=== PATIENT | male | born 1975 | race African-American/Black ===

== ENCOUNTER 2020-03-05 23:56 | Inpatient (IN) | payer BC, OTHER ==
[2020-03-06] MEDS ORDERED: Acetaminophen 325 MG TAB PO PRN (01:56)
[2020-03-06] MEDS ORDERED: Aspirin Chewable 81 MG TAB PO SCH (02:00)
[2020-03-06] MEDS ORDERED: Dextrose 5% in Water 1,000 ML IV PRN (02:05)
[2020-03-06] MEDS ORDERED: Dextrose 50% Abboject 50 ML SYRINGE SLOW IVP PRN (02:05)
[2020-03-06] MEDS ORDERED: Insulin Regular 300 UNITS/3 ML VIAL SC PRN (02:05)
--- NOTE | 2020-03-06 02:15 | PDOC.EVN ---
Event Note - Event Note Event Note: [id number] HP dictated
[2020-03-06] MEDS: cefTRIAXone\\ROCEPHIN 1 GM in Sodium Chloride 0.9% 100 ML IVPB SCH (02:25)
[2020-03-06] MEDS: Diltiazem 125 MG in Sodium Chloride 0.9% 100 ML IVPB SCH ×2 (02:36→17:33)
[2020-03-06] MEDS: Azithromycin 500 MG in Sodium Chloride 0.9% 250 ML 250 ML IVPB SCH (02:37)
--- NOTE | 2020-03-06 03:05 | HP ---
CHIEF COMPLAINT: Shortness of breath. HISTORY OF PRESENT ILLNESS: Mr. Ramirez is a 44-year-old male with past medical history of hypertension, diabetes mellitus, sleep apnea, morbid obesity, among others, presents to [facility] Emergency Room with shortness of breath, fatigue, and weakness. Workup in the emergency room, the patient was found to be in atrial fibrillation with rapid ventricular response. The patient was having low oxygen saturation, placed on nasal cannula, saturation 94% on 3 L/minute nasal cannula. The patient denies fevers or chills. Chest x-ray showed right-sided infiltrate/pneumonia. Rapid COVID-19 test positive. In the emergency room, the patient was given Cardizem, followed by metoprolol. Heart rate remained in the 120s. The patient is on IV diltiazem drip. Current heart rate is in the 90s. Remains in atrial fibrillation. Lab work, also the patient was found to have a creatinine of 1.7. D-dimer was elevated. Requested to transfer the patient to our medical facility for further management. PAST MEDICAL HISTORY: 1. Diabetes mellitus, type 2. 2. Hypertension. PAST SURGICAL HISTORY: Reviewed and not pertinent. FAMILY HISTORY: Reviewed and not pertinent. SOCIAL HISTORY: Denies smoking. Drinks alcohol socially. ALLERGIES: NO KNOWN ALLERGIES. HOME MEDICATIONS: Please see home medication reconciliation form for updated medications. REVIEW OF SYSTEMS: Review of 14 systems negative except what is mentioned in history of present illness. PHYSICAL EXAMINATION: GENERAL: The patient is awake, alert, in moderate distress. VITAL SIGNS: Temperature is 98.1, pulse is 97, respiratory rate is 22, blood pressure is 127/91, oxygen saturation is 94% on 4 L/minute nasal cannula. HEAD AND NECK: Normocephalic and atraumatic. NECK: Supple. CHEST: Few bibasilar crackles. HEART: Irregularly irregular. Tachycardic. ABDOMEN: Obese, soft. Bowel sounds present. NEUROLOGIC: Awake, alert, oriented x3. No focal deficits. PSYCH: Unable to assess. EXTREMITIES: No clubbing or cyanosis. GENITOURINARY: No suprapubic tenderness. No flank tenderness. LABORATORY DATA: Chest x-ray showed right-sided infiltrate/pneumonia. Sodium is 142, potassium 3.2, BUN 23, creatinine 1.7, glucose 132. D-dimer is elevated at 609. TSH is normal. EKG showed atrial fibrillation with rapid ventricular response. ASSESSMENT: 1. Acute hypoxic respiratory failure. 2. Pneumonia, viral, COVID-19 infection. 3. Atrial fibrillation with rapid ventricular response. 4. Morbid obesity. 5. Hypertension. 6. Diabetes mellitus, type 2. 7. Sleep apnea. PLAN: 1. Admit to IMCU. 2. Oxygen to keep saturation more than 92%. 3. We will start the patient on IV antibiotics, cannot rule out superimposed bacterial infection. 4. We will continue the IV diltiazem drip. 5. Anticoagulation. The patient was given Lovenox in the emergency room. We will continue, reassess in a.m. 6. Consult Cardiology in a.m. for evaluation and further recommendations. 7. Consult Pulmonary in a.m. for evaluation and further recommendations. 8. Reconcile medications. 9. DVT prophylaxis. The patient is on anticoagulation. 10. GI prophylaxis. Case was discussed with patient and RN. 11. Expected length of stay, 2 midnights or more. Job ID: [id number]
[2020-03-06 03:45] LABS: #Monocytes 0.4 thou/uL (0.11-0.59); #Neutrophils 4.9 thou/uL (1.40-6.50); %Basophils 0.1 % (0.0-1.0); %Eosinophils 0.4 % (0.0-10.0); %Lymphocytes 16.3 % (21.0-51.0); %Monocytes 6.2 % (0.0-10.0); Hemoglobin 17.4 g/dL (14.0-18.0); Mean Corpuscular Hemoglobin 28.1 pg (27.0-31.0); Mean Corpuscular Volume 90.7 fL (78.0-98.0); Mean Platelet Volume 10.3 fL (7.4-10.4); Platelet Count 136 thou/uL (130-400); RBC Distribution Width 15.6 % (11.5-14.5); Red Blood Cell (RBC) Count 6.19 mill/uL (4.70-6.10); White Blood Cell (WBC) Count 6.4 thou/uL (4.8-10.8)
[2020-03-06 04:11] LABS: ALT (SGPT) 21 U/L (8-55); AST (SGOT) 47 U/L (5-34); Alkaline Phosphatase 62 U/L (40-110); Anion Gap 15 mmol/L (10-20); BUN (Urea Nitrogen) 28 mg/dL (8.9-20.6); Bilirubin, Total 0.9 mg/dL (0.2-1.2); Calc. Creatinine Clearance 97 mL/min (70-130); Calcium 7.7 mg/dL (7.8-10.44); Carbon Dioxide 32 mmol/L (22-29); Chloride 96 mmol/L (98-107); Estimated GFR-MDRD 53; Globulin 3.4 g/dL (2.4-3.5); Glucose 132 mg/dL (70-105); Potassium 3.2 mmol/L (3.5-5.1); Protein, Total 6.4 g/dL (6.0-8.3); Sodium 140 mmol/L (136-145)
[2020-03-06 04:15] LABS: Troponin I 0.026 ng/mL (< 0.028)
[2020-03-06] MEDS: Famotidine/PF 20 mg/2ml Vial SLOW IVP SCH ×2 (08:52→20:50)
[2020-03-06] MEDS: Enoxaparin Sodium 100 MG/ML SYRINGE SC SCH ×2 (08:53→20:50)
[2020-03-06 10:41] LABS: Troponin I 0.018 ng/mL (< 0.028)
[2020-03-06] MEDS ORDERED: Potassium Chloride 20 MEQ TAB PO SCH (12:00)
--- NOTE | 2020-03-06 13:21 | CON ---
DATE OF CONSULTATION: REASON FOR CONSULTATION: Atrial fibrillation. PRIMARY MORTGAGE LOAN ORIGINATOR: None. HISTORY OF PRESENT ILLNESS: Mr. Ramirez is a very pleasant 44-year-old gentleman, who recently tested positive for COVID. He recently also presented with weakness, fatigue, no fever. He was found to be in atrial fibrillation with RVR. He was started on IV Cardizem. No previous history of atrial fibrillation. No chest pain, pressure, or other associated symptoms. PAST MEDICAL HISTORY: Diabetes mellitus, hypertension, obesity. SOCIAL HISTORY: No current tobacco use. Occasional alcohol use. ALLERGIES: NONE. HOME MEDICATIONS: Include; 1. Metformin. 2. Losartan/hydrochlorothiazide. 3. Carvedilol. 4. Atorvastatin. 5. Amlodipine. REVIEW OF SYSTEMS: A 10-point review of systems is reviewed and as above, otherwise negative. PHYSICAL EXAMINATION: VITAL SIGNS: Blood pressure 139/97, pulse 88, temperature 99.3. Due to COVID crisis, physical exam not performed. PERTINENT LABORATORY DATA: Hemoglobin 17.4, hematocrit 56.2. Creatinine 1.7 with a GFR of 53. IMPRESSION: 1. New onset atrial fibrillation. 2. COVID positive. 3. Obesity. 4. Obstructive sleep apnea. 5. Hypertension. RECOMMENDATIONS: 1. We will supplement with p.o. Cardizem in hopes of titrating down IV Cardizem. 2. Add anticoagulation therapy. 3. Continue supportive care for COVID. Job ID: [id number]
[2020-03-06] MEDS: Carvedilol 25 MG TAB PO SCH (17:35)
[2020-03-06] MEDS ORDERED: Albuterol Sulfate 1.25 MG/3 ML NEB NEB PRN (21:06)
[2020-03-06] MEDS: Albuterol 200 PUFF (6.7GM INHALER) INH PRN (21:25)
[2020-03-07] MEDS: cefTRIAXone\\ROCEPHIN 1 GM in Sodium Chloride 0.9% 100 ML IVPB SCH (01:30)
[2020-03-07] MEDS: Azithromycin 500 MG in Sodium Chloride 0.9% 250 ML 250 ML IVPB SCH (02:56)
[2020-03-07] MEDS: Diltiazem 125 MG in Sodium Chloride 0.9% 100 ML IVPB SCH (02:56)
[2020-03-07 03:50] LABS: Cardiac Risk 4.5 (Less than 4.5)
--- NOTE | 2020-03-07 08:43 | PDOC.HOSPP ---
- Subjective Encounter Date: 03/07/20 Subjective: The patient has no new complaints today. He expressed frustration about being in the hospital. - Objective Vital Signs & Weight: Vital Signs (12 hours) Temp Pulse Ox 03/07/20 08:00 93 L 03/07/20 03:42 98.1 F Weight Weight 274 lb Most Recent Monitor Data Heart Rate from ECG 92 NIBP 113/97 NIBP BP-Mean 102 Respiration from ECG 24 SpO2 95 I&O: 03/06/20 03/07/20 03/08/20 06:59 06:59 06:59 Intake Total 830 1780 Output Total 500 950 Balance 330 830 Result Diagrams: 03/06/20 03:22 03/06/20 03:22 Additional Labs: Accuchecks 03/07/20 03/06/20 03/06/20 05:16 20:57 17:48 POC Glucose 99 233 H 137 H 03/06/20 12:11 POC Glucose 141 H Hospitalist ROS - Medication Medications: Active Medications Generic Name Dose Route Start Last Admin Trade Name Freq PRN Reason Stop Dose Admin Acetaminophen 650 mg 03/06/20 01:56 03/06/20 11:59 Tylenol PO 650 mg Q4H PRN Administration Headache/Fever/Mild Pain (1-3) Albuterol Sulfate 1 puff 03/06/20 21:09 03/06/20 21:25 Proventil Hfa INH 1 puff Q8H PRN Administration Wheezing Carvedilol 25 mg 03/06/20 17:00 03/06/20 17:35 Coreg PO 25 mg BID-WM SHANIKA Administration Enoxaparin Sodium 100 mg 03/06/20 09:00 03/06/20 20:50 Lovenox SC 100 mg 0900,2100 SHANIKA Administration Famotidine 20 mg 03/06/20 09:00 03/06/20 20:50 Pepcid SLOW IVP 20 mg Q12HR SHANIKA Administration Azithromycin 500 mg/ Sodium 250 mls @ 250 mls/hr 03/06/20 03:00 03/07/20 02: 56 Chloride IVPB 250 mls Q24HR SHANIKA Administration Ceftriaxone Sodium 1 gm/ 100 mls @ 200 mls/hr 03/06/20 02:00 03/07/20 01:30 Sodium Chloride IVPB 100 mls Q24HR SHANIKA Administration Diltiazem HCl 125 mg/ Sodium 125 mls @ 5 mls/hr 03/06/20 02:15 03/07/20 02:56 Chloride IVPB 125 mls INF SHANIKA Administration Protocol 5 MG/HR Sodium Chloride 10 ml 03/06/20 09:00 03/06/20 20:50 Flush - Normal Saline IVF 10 ml Q12HR SHANIKA Administration - Exam General Appearance: awake alert ENT: normocephalic atraumatic Neck: supple Heart - other findings: Irregularly irregular rhythm with controlled rate. Gastrointestinal: soft, non-tender, non-distended, normal bowel sounds Neurological: cranial nerve grossly intact, no focal deficits Hosp A/P (1) Pneumonia due to COVID-19 virus Code(s): U07.1 - COVID-19; J12.89 - OTHER VIRAL PNEUMONIA Status: Acute (2) Atrial fibrillation with rapid ventricular response Code(s): I48.91 - UNSPECIFIED ATRIAL FIBRILLATION Status: Acute (3) HTN (hypertension) Code(s): I10 - ESSENTIAL (PRIMARY) HYPERTENSION Status: Acute (4) Acute respiratory failure with hypoxia Code(s): J96.01 - ACUTE RESPIRATORY FAILURE WITH HYPOXIA Status: Acute (5) DM2 (diabetes mellitus, type 2) Status: Acute - Plan The patient is still requiring oxygen. Discussed with pulmonology yesterday. The patient would not be a candidate for Rimdazivir at this time because the medication is being reserved for sicker patients due to nationwide shortage. His atrial fibrillation is controlled on diltiazem drip and oral carvedilol. Cardiology planning to switch his diltiazem to oral form today. The patient is on Lovenox for embolic CVA prophylaxis due to elevated chads vasc score. Continue metformin and insulin sliding scale for diabetes.
[2020-03-07] MEDS: Mometasone 200 MCG/Formoterol 5 MCG 120 PUFF INHALER INH SCH ×2 (09:04→21:04)
[2020-03-07 09:06] LABS: Hemoglobin 16.6 g/dL (14.0-18.0); Mean Corpuscular HGB CONC 30.1 g/dL (32.0-36.0); Mean Corpuscular Hemoglobin 28.2 pg (27.0-31.0); Mean Corpuscular Volume 93.5 fL (78.0-98.0); Platelet Count 133 thou/uL (130-400); RBC Distribution Width 15.8 % (11.5-14.5)
[2020-03-07] MEDS: metFORMIN 500 MG TAB PO SCH ×2 (09:08→16:25)
[2020-03-07] MEDS: Amlodipine 10 MG TAB PO SCH (09:08)
[2020-03-07] MEDS: Famotidine/PF 20 mg/2ml Vial SLOW IVP SCH ×2 (09:08→21:04)
[2020-03-07] MEDS: Atorvastatin Calcium 40 MG TAB PO SCH (09:08)
[2020-03-07] MEDS: Enoxaparin Sodium 100 MG/ML SYRINGE SC SCH ×2 (09:08→21:04)
[2020-03-07 09:13] LABS: Anion Gap 13 mmol/L (10-20); BUN (Urea Nitrogen) 27 mg/dL (8.9-20.6); Calc. Creatinine Clearance 144 mL/min (70-130); Calcium 7.9 mg/dL (7.8-10.44); Carbon Dioxide 32 mmol/L (22-29); Chloride 95 mmol/L (98-107); Estimated GFR-MDRD 85; Glucose 101 mg/dL (70-105); Potassium 3.3 mmol/L (3.5-5.1); Sodium 137 mmol/L (136-145)
[2020-03-07 09:43] LABS: Lymphocytes 9 % (21-51); MDiff Complete? YES; Monocytes 6 % (0-10); Neutrophil 82 % (42-75); Nucleated RBC 2 % (0); Platelet Morphology Comment Appears Adequate; Reactive Lymphocytes 2 % (0-10); White Blood Cell (WBC) Count 5.4 thou/uL (4.8-10.8)
[2020-03-07] MEDS: Carvedilol 25 MG TAB PO SCH ×2 (11:15→16:25)
[2020-03-08] MEDS: cefTRIAXone\\ROCEPHIN 1 GM in Sodium Chloride 0.9% 100 ML IVPB SCH (02:03)
[2020-03-08] MEDS: Azithromycin 500 MG in Sodium Chloride 0.9% 250 ML 250 ML IVPB SCH (03:30)
[2020-03-08 04:28] LABS: Band 28 % (5-11); Hemoglobin 15.7 g/dL (14.0-18.0); Lymphocytes 11 % (21-51); MDiff Complete? YES; Mean Corpuscular HGB CONC 31.3 g/dL (32.0-36.0); Mean Corpuscular Hemoglobin 28.7 pg (27.0-31.0); Mean Corpuscular Volume 91.7 fL (78.0-98.0); Mean Platelet Volume 11.8 fL (7.4-10.4); Monocytes 3 % (0-10); Neutrophil 58 % (42-75); Platelet Count 141 thou/uL (130-400); Platelet Morphology Comment Appears Adequate; RBC Distribution Width 15.8 % (11.5-14.5); Red Blood Cell (RBC) Count 5.49 mill/uL (4.70-6.10); White Blood Cell (WBC) Count 6.6 thou/uL (4.8-10.8)
[2020-03-08 04:34] LABS: Anion Gap 15 mmol/L (10-20); BUN (Urea Nitrogen) 26 mg/dL (8.9-20.6); Calc. Creatinine Clearance 140 mL/min (70-130); Calcium 7.8 mg/dL (7.8-10.44); Carbon Dioxide 31 mmol/L (22-29); Chloride 97 mmol/L (98-107); Estimated GFR-MDRD 82; Glucose 100 mg/dL (70-105); Potassium 3.5 mmol/L (3.5-5.1); Sodium 139 mmol/L (136-145)
[2020-03-08] MEDS: Diltiazem 125 MG in Sodium Chloride 0.9% 100 ML IVPB SCH (06:33)
[2020-03-08] MEDS: Mometasone 200 MCG/Formoterol 5 MCG 120 PUFF INHALER INH SCH ×2 (06:48→22:42)
[2020-03-08] MEDS: Famotidine/PF 20 mg/2ml Vial SLOW IVP SCH ×2 (09:07→22:19)
[2020-03-08] MEDS: Atorvastatin Calcium 40 MG TAB PO SCH (09:07)
[2020-03-08] MEDS: Amlodipine 10 MG TAB PO SCH (09:07)
[2020-03-08] MEDS: metFORMIN 500 MG TAB PO SCH ×2 (09:07→17:07)
[2020-03-08] MEDS: Carvedilol 25 MG TAB PO SCH ×2 (09:07→17:07)
[2020-03-08] MEDS: Enoxaparin Sodium 100 MG/ML SYRINGE SC SCH (09:09)
--- NOTE | 2020-03-08 20:13 | PDOC.HOSPP ---
- Subjective Encounter Date: 03/08/20 Subjective: The patient is feeling better and denies any new complaints. - Objective Vital Signs & Weight: Vital Signs (12 hours) Pulse 03/08/20 09:07 107 H Weight Weight 274 lb Most Recent Monitor Data Heart Rate from ECG 90 NIBP 107/74 NIBP BP-Mean 85 Respiration from ECG 30 SpO2 93 I&O: 03/07/20 03/08/20 03/09/20 06:59 06:59 06:59 Intake Total 1780 240 Output Total 950 400 Balance 830 -160 Result Diagrams: 03/08/20 03:22 03/08/20 03:22 Additional Labs: Accuchecks 03/08/20 03/08/20 03/07/20 12:13 06:45 22:22 POC Glucose 109 110 98 Hospitalist ROS - Medication Medications: Active Medications Generic Name Dose Route Start Last Admin Trade Name Freq PRN Reason Stop Dose Admin Acetaminophen 650 mg 03/06/20 01:56 03/06/20 11:59 Tylenol PO 650 mg Q4H PRN Administration Headache/Fever/Mild Pain (1-3) Albuterol Sulfate 1 puff 03/06/20 21:09 03/06/20 21:25 Proventil Hfa INH 1 puff Q8H PRN Administration Wheezing Amlodipine Besylate 10 mg 03/07/20 09:00 03/08/20 09:07 Norvasc PO 10 mg DAILY SHANIKA Administration Atorvastatin Calcium 40 mg 03/07/20 09:00 03/08/20 09:07 Lipitor PO 40 mg DAILY SHANIKA Administration Carvedilol 25 mg 03/06/20 17:00 03/08/20 17:07 Coreg PO 25 mg BID-WM SHANIKA Administration Diltiazem HCl 60 mg 03/08/20 09:00 03/08/20 17:08 Cardizem PO 60 mg 0100,0900,1700 SHANIKA Administration Famotidine 20 mg 03/06/20 09:00 03/08/20 09:07 Pepcid SLOW IVP 20 mg Q12HR SHANIKA Administration Azithromycin 500 mg/ Sodium 250 mls @ 250 mls/hr 03/06/20 03:00 03/08/20 03: 30 Chloride IVPB 250 mls Q24HR SHANIKA Administration Ceftriaxone Sodium 1 gm/ 100 mls @ 200 mls/hr 03/06/20 02:00 03/08/20 02:03 Sodium Chloride IVPB 100 mls Q24HR SHANIKA Administration Diltiazem HCl 125 mg/ Sodium 125 mls @ 5 mls/hr 03/06/20 02:15 03/08/20 06:33 Chloride IVPB 125 mls INF SHANIKA Administration Protocol 5 MG/HR Metformin HCl 1,000 mg 03/07/20 08:00 03/08/20 17:07 Glucophage PO 1,000 mg BID-WM SHANIKA Administration Mometasone Furoate/Formoterol Fumar 2 puff 03/07/20 06:30 03/08/20 06:48 Dulera 200 Mcg/5 Mcg Inhaler INH Not Given BID-RT SHANKIA Sodium Chloride 10 ml 03/06/20 09:00 03/08/20 09:09 Flush - Normal Saline IVF 10 ml Q12HR SHANIKA Administration - Exam General Appearance: awake alert ENT: normocephalic atraumatic Neck: supple Heart: no murmur, no gallops, no rubs, normal peripheral pulses Heart - other findings: Irregularly irregular rhythm Respiratory: CTAB, no wheezes, no rales, no ronchi, normal chest expansion Hosp A/P (1) Pneumonia due to COVID-19 virus Code(s): U07.1 - COVID-19; J12.89 - OTHER VIRAL PNEUMONIA Status: Acute (2) Atrial fibrillation with rapid ventricular response Code(s): I48.91 - UNSPECIFIED ATRIAL FIBRILLATION Status: Acute (3) HTN (hypertension) Code(s): I10 - ESSENTIAL (PRIMARY) HYPERTENSION Status: Acute (4) Acute respiratory failure with hypoxia Code(s): J96.01 - ACUTE RESPIRATORY FAILURE WITH HYPOXIA Status: Acute (5) DM2 (diabetes mellitus, type 2) Status: Acute - Plan 03/07: The patient is still requiring oxygen. Discussed with pulmonology yesterday. The patient would not be a candidate for Rimdazivir at this time because the medication is being reserved for sicker patients due to nationwide shortage. His atrial fibrillation is controlled on diltiazem drip and oral carvedilol. Cardiology planning to switch his diltiazem to oral form today. The patient is on Lovenox for embolic CVA prophylaxis due to elevated chads vasc score. Continue metformin and insulin sliding scale for diabetes. 03/08: The patient is saturating well on room air. Atrial fibrillation is now controlled on oral carvedilol and diltiazem. Diltiazem drip will be weaned off today. We can likely discharge patient tomorrow. Eliquis has been initiated for anticoagulation.
[2020-03-08] MEDS ORDERED: Apixaban 5 MG TAB PO SCH (21:00)
[2020-03-09] MEDS: cefTRIAXone\\ROCEPHIN 1 GM in Sodium Chloride 0.9% 100 ML IVPB SCH (02:48)
[2020-03-09] MEDS: Azithromycin 500 MG in Sodium Chloride 0.9% 250 ML 250 ML IVPB SCH (02:48)
[2020-03-09 04:13] LABS: Anion Gap 14 mmol/L (10-20); BUN (Urea Nitrogen) 39 mg/dL (8.9-20.6); Calc. Creatinine Clearance 61 mL/min (70-130); Carbon Dioxide 32 mmol/L (22-29); Chloride 96 mmol/L (98-107); Estimated GFR-MDRD 31; Glucose 99 mg/dL (70-105); Potassium 3.6 mmol/L (3.5-5.1); Sodium 138 mmol/L (136-145)
[2020-03-09 04:13] LABS: Band 8 % (5-11); Hemoglobin 16.7 g/dL (14.0-18.0); Lymphocytes 1 % (21-51); MDiff Complete? YES; Mean Corpuscular HGB CONC 29.8 g/dL (32.0-36.0); Mean Corpuscular Hemoglobin 27.1 pg (27.0-31.0); Mean Corpuscular Volume 91.1 fL (78.0-98.0); Mean Platelet Volume 11.1 fL (7.4-10.4); Monocytes 4 % (0-10); Neutrophil 87 % (42-75); Platelet Count 151 thou/uL (130-400); Platelet Morphology Comment Appears Adequate; RBC Morphology Normal; Red Blood Cell (RBC) Count 6.17 mill/uL (4.70-6.10); White Blood Cell (WBC) Count 8.9 thou/uL (4.8-10.8)
[2020-03-09] MEDS ORDERED: Sodium Chloride 0.9% 500 ML IV SCH (09:00)
[2020-03-09] MEDS ORDERED: Sodium Chloride 0.9% 1,000 ML IV SCH (09:00)
[2020-03-09] MEDS: Apixaban 5 MG TAB PO SCH ×2 (09:23→20:47)
[2020-03-09] MEDS: Famotidine/PF 20 mg/2ml Vial SLOW IVP SCH (09:24)
[2020-03-09] MEDS: Atorvastatin Calcium 40 MG TAB PO SCH (09:24)
[2020-03-09] MEDS: Carvedilol 25 MG TAB PO SCH ×2 (09:24→17:20)
[2020-03-09] MEDS: Amlodipine 10 MG TAB PO SCH (09:24)
[2020-03-09] MEDS: Sodium Chloride 0.9% 1,000 ML IV SCH ×3 (09:27→22:14)
[2020-03-09 09:29] LABS: Hemoglobin 17.2 g/dL (14.0-18.0); Platelet Count 154 thou/uL (130-400)
[2020-03-09] MEDS: metFORMIN 500 MG TAB PO SCH (09:45)
[2020-03-09 11:27] LABS: Base Excess (BEa) 4.4 mEq/L (-2.0 to +3.0); CO2 Tension 47.6 mmHg (35.0-45.0); Calcium, Ionized (arterial) 1.08 mmol/L (1.12-1.30); Carboxyhemoglobin (COHb) 1.7 gm% (0.0-3.0); Hemoglobin (Hb) 17.5 g/dL (14.0-18.0); O2 Tension (PaO2), arterial 51.1 mmHg (80.0-100.0); Potassium - ABG Lab 3.52 mmol/L (3.70-5.30); Puncture Site RRA; pH, Arterial 7.42 (7.35-7.45)
--- NOTE | 2020-03-09 11:36 | PDOC.HOSPP ---
- Subjective Encounter Date: 03/09/20 Subjective: The patient has been having poor oral intake per nursing staff. - Objective Vital Signs & Weight: Vital Signs (12 hours) Temp Pulse Pulse Ox 03/09/20 09:24 107 H 03/09/20 08:00 93 L 03/09/20 05:21 98.7 F Weight Weight 280 lb 14.4 oz Most Recent Monitor Data Heart Rate from ECG 96 NIBP 113/87 NIBP BP-Mean 95 Respiration from ECG 20 SpO2 91 I&O: 03/08/20 03/09/20 03/10/20 06:59 06:59 06:59 Intake Total 240 240 Output Total 400 300 Balance -160 -60 Result Diagrams: 03/09/20 09:09 03/09/20 03:10 Additional Labs: Accuchecks 03/09/20 03/08/20 03/08/20 05:21 22:34 12:13 POC Glucose 114 H 90 109 Hospitalist ROS - Medication Medications: Active Medications Generic Name Dose Route Start Last Admin Trade Name Freq PRN Reason Stop Dose Admin Acetaminophen 650 mg 03/06/20 01:56 03/06/20 11:59 Tylenol PO 650 mg Q4H PRN Administration Headache/Fever/Mild Pain (1-3) Albuterol Sulfate 1 puff 03/06/20 21:09 03/06/20 21:25 Proventil Hfa INH 1 puff Q8H PRN Administration Wheezing Amlodipine Besylate 10 mg 03/07/20 09:00 03/09/20 09:24 Norvasc PO 10 mg DAILY SHANIKA Administration Apixaban 2.5 mg 03/09/20 09:00 03/09/20 09:23 Eliquis PO 2.5 mg BID SHANIKA Administration Atorvastatin Calcium 40 mg 03/07/20 09:00 03/09/20 09:24 Lipitor PO 40 mg DAILY SHANIKA Administration Carvedilol 25 mg 03/06/20 17:00 03/09/20 09:24 Coreg PO 25 mg BID-WM SHANIKA Administration Diltiazem HCl 60 mg 03/08/20 09:00 03/09/20 09:24 Cardizem PO 60 mg 0100,0900,1700 SHANIKA Administration Famotidine 20 mg 03/06/20 09:00 03/09/20 09:24 Pepcid SLOW IVP 20 mg Q12HR SHANIKA Administration Sodium Chloride 1,000 mls @ 150 mls/hr 03/09/20 09:08 03/09/20 09:27 Normal Saline 0.9% IV 1,000 mls .Q6H40M SHANIKA Administration Mometasone Furoate/Formoterol Fumar 2 puff 03/07/20 06:30 03/08/20 22:42 Dulera 200 Mcg/5 Mcg Inhaler INH Not Given BID-RT SHANIKA Sodium Chloride 10 ml 03/06/20 09:00 03/09/20 09:25 Flush - Normal Saline IVF 10 ml Q12HR SHANIKA Administration - Exam General Appearance: awake alert ENT: normocephalic atraumatic Neck: supple Heart: RRR Respiratory: normal chest expansion, no tachypnea Gastrointestinal: soft, non-tender Neurological: cranial nerve grossly intact, no new deficit Hosp A/P (1) Pneumonia due to COVID-19 virus Code(s): U07.1 - COVID-19; J12.89 - OTHER VIRAL PNEUMONIA Status: Acute (2) Atrial fibrillation with rapid ventricular response Code(s): I48.91 - UNSPECIFIED ATRIAL FIBRILLATION Status: Acute (3) HTN (hypertension) Code(s): I10 - ESSENTIAL (PRIMARY) HYPERTENSION Status: Acute (4) Acute respiratory failure with hypoxia Code(s): J96.01 - ACUTE RESPIRATORY FAILURE WITH HYPOXIA Status: Acute (5) DM2 (diabetes mellitus, type 2) Status: Acute - Plan 03/07: The patient is still requiring oxygen. Discussed with pulmonology yesterday. The patient would not be a candidate for Rimdazivir at this time because the medication is being reserved for sicker patients due to nationwide shortage. His atrial fibrillation is controlled on diltiazem drip and oral carvedilol. Cardiology planning to switch his diltiazem to oral form today. The patient is on Lovenox for embolic CVA prophylaxis due to elevated chads vasc score. Continue metformin and insulin sliding scale for diabetes. 03/08: The patient is saturating well on room air. Atrial fibrillation is now controlled on oral carvedilol and diltiazem. Diltiazem drip will be weaned off today. We can likely discharge patient tomorrow. Eliquis has been initiated for anticoagulation. 03/09: Acute kidney injury noted today. BUN over creatinine ratio suggesting prerenal etiology. Start IV fluids. Encourage p.o. intake. Decrease Eliquis dose to 2.5 mg until creatinine level improves. Recheck BMP.
[2020-03-09] MEDS: Mometasone 200 MCG/Formoterol 5 MCG 120 PUFF INHALER INH SCH (13:15)
[2020-03-09 15:01] LABS: Bacteria/HPF None Seen HPF (None Seen); Potassium, Urine 70.1 mmol/L; RBC/HPF 0-3 HPF (0-3); WBC/HPF 0-3 HPF (0-3)
[2020-03-09 15:50] LABS: Anion Gap 14 mmol/L (10-20); BUN (Urea Nitrogen) 47 mg/dL (8.9-20.6); Calc. Creatinine Clearance 44 mL/min (70-130); Calcium 7.7 mg/dL (7.8-10.44); Carbon Dioxide 30 mmol/L (22-29); Chloride 97 mmol/L (98-107); Estimated GFR-MDRD 21; Glucose 133 mg/dL (70-105); Potassium 3.7 mmol/L (3.5-5.1); Sodium 137 mmol/L (136-145)
--- NOTE | 2020-03-09 18:00 | PRG ---
DATE OF SERVICE: SUBJECTIVE: Mr. Ramirez is doing much better. He is off IV Cardizem. He is only on p.o. Cardizem. Eliquis was also started today. OBJECTIVE: VITAL SIGNS: Blood pressure 104/52, pulse 84, respirations 20. Due to patient being COVID positive, physical exam was deferred. IMPRESSION: 1. Atrial fibrillation. 2. COVID positive. 3. Likely sleep apnea. RECOMMENDATIONS: 1. Continue to rate control with p.o. Cardizem. 2. Agree with adding Eliquis. 3. Further recommendations on COVID per primary team. Job ID: [id number]
[2020-03-09] MEDS: Famotidine 20 MG TAB PO SCH (20:47)
[2020-03-10 03:59] LABS: Anion Gap 16 mmol/L (10-20); BUN (Urea Nitrogen) 56 mg/dL (8.9-20.6); Calc. Creatinine Clearance 35 mL/min (70-130); Calcium 7.6 mg/dL (7.8-10.44); Carbon Dioxide 27 mmol/L (22-29); Chloride 99 mmol/L (98-107); Estimated GFR-MDRD 16; Glucose 96 mg/dL (70-105); Potassium 3.5 mmol/L (3.5-5.1); Sodium 138 mmol/L (136-145)
[2020-03-10 04:04] LABS: Band 25 % (5-11); Hemoglobin 16.2 g/dL (14.0-18.0); Lymphocytes 4 % (21-51); MDiff Complete? YES; Mean Corpuscular HGB CONC 30.9 g/dL (32.0-36.0); Mean Corpuscular Volume 90.7 fL (78.0-98.0); Mean Platelet Volume 11.9 fL (7.4-10.4); Monocytes 4 % (0-10); Neutrophil 67 % (42-75); Platelet Count 177 thou/uL (130-400); Platelet Morphology Comment Appears Adequate; RBC Distribution Width 16.1 % (11.5-14.5); Red Blood Cell (RBC) Count 5.78 mill/uL (4.70-6.10); White Blood Cell (WBC) Count 8.5 thou/uL (4.8-10.8)
[2020-03-10] MEDS: Mometasone 200 MCG/Formoterol 5 MCG 120 PUFF INHALER INH SCH ×3 (05:24→20:31)
[2020-03-10] MEDS: Sodium Chloride 0.9% 1,000 ML IV SCH ×4 (05:24→23:18)
[2020-03-10] MEDS ORDERED: Dexamethasone 4 MG TAB PO SCH ×2 (09:10→09:30)
[2020-03-10] MEDS: Amlodipine 10 MG TAB PO SCH (10:18)
[2020-03-10] MEDS: Carvedilol 25 MG TAB PO SCH ×2 (10:18→17:30)
[2020-03-10] MEDS: Atorvastatin Calcium 40 MG TAB PO SCH (10:18)
[2020-03-10] MEDS: Apixaban 5 MG TAB PO SCH ×2 (10:18→20:29)
[2020-03-10] MEDS: Famotidine 20 MG TAB PO SCH (10:19)
[2020-03-10] MEDS: Dexamethasone 4 MG TAB PO SCH (10:27)
--- NOTE | 2020-03-10 12:16 | ULT ---
ULTRASOUND RETROPERITONEUM COMPLETE: (RENAL) DATE: 03/10/2020 HISTORY: Acute kidney injury in 44-year-old male FINDINGS: The bilateral kidneys are very difficult to visualize because of abnormally diffusely increased echog enicity such that the renal parenchyma appears almost identical to that of background retroperitoneal fat on ultrasound. Right kidney is measured as approximately 11.5 x 8.5 x 7.5 cm. Left kidney is measured as approximately 13 x 6.5 x 6.5 cm. No hydronephrosis. Minimal, tiny amount of questionable fluid adjacent to the right renal mid-lower pole. Round, approximately 3 x 2.5 cm hypoechoic structure with irregular margins at deep, posterior/mid po le of left kidney is incompletely evaluated. Uncertain whether solid or cystic mass. Urinary bladder is elongated in the craniocaudal dimension, with 55 mL volume. IMPRESSION: 1) evidence for acute medical renal disease, acute kidney injury: Abnormally echogenic, enlarged bila teral kidneys. 2) no hydronephrosis 3) incompletely evaluated 3 cm lesion in left kidney.
--- NOTE | 2020-03-10 21:44 | PDOC.HOSPP ---
- Subjective Encounter Date: 03/10/20 - Objective Vital Signs & Weight: Vital Signs (12 hours) Temp Pulse 03/10/20 20:35 98.1 F 03/10/20 10:18 107 H Weight Weight 280 lb 14.4 oz Most Recent Monitor Data Heart Rate from ECG 84 NIBP 110/61 NIBP BP-Mean 77 Respiration from ECG 23 SpO2 100 I&O: 03/09/20 03/10/20 03/11/20 06:59 06:59 06:59 Intake Total 240 4150 2300 Output Total 300 550 450 Balance -60 3600 1850 Result Diagrams: 03/10/20 03:02 03/10/20 03:02 Additional Labs: Accuchecks 03/10/20 20:42 POC Glucose 160 H Hospitalist ROS - Medication Medications: Active Medications Generic Name Dose Route Start Last Admin Trade Name Freq PRN Reason Stop Dose Admin Acetaminophen 650 mg 03/06/20 01:56 03/06/20 11:59 Tylenol PO 650 mg Q4H PRN Administration Headache/Fever/Mild Pain (1-3) Albuterol Sulfate 1 puff 03/06/20 21:09 03/06/20 21:25 Proventil Hfa INH 1 puff Q8H PRN Administration Wheezing Amlodipine Besylate 10 mg 03/07/20 09:00 03/10/20 10:18 Norvasc PO 10 mg DAILY SHANIKA Administration Apixaban 2.5 mg 03/09/20 09:00 03/10/20 20:29 Eliquis PO 2.5 mg BID SHANIKA Administration Atorvastatin Calcium 40 mg 03/07/20 09:00 03/10/20 10:18 Lipitor PO 40 mg DAILY SHANIKA Administration Carvedilol 25 mg 03/06/20 17:00 03/10/20 17:30 Coreg PO 25 mg BID-WM SHANIKA Administration Diltiazem HCl 60 mg 03/08/20 09:00 03/10/20 17:29 Cardizem PO 60 mg 0100,0900,1700 SHANIKA Administration Mometasone Furoate/Formoterol Fumar 2 puff 03/07/20 06:30 03/10/20 20:31 Dulera 200 Mcg/5 Mcg Inhaler INH Not Given BID-RT SHANIKA Sodium Chloride 10 ml 03/06/20 09:00 03/10/20 20:30 Flush - Normal Saline IVF Not Given Q12HR SHANIKA - Exam General Appearance: awake alert ENT: normocephalic atraumatic Neck: supple Heart: irregular Respiratory: normal chest expansion, no tachypnea Gastrointestinal: soft, non-tender, non-distended, normal bowel sounds Hosp A/P (1) Pneumonia due to COVID-19 virus Code(s): U07.1 - COVID-19; J12.89 - OTHER VIRAL PNEUMONIA Status: Acute (2) Atrial fibrillation with rapid ventricular response Code(s): I48.91 - UNSPECIFIED ATRIAL FIBRILLATION Status: Acute (3) HTN (hypertension) Code(s): I10 - ESSENTIAL (PRIMARY) HYPERTENSION Status: Acute (4) Acute respiratory failure with hypoxia Code(s): J96.01 - ACUTE RESPIRATORY FAILURE WITH HYPOXIA Status: Acute (5) DM2 (diabetes mellitus, type 2) Status: Acute (6) MESFIN (acute kidney injury) Code(s): N17.9 - ACUTE KIDNEY FAILURE, UNSPECIFIED Status: Acute - Plan 03/07: The patient is still requiring oxygen. Discussed with pulmonology yesterday. The patient would not be a candidate for Rimdazivir at this time because the medication is being reserved for sicker patients due to nationwide shortage. His atrial fibrillation is controlled on diltiazem drip and oral carvedilol. Cardiology planning to switch his diltiazem to oral form today. The patient is on Lovenox for embolic CVA prophylaxis due to elevated chads vasc score. Continue metformin and insulin sliding scale for diabetes. 03/08: The patient is saturating well on room air. Atrial fibrillation is now controlled on oral carvedilol and diltiazem. Diltiazem drip will be weaned off today. We can likely discharge patient tomorrow. Eliquis has been initiated for anticoagulation. 03/09: Acute kidney injury noted today. BUN over creatinine ratio suggesting prerenal etiology. Start IV fluids. Encourage p.o. intake. Decrease Eliquis dose to 2.5 mg until creatinine level improves. Recheck BMP. 03/10: Atrial fibrillation is controlled. The patient's hypoxia is improving. Decadron has been initiated. Decrease IV fluids to 75 cc/h. Creatinine level is still worsening. This is likely due to acute tubular necrosis. Ultrasound of the kidneys showing acute medical disease. Avoid any current nephrotoxic medications. Nephrology consultation pending. Transfer to medical floor.
[2020-03-11 00:53] LABS: Creatinine, Urine 88.31 mg/dL (63-166)
--- NOTE | 2020-03-11 00:59 | CON ---
DATE OF CONSULTATION: REASON FOR CONSULTATION: Acute renal failure. HISTORY OF PRESENT ILLNESS: This is a very pleasant 44-year-old gentleman, who presented to the hospital four days ago for shortness of breath and was noted to be treated for COVID positive. His creatinine on admission was 1.7, improved to 1.1, but has risen to 4.7 today, has progressively risen. The patient did not receive any nephrotoxic medications and was not hypotensive. The patient denies any nausea, vomiting, or chest pain. PAST MEDICAL HISTORY: Diabetes mellitus and hypertension. SOCIAL HISTORY: No alcohol or drug use. FAMILY HISTORY: Negative for ESRD. ALLERGIES: REVIEWED. HOME MEDICATION LIST: Reviewed. HOSPITAL MEDICATION LIST: Reviewed. REVIEW OF SYSTEMS: A 15-point review of system was performed and negative except for positives noted above. HEENT: Eyes intact, no diplopia. Ears: No hearing loss or earache. Nose: No discharge or bleeding. Chest: No cough or phlegm. Abdomen: No nausea or vomiting. Genitourinary: No hematuria. No Albarran catheter. Musculoskeletal: No low back pain. No joint swelling or pain. Neurological: No syncope. No seizures. Skin: No complaints of rash or itching. Psychiatric: No depression. Constitutional: No weight loss or loss of appetite. PHYSICAL EXAMINATION: General: The patient is awake and alert. Vital Signs: Afebrile, pulse 95, breathing at 16, blood pressure 130/70. HEENT: Head normocephalic and atraumatic. Eyes intact, no ulcers. Nose intact, no ulcers. Ears intact, no ulcers. Neck: Supple. No JVD. Chest: Symmetrical and clear. Cardiovascular: Shows S1 and S2, no rub, no murmur. Gastrointestinal: Abdomen is soft, bowel sounds positive. Extremities: Show no edema or ulcers. Skin: Shows no rash or petechiae. Musculoskeletal: Shows no joint swelling or stiffness. Genitourinary: Shows no Albarran or CVA tenderness. Neurologic: Motor intact. Cranial nerves intact. LABORATORY DATA: Show creatinine 4.7. ASSESSMENT AND RECOMMENDATIONS: 1. Acute kidney injury with chronic kidney disease, stage 4, most likely due to acute tubular necrosis from infectious etiology. I will order renal imaging and look for the etiology of renal failure. 2. Hypertension, stable. 3. Medication based on GFR appropriate. No indication for dialysis at this time. Continue hydration. Job ID: [id number]
[2020-03-11 05:34] LABS: Band 2 % (5-11); Hemoglobin 16.5 g/dL (14.0-18.0); Lymphocytes 4 % (21-51); MDiff Complete? YES; Mean Corpuscular HGB CONC 32.2 g/dL (32.0-36.0); Mean Corpuscular Hemoglobin 29.5 pg (27.0-31.0); Mean Corpuscular Volume 91.5 fL (78.0-98.0); Mean Platelet Volume 10.8 fL (7.4-10.4); Monocytes 4 % (0-10); Neutrophil 90 % (42-75); Platelet Count 176 thou/uL (130-400); Platelet Morphology Comment Appears Adequate; RBC Distribution Width 16.1 % (11.5-14.5); RBC Morphology Normal; Red Blood Cell (RBC) Count 5.59 mill/uL (4.70-6.10); White Blood Cell (WBC) Count 6.3 thou/uL (4.8-10.8)
[2020-03-11 05:44] LABS: Anion Gap 15 mmol/L (10-20); BUN (Urea Nitrogen) 75 mg/dL (8.9-20.6); Calc. Creatinine Clearance 26 mL/min (70-130); Calcium 7.6 mg/dL (7.8-10.44); Carbon Dioxide 21 mmol/L (22-29); Chloride 102 mmol/L (98-107); Estimated GFR-MDRD 11; Glucose 169 mg/dL (70-105); Potassium 3.7 mmol/L (3.5-5.1); Sodium 134 mmol/L (136-145)
[2020-03-11] MEDS: Mometasone 200 MCG/Formoterol 5 MCG 120 PUFF INHALER INH SCH ×2 (06:06→16:31)
[2020-03-11] MEDS: Dexamethasone 4 MG TAB PO SCH (08:04)
[2020-03-11] MEDS: Apixaban 5 MG TAB PO SCH (08:04)
[2020-03-11] MEDS: Atorvastatin Calcium 40 MG TAB PO SCH (08:05)
[2020-03-11] MEDS: Amlodipine 10 MG TAB PO SCH ×2 (08:05→09:36)
[2020-03-11] MEDS: Carvedilol 25 MG TAB PO SCH ×2 (08:05→15:57)
--- NOTE | 2020-03-11 09:11 | PRG ---
DATE OF SERVICE: 03/11/2020 SUBJECTIVE: Mr. Ramirez recently transferred from immediate side to telemetry monitoring. Heart rate has been stable. OBJECTIVE: VITAL SIGNS: Blood pressure 121/79, pulse 74, temperature 98.1. Physical exam deferred due to being COVID positive. IMPRESSION: 1. Atrial fibrillation. 2. COVID positive. 3. Renal failure. RECOMMENDATIONS: 1. Continue Eliquis 2.5 mg one p.o. b.i.d. in addition to carvedilol 25 b.i.d. 2. Discontinue Cardizem; the patient is currently on amlodipine. 3. No further recommendations. We would consider stopping amlodipine and adding diltiazem in the future. Blood pressure management per Nephrology. Otherwise, we will sign off. Please re-consult if needed. Job ID: [id number]
[2020-03-11] MEDS: Sodium Chloride 0.9% 1,000 ML IV SCH ×2 (09:26→16:31)
--- NOTE | 2020-03-11 10:45 | PDOC.HOSPP ---
- Subjective Encounter Date: 03/11/20 Subjective: No new complaints. Patient is able to ambulate inside his room with no significant distress. Still requiring oxygen. Creatinine level has been trending up. - Objective Vital Signs & Weight: Vital Signs (12 hours) Temp Pulse Resp BP Pulse Ox 03/11/20 09:36 74 03/11/20 08:05 74 03/11/20 03:20 98.1 F 74 24 H 121/79 93 L 03/10/20 23:16 98.1 F 78 24 H 119/60 93 L Weight Weight 288 lb 9.6 oz Most Recent Monitor Data Heart Rate from ECG 80 NIBP 110/61 NIBP BP-Mean 77 Respiration from ECG 24 SpO2 97 I&O: 03/10/20 03/11/20 03/12/20 06:59 06:59 06:59 Intake Total 4150 3360 Output Total 550 650 Balance 3600 2710 Result Diagrams: 03/11/20 05:10 03/11/20 05:10 Additional Labs: Accuchecks 03/11/20 03/10/20 03:16 20:42 POC Glucose 130 H 160 H Hospitalist ROS - Medication Medications: Active Medications Generic Name Dose Route Start Last Admin Trade Name Freq PRN Reason Stop Dose Admin Acetaminophen 650 mg 03/06/20 01:56 03/06/20 11:59 Tylenol PO 650 mg Q4H PRN Administration Headache/Fever/Mild Pain (1-3) Albuterol Sulfate 1 puff 03/06/20 21:09 03/06/20 21:25 Proventil Hfa INH 1 puff Q8H PRN Administration Wheezing Amlodipine Besylate 5 mg 03/11/20 09:00 03/11/20 09:36 Norvasc PO Not Given DAILY SHANIKA Apixaban 2.5 mg 03/09/20 09:00 03/11/20 08:04 Eliquis PO 2.5 mg BID SHANIKA Administration Atorvastatin Calcium 40 mg 03/07/20 09:00 03/11/20 08:05 Lipitor PO 40 mg DAILY SHANIKA Administration Carvedilol 25 mg 03/06/20 17:00 03/11/20 08:05 Coreg PO 25 mg BID-WM SHANIKA Administration Dexamethasone 6 mg 03/11/20 08:00 03/11/20 08:04 Decadron PO 6 mg QAM-WM SHANIKA Administration Sodium Chloride 1,000 mls @ 75 mls/hr 03/10/20 21:42 03/11/20 09:26 Normal Saline 0.9% IV Not Given .[id number] SHANIKA Mometasone Furoate/Formoterol Fumar 2 puff 03/07/20 06:30 03/11/20 06:06 Dulera 200 Mcg/5 Mcg Inhaler INH 2 puff BID-RT SHANIKA Administration Pantoprazole Sodium 40 mg 03/11/20 09:00 03/11/20 08:04 Protonix PO 40 mg DAILY SHANIKA Administration Sodium Chloride 10 ml 03/06/20 09:00 03/11/20 08:05 Flush - Normal Saline IVF 10 ml Q12HR SHANIKA Administration - Exam General Appearance: awake alert ENT: normocephalic atraumatic Neck: supple Heart - other findings: Irregular, rate controlled. Respiratory: normal chest expansion, no tachypnea Neurological: cranial nerve grossly intact, no focal deficits Hosp A/P (1) Pneumonia due to COVID-19 virus Code(s): U07.1 - COVID-19; J12.89 - OTHER VIRAL PNEUMONIA Status: Acute (2) Atrial fibrillation with rapid ventricular response Code(s): I48.91 - UNSPECIFIED ATRIAL FIBRILLATION Status: Acute (3) HTN (hypertension) Code(s): I10 - ESSENTIAL (PRIMARY) HYPERTENSION Status: Acute (4) Acute respiratory failure with hypoxia Code(s): J96.01 - ACUTE RESPIRATORY FAILURE WITH HYPOXIA Status: Acute (5) DM2 (diabetes mellitus, type 2) Status: Acute (6) MESFIN (acute kidney injury) Code(s): N17.9 - ACUTE KIDNEY FAILURE, UNSPECIFIED Status: Acute - Plan 03/07: The patient is still requiring oxygen. Discussed with pulmonology yesterday. The patient would not be a candidate for Rimdazivir at this time because the medication is being reserved for sicker patients due to nationwide shortage. His atrial fibrillation is controlled on diltiazem drip and oral carvedilol. Cardiology planning to switch his diltiazem to oral form today. The patient is on Lovenox for embolic CVA prophylaxis due to elevated chads vasc score. Continue metformin and insulin sliding scale for diabetes. 03/08: The patient is saturating well on room air. Atrial fibrillation is now controlled on oral carvedilol and diltiazem. Diltiazem drip will be weaned off today. We can likely discharge patient tomorrow. Eliquis has been initiated for anticoagulation. 03/09: Acute kidney injury noted today. BUN over creatinine ratio suggesting prerenal etiology. Start IV fluids. Encourage p.o. intake. Decrease Eliquis dose to 2.5 mg until creatinine level improves. Recheck BMP. 03/10: Atrial fibrillation is controlled. The patient's hypoxia is improving. Decadron has been initiated. Decrease IV fluids to 75 cc/h. Creatinine level is still worsening. This is likely due to acute tubular necrosis. Ultrasound of the kidneys showing acute medical disease. Avoid any current nephrotoxic medications. Nephrology consultation pending. Transfer to medical floor. 03/11: The patient's creatinine level has been worsening. Acute renal failure likely due to ATN related to coronavirus. Continue gentle hydration and continue to monitor his creatinine level until it plateaus. The lesion has been noted in his left kidney that is measuring 3 cm. Further evaluation of this will be done once his condition is stable. He will require outpatient follow-up with urology. Continue Decadron.
--- NOTE | 2020-03-11 12:51 | PRG ---
DATE OF SERVICE: 03/11/2020 SUBJECTIVE: This is a 44-year-old gentleman being seen for acute kidney injury with progressive rise in creatinine. The patient denies any nausea, vomiting, or chest pain. OBJECTIVE: GENERAL: On exam, the patient is awake and alert. VITAL SIGNS: Afebrile, pulse 79, breathing 16, and blood pressure 118/71. HEENT: Head normocephalic and atraumatic. Eyes intact, no ulcers. Nose intact, no ulcers. Ears intact, no ulcers. NECK: Supple. No JVD. CHEST: Symmetrical and clear. CARDIOVASCULAR: Shows S1 and S2, no rub, no murmur. GASTROINTESTINAL: Abdomen is soft, bowel sounds positive. EXTREMITIES: Show no edema or ulcers. SKIN: Shows no rash or petechiae. MUSCULOSKELETAL: Shows no joint swelling or stiffness. GENITOURINARY: Shows no Albarran or CVA tenderness. NEUROLOGIC: Motor intact. Cranial nerves intact. LABORATORY DATA: Labs show potassium 3.7, creatinine 6.6. ASSESSMENT AND PLAN: 1. Chronic kidney disease, stage 5 with acute kidney injury, most likely because of acute tubular necrosis. Continue hydration. 2. Hypertension, stable. 3. Anemia, stable. 4. Medications based on GFR are appropriate. We will follow the patient's renal function closely. Again, no indication for dialysis at this time. 5. Questionable renal mass. We would recommend outpatient urology consultation as well as repeat CT scan without contrast Sunday. Job ID: [id number]
[2020-03-11] MEDS: Apixaban 2.5 MG TAB PO SCH (20:06)
[2020-03-12] MEDS: Sodium Chloride 0.9% 1,000 ML IV SCH ×2 (05:08→16:22)
[2020-03-12] MEDS: Mometasone 200 MCG/Formoterol 5 MCG 120 PUFF INHALER INH SCH ×2 (05:10→21:53)
[2020-03-12 05:30] LABS: Hemoglobin 17.5 g/dL (14.0-18.0); Mean Corpuscular HGB CONC 31.7 g/dL (32.0-36.0); Mean Corpuscular Hemoglobin 28.9 pg (27.0-31.0); Mean Corpuscular Volume 91.1 fL (78.0-98.0); Platelet Count 291 thou/uL (130-400); RBC Distribution Width 20.9 % (11.5-14.5); Red Blood Cell (RBC) Count 6.07 mill/uL (4.70-6.10); White Blood Cell (WBC) Count 8.5 thou/uL (4.8-10.8)
[2020-03-12 05:31] LABS: Band 1 % (5-11); Lymphocytes 8 % (21-51); MDiff Complete? YES; Monocytes 1 % (0-10); Neutrophil 90 % (42-75); Platelet Morphology Comment Appears Adequate
[2020-03-12] MEDS: Dexamethasone 4 MG TAB PO SCH (08:03)
[2020-03-12] MEDS: Carvedilol 25 MG TAB PO SCH ×2 (08:03→16:22)
[2020-03-12] MEDS: Amlodipine 10 MG TAB PO SCH (08:04)
[2020-03-12] MEDS: Apixaban 2.5 MG TAB PO SCH ×2 (08:04→20:56)
[2020-03-12] MEDS: Atorvastatin Calcium 40 MG TAB PO SCH (08:04)
[2020-03-12 09:41] LABS: Hemoglobin 16.6 g/dL (14.0-18.0); Platelet Count 204 thou/uL (130-400)
--- NOTE | 2020-03-12 09:43 | PRG ---
DATE OF SERVICE: 03/12/2020 SUBJECTIVE: This is a 44-year-old gentleman being seen for acute kidney injury. The patient denies any nausea, vomiting, or chest pain. The patient has decreasing urine output. OBJECTIVE: GENERAL: On examination, the patient is awake and alert. VITAL SIGNS: Afebrile, pulse 86, breathing 16, and blood pressure 138/75. HEENT: Head normocephalic and atraumatic. Eyes intact, no ulcers. Nose intact, no ulcers. Ears intact, no ulcers. NECK: Supple. No JVD. CHEST: Symmetrical and clear. CARDIOVASCULAR: Shows S1 and S2, no rub, no murmur. GASTROINTESTINAL: Abdomen is soft, bowel sounds positive. EXTREMITIES: Show no edema or ulcers. SKIN: Shows no rash or petechiae. MUSCULOSKELETAL: Shows no joint swelling or stiffness. GENITOURINARY: Shows no Albarran or CVA tenderness. NEUROLOGIC: Motor intact. Cranial nerves intact. LABORATORY DATA: Labs show hemoglobin 17.5. Creatinine is pending. ASSESSMENT AND PLAN: 1. Chronic kidney disease, stage 5 with acute kidney injury due to acute tubular necrosis, likely infectious etiology. Labs have not been done. I will reorder labs today. 2. Anemia, stable. 3. Medications based on GFR are appropriate. Continue hydration. We will evaluate the need for dialysis. Job ID: [id number]
[2020-03-12 10:01] LABS: Anion Gap 19 mmol/L (10-20); BUN (Urea Nitrogen) 98 mg/dL (8.9-20.6); Calc. Creatinine Clearance 20 mL/min (70-130); Calcium 7.9 mg/dL (7.8-10.44); Carbon Dioxide 20 mmol/L (22-29); Chloride 103 mmol/L (98-107); Estimated GFR-MDRD 8; Glucose 151 mg/dL (70-105); Potassium 3.9 mmol/L (3.5-5.1); Sodium 138 mmol/L (136-145)
--- NOTE | 2020-03-12 18:10 | PDOC.HOSPP ---
- Subjective Encounter Date: 03/12/20 Subjective: No new complaints - Objective Vital Signs & Weight: Vital Signs (12 hours) Temp Pulse Resp BP Pulse Ox 03/12/20 12:00 97.9 F 88 21 H 115/74 94 L 03/12/20 08:38 98.1 F 86 22 H 128/75 93 L 03/12/20 08:04 97 Weight Weight 290 lb Most Recent Monitor Data Heart Rate from ECG 80 NIBP 110/61 NIBP BP-Mean 77 Respiration from ECG 24 SpO2 97 I&O: 03/11/20 03/12/20 03/13/20 06:59 06:59 06:59 Intake Total 3360 2470 Output Total 650 500 Balance 2710 1970 Result Diagrams: 03/12/20 09:30 03/12/20 09:30 Additional Labs: Accuchecks 03/12/20 03/12/20 03/11/20 11:48 04:02 20:18 POC Glucose 142 H 134 H 138 H Hospitalist ROS - Medication Medications: Active Medications Generic Name Dose Route Start Last Admin Trade Name Freq PRN Reason Stop Dose Admin Acetaminophen 650 mg 03/06/20 01:56 03/06/20 11:59 Tylenol PO 650 mg Q4H PRN Administration Headache/Fever/Mild Pain (1-3) Albuterol Sulfate 1 puff 03/06/20 21:09 03/06/20 21:25 Proventil Hfa INH 1 puff Q8H PRN Administration Wheezing Amlodipine Besylate 5 mg 03/11/20 09:00 03/12/20 08:04 Norvasc PO 5 mg DAILY SHANIKA Administration Apixaban 2.5 mg 03/11/20 21:00 03/12/20 08:04 Eliquis PO 2.5 mg BID SHANIKA Administration Atorvastatin Calcium 40 mg 03/07/20 09:00 03/12/20 08:04 Lipitor PO 40 mg DAILY SHANIKA Administration Carvedilol 25 mg 03/06/20 17:00 03/12/20 16:22 Coreg PO 25 mg BID-WM SHANIKA Administration Dexamethasone 6 mg 03/11/20 08:00 03/12/20 08:03 Decadron PO 6 mg QAM-WM SHANIKA Administration Sodium Chloride 1,000 mls @ 75 mls/hr 03/10/20 21:42 03/12/20 16:22 Normal Saline 0.9% IV 1,000 mls .[id number] SHANIKA Administration Mometasone Furoate/Formoterol Fumar 2 puff 03/07/20 06:30 03/12/20 05:10 Dulera 200 Mcg/5 Mcg Inhaler INH 2 puff BID-RT SHANIKA Administration Pantoprazole Sodium 40 mg 03/11/20 09:00 03/12/20 08:04 Protonix PO 40 mg DAILY SHANIKA Administration Sodium Chloride 10 ml 03/06/20 09:00 03/12/20 08:03 Flush - Normal Saline IVF 10 ml Q12HR SHANIKA Administration - Exam General Appearance: awake alert ENT: normocephalic atraumatic Neck: supple Heart: RRR Respiratory: normal chest expansion, no tachypnea Hosp A/P (1) Pneumonia due to COVID-19 virus Code(s): U07.1 - COVID-19; J12.89 - OTHER VIRAL PNEUMONIA Status: Acute (2) Atrial fibrillation with rapid ventricular response Code(s): I48.91 - UNSPECIFIED ATRIAL FIBRILLATION Status: Acute (3) HTN (hypertension) Code(s): I10 - ESSENTIAL (PRIMARY) HYPERTENSION Status: Acute (4) Acute respiratory failure with hypoxia Code(s): J96.01 - ACUTE RESPIRATORY FAILURE WITH HYPOXIA Status: Acute (5) DM2 (diabetes mellitus, type 2) Status: Acute (6) MESFIN (acute kidney injury) Code(s): N17.9 - ACUTE KIDNEY FAILURE, UNSPECIFIED Status: Acute - Plan 03/07: The patient is still requiring oxygen. Discussed with pulmonology yesterday. The patient would not be a candidate for Rimdazivir at this time because the medication is being reserved for sicker patients due to nationwide shortage. His atrial fibrillation is controlled on diltiazem drip and oral carvedilol. Cardiology planning to switch his diltiazem to oral form today. The patient is on Lovenox for embolic CVA prophylaxis due to elevated chads vasc score. Continue metformin and insulin sliding scale for diabetes. 03/08: The patient is saturating well on room air. Atrial fibrillation is now controlled on oral carvedilol and diltiazem. Diltiazem drip will be weaned off today. We can likely discharge patient tomorrow. Eliquis has been initiated for anticoagulation. 03/09: Acute kidney injury noted today. BUN over creatinine ratio suggesting prerenal etiology. Start IV fluids. Encourage p.o. intake. Decrease Eliquis dose to 2.5 mg until creatinine level improves. Recheck BMP. 03/10: Atrial fibrillation is controlled. The patient's hypoxia is improving. Decadron has been initiated. Decrease IV fluids to 75 cc/h. Creatinine level is still worsening. This is likely due to acute tubular necrosis. Ultrasound of the kidneys showing acute medical disease. Avoid any current nephrotoxic medications. Nephrology consultation pending. Transfer to medical floor. 03/11: The patient's creatinine level has been worsening. Acute renal failure likely due to ATN related to coronavirus. Continue gentle hydration and continue to monitor his creatinine level until it plateaus. The lesion has been noted in his left kidney that is measuring 3 cm. Further evaluation of this will be done once his condition is stable. He will require outpatient follow-up with urology. Continue Decadron. 03/12: Acute kidney injury with rising creatinine level. Continue supportive measures of fluids and corticosteroids. Recheck creatinine level in the morning. Check urine analysis to assess his proteinurea
[2020-03-13] MEDS: Sodium Chloride 0.9% 1,000 ML IV SCH (08:05)
[2020-03-13] MEDS: Dexamethasone 4 MG TAB PO SCH (08:07)
[2020-03-13] MEDS: Amlodipine 10 MG TAB PO SCH (08:09)
[2020-03-13] MEDS: Atorvastatin Calcium 40 MG TAB PO SCH (08:09)
[2020-03-13] MEDS: Carvedilol 25 MG TAB PO SCH ×2 (08:09→17:28)
[2020-03-13] MEDS: Apixaban 2.5 MG TAB PO SCH ×2 (08:09→21:12)
[2020-03-13] MEDS: Mometasone 200 MCG/Formoterol 5 MCG 120 PUFF INHALER INH SCH ×2 (08:44→17:30)
[2020-03-13 11:03] LABS: Anion Gap 17 mmol/L (10-20); BUN (Urea Nitrogen) 116 mg/dL (8.9-20.6); Calc. Creatinine Clearance 18 mL/min (70-130); Calcium 7.8 mg/dL (7.8-10.44); Carbon Dioxide 18 mmol/L (22-29); Chloride 103 mmol/L (98-107); Estimated GFR-MDRD 7; Glucose 178 mg/dL (70-105); Potassium 4.3 mmol/L (3.5-5.1); Sodium 134 mmol/L (136-145)
[2020-03-13 13:20] LABS: Actual Bicarbonate (HCO3a) 20.7 mEq/L (22-28); Base Excess (BEa) -6.2 mEq/L (-2.0 to +3.0); CO2 Tension 45.6 mmHg (35.0-45.0); Calcium, Ionized (arterial) 1.17 mmol/L (1.12-1.30); Carboxyhemoglobin (COHb) 1.4 gm% (0.0-3.0); Hemoglobin (Hb) 17.5 g/dL (14.0-18.0); O2 Tension (PaO2), arterial 71.2 mmHg (80.0-100.0); Potassium - ABG Lab 4.07 mmol/L (3.70-5.30); pH, Arterial 7.28 (7.35-7.45)
[2020-03-13 13:23] LABS: Puncture Site RRA
[2020-03-13] MEDS: Lactated Ringer's 1,000 ML IV SCH (18:20)
--- NOTE | 2020-03-13 20:25 | PDOC.HOSPP ---
- Subjective Encounter Date: 03/13/20 - Objective Vital Signs & Weight: Vital Signs (12 hours) Temp Pulse Resp BP Pulse Ox 03/13/20 19:58 97.7 F 88 20 124/74 95 03/13/20 15:45 97.6 F 90 24 H 128/80 94 L 03/13/20 11:25 97.7 F 82 20 108/71 93 L 03/13/20 08:30 97.7 F 84 20 123/88 95 Weight Weight 290 lb Most Recent Monitor Data Heart Rate from ECG 80 NIBP 110/61 NIBP BP-Mean 77 Respiration from ECG 24 SpO2 97 I&O: 03/12/20 03/13/20 03/14/20 06:59 06:59 06:59 Intake Total 2470 2130 990 Output Total 500 550 150 Balance 1970 1580 840 Result Diagrams: 03/12/20 09:30 03/13/20 10:37 Additional Labs: Accuchecks 03/13/20 03/13/20 03/12/20 15:39 05:35 21:06 POC Glucose 164 H 128 H 142 H Hospitalist ROS - Medication Medications: Active Medications Generic Name Dose Route Start Last Admin Trade Name Freq PRN Reason Stop Dose Admin Acetaminophen 650 mg 03/06/20 01:56 03/06/20 11:59 Tylenol PO 650 mg Q4H PRN Administration Headache/Fever/Mild Pain (1-3) Albuterol Sulfate 1 puff 03/06/20 21:09 03/06/20 21:25 Proventil Hfa INH 1 puff Q8H PRN Administration Wheezing Amlodipine Besylate 5 mg 03/11/20 09:00 03/13/20 08:09 Norvasc PO 5 mg DAILY SHANIKA Administration Apixaban 2.5 mg 03/11/20 21:00 03/13/20 08:09 Eliquis PO 2.5 mg BID SHANIKA Administration Atorvastatin Calcium 40 mg 03/07/20 09:00 03/13/20 08:09 Lipitor PO 40 mg DAILY SHANIKA Administration Carvedilol 25 mg 03/06/20 17:00 03/13/20 17:28 Coreg PO 25 mg BID-WM SHANIKA Administration Dexamethasone 6 mg 03/11/20 08:00 03/13/20 08:07 Decadron PO 6 mg QAM-WM SHANIKA Administration Lactated Ringer's 1,000 mls @ 100 mls/hr 03/13/20 17:30 03/13/20 18:20 Lactated Ringer's IV 03/14/20 11:00 1,000 mls .Q10H SHANIKA Administration Mometasone Furoate/Formoterol Fumar 2 puff 03/07/20 06:30 03/13/20 17:30 Dulera 200 Mcg/5 Mcg Inhaler INH 2 puff BID-RT SHANIKA Administration Pantoprazole Sodium 40 mg 03/11/20 09:00 03/13/20 08:09 Protonix PO 40 mg DAILY SHANIKA Administration Sodium Chloride 10 ml 03/06/20 09:00 03/13/20 08:07 Flush - Normal Saline IVF 10 ml Q12HR SHANIKA Administration - Exam General Appearance: awake alert ENT: normocephalic atraumatic Neck: supple Respiratory: normal chest expansion, no tachypnea Gastrointestinal: soft, non-tender, non-distended, normal bowel sounds Neurological: cranial nerve grossly intact, no focal deficits Hosp A/P (1) Pneumonia due to COVID-19 virus Code(s): U07.1 - COVID-19; J12.89 - OTHER VIRAL PNEUMONIA Status: Acute (2) Atrial fibrillation with rapid ventricular response Code(s): I48.91 - UNSPECIFIED ATRIAL FIBRILLATION Status: Acute (3) HTN (hypertension) Code(s): I10 - ESSENTIAL (PRIMARY) HYPERTENSION Status: Acute (4) Acute respiratory failure with hypoxia Code(s): J96.01 - ACUTE RESPIRATORY FAILURE WITH HYPOXIA Status: Acute (5) DM2 (diabetes mellitus, type 2) Status: Acute (6) MESFIN (acute kidney injury) Code(s): N17.9 - ACUTE KIDNEY FAILURE, UNSPECIFIED Status: Acute - Plan 03/07: The patient is still requiring oxygen. Discussed with pulmonology yesterday. The patient would not be a candidate for Rimdazivir at this time because the medication is being reserved for sicker patients due to nationwide shortage. His atrial fibrillation is controlled on diltiazem drip and oral carvedilol. Cardiology planning to switch his diltiazem to oral form today. The patient is on Lovenox for embolic CVA prophylaxis due to elevated chads vasc score. Continue metformin and insulin sliding scale for diabetes. 03/08: The patient is saturating well on room air. Atrial fibrillation is now controlled on oral carvedilol and diltiazem. Diltiazem drip will be weaned off today. We can likely discharge patient tomorrow. Eliquis has been initiated for anticoagulation. 03/09: Acute kidney injury noted today. BUN over creatinine ratio suggesting prerenal etiology. Start IV fluids. Encourage p.o. intake. Decrease Eliquis dose to 2.5 mg until creatinine level improves. Recheck BMP. 03/10: Atrial fibrillation is controlled. The patient's hypoxia is improving. Decadron has been initiated. Decrease IV fluids to 75 cc/h. Creatinine level is still worsening. This is likely due to acute tubular necrosis. Ultrasound of the kidneys showing acute medical disease. Avoid any current nephrotoxic medications. Nephrology consultation pending. Transfer to medical floor. 03/11: The patient's creatinine level has been worsening. Acute renal failure likely due to ATN related to coronavirus. Continue gentle hydration and continue to monitor his creatinine level until it plateaus. The lesion has been noted in his left kidney that is measuring 3 cm. Further evaluation of this will be done once his condition is stable. He will require outpatient follow-up with urology. Continue Decadron. 03/12: Acute kidney injury with rising creatinine level. Continue supportive measures of fluids and corticosteroids. Recheck creatinine level in the morning. Check urine analysis to assess his proteinurea 03/13: Patient was seen and examined. He is becoming more lethargic. His blood gas showing mixed acidosis related to his acute kidney injury and obstructive sleep apnea. He continues to refuse CPAP. His uremia is also worsening which could be contributing to his altered mental status. Nephrology considering hemodialysis. Continue to monitor his volume status, acid-base balance, and electrolytes to monitor for indications for urgent dialysis.
[2020-03-13] MEDS: Sodium Bicarbonate Tab 325 MG TAB PO SCH (21:12)
[2020-03-14] MEDS: Lactated Ringer's 1,000 ML IV SCH (02:10)
[2020-03-14] MEDS: Mometasone 200 MCG/Formoterol 5 MCG 120 PUFF INHALER INH SCH ×2 (05:58→19:31)
[2020-03-14 06:25] LABS: Anion Gap 17 mmol/L (10-20); Calc. Creatinine Clearance 16 mL/min (70-130); Calcium 8.1 mg/dL (7.8-10.44); Carbon Dioxide 22 mmol/L (22-29); Chloride 102 mmol/L (98-107); Estimated GFR-MDRD 6; Glucose 158 mg/dL (70-105); Potassium 4.3 mmol/L (3.5-5.1); Sodium 137 mmol/L (136-145)
[2020-03-14 06:37] LABS: BUN (Urea Nitrogen) 117 mg/dL (8.9-20.6)
[2020-03-14 06:47] LABS: Actual Bicarbonate (HCO3a) 16.6 mEq/L (22-28); Calcium, Ionized (arterial) 1.18 mmol/L (1.12-1.30); Carboxyhemoglobin (COHb) 1.2 gm% (0.0-3.0); Hemoglobin (Hb) 17.1 g/dL (14.0-18.0); O2 Tension (PaO2), arterial 71.7 mmHg (80.0-100.0); Potassium - ABG Lab 4.24 mmol/L (3.70-5.30)
--- NOTE | 2020-03-14 06:48 | PRG ---
DATE OF SERVICE: 03/13/2020 SUBJECTIVE: Patient is seen in the room. He is on airborne isolation due to COVID-19. Patient does not have new complaints. Patient apparently is not using urinal all the time. OBJECTIVE: VITAL SIGNS: Blood pressure 108/80, pulse rate 90 per minute, respiratory rate 24 per minute, and patient is saturating 94% on 2 L. GENERAL: Obese male patient, not in pain or discomfort. HEENT: Mucous membranes are moist, no icterus. CVS: Rhythm regular, heart rate normal, no murmurs. LUNGS: Air entry equal bilaterally, no wheezing. ABDOMEN: Soft, bowel sounds present, no tenderness. EXTREMITIES: No edema, no ulcers. NEUROLOGIC: Patient is awake, following commands. PSYCHIATRIC: Not agitated. LABORATORY DATA: PH 7.28, PCO2 of 45.6, and pO2 of 71.2 on room air. Sodium 134, potassium 4.3, bicarb 18, BUN 116, and creatinine 9.60. Urine output 150 mL. ASSESSMENT AND PLAN: 1. Acute kidney injury on chronic kidney disease, stage 5. Patient is encouraged to use urinal for accurate measurement of urine output. He verbalized understanding. We will change IV fluids to Ringer's lactate. 2. Metabolic acidosis. We will avoid normal saline due to hyperchloremic acidosis. Patient was started on Ringer's lactate. 3.Will evaluate daily for renal replacement therapy Job ID: [id number] [facility]
[2020-03-14 06:49] LABS: Puncture Site RRA; pH, Arterial 7.25 (7.35-7.45)
[2020-03-14] MEDS: Carvedilol 25 MG TAB PO SCH ×2 (08:47→18:50)
[2020-03-14] MEDS: Apixaban 2.5 MG TAB PO SCH ×2 (08:47→22:50)
[2020-03-14] MEDS: Dexamethasone 4 MG TAB PO SCH (08:47)
[2020-03-14] MEDS: Sodium Bicarbonate Tab 325 MG TAB PO SCH (08:49)
[2020-03-14] MEDS: Amlodipine 10 MG TAB PO SCH (08:49)
[2020-03-14] MEDS: Atorvastatin Calcium 40 MG TAB PO SCH (08:49)
[2020-03-14] MEDS ORDERED: Heparin 10,000 UNITS/ 10 ML VIAL ONE (09:59)
[2020-03-14 10:20] LABS: Bilirubin Negative (Negative); Blood, Urine 2+ (Negative); Clarity Turbid (Clear); Glucose, Urine (Dipstick) 500 mg/dL (Negative); Ketone, Urine Negative (Negative); Leukocyte Negative Leu/uL (Negative); Nitrite Negative (Negative); Protein, Urine (Dipstick) Greater than 600 mg/dL (Neg-Trace); Squamous Epithelial 0-3 HPF (0-3); Transitional Epithelial 0-3 HPF (None Seen); Urobilinogen Normal mg/dL (Less than 2); pH, Urine 6.5 (5.0-9.0)
[2020-03-14 10:28] LABS: Bacteria/HPF 1+ HPF (None Seen)
--- NOTE | 2020-03-14 13:17 | PRG ---
DATE OF SERVICE: 03/14/2020 SUBJECTIVE: Patient is seen and examined in the room. Patient was moved to the [place]. There is concern that the patient is confused. This morning, the patient is verbalizing, but unable to recall month or year. Currently, Surgery Team is placing a dialysis catheter. OBJECTIVE: VITAL SIGNS: Blood pressure 101/65, FL 82 per minute, RR 23 per minute, oxygen saturation 95% on 2 L by nasal cannula. GENERAL:Obese male pt, currently not in pain or discomfort. HEENT: Mucous membranes are moist. No icterus. CVS: Rhythm regular, normal rate. No murmurs. LUNGS: Breath sounds are decreased at bases. No wheezing. ABDOMEN: Soft. No tenderness. Bowel sounds present. EXTREMITIES: Minimal pitting edema bilaterally. No ulcers. REINFORCED IRONWORKER: Patient is awake, verbalizing, following commands. Patient is not oriented in place and time. PSYCHIATRIC: Not agitated. LABORATORY DATA: Sodium 137, potassium 4.3, bicarb 22, BUN 117, creatinine 10.8. ASSESSMENT AND PLAN: 1. Acute kidney injury on chronic kidney disease, stage 5 - The patient has altered mental status with oliguria. We will initiate hemodialysis today. Femoral catheter is being placed. Discussed with dialysis nurse; target UF 1 lt as tolerated 2. Metabolic acidosis - resolving. 3. COVID-19 syndrome - Management as per Primary Team. Job ID: [id number] [facility]
[2020-03-14 17:57] LABS: HBSAB Concentration 2.31 mIU/mL; HBSAg Index 0.22 S/CO (0-0.99); Hep B Core Total Ab Non-Reactive (NonReactive); Hep B Core Total Index 0.07 S/CO (0-0.79); Hep B Surf AB Non-Reactive (NonReactive); Hep B Surf Ag Non-Reactive S/CO (NonReactive)
[2020-03-14 18:46] LABS: Hep C IgG Ab EQUIVOCAL (NonReactive); Hep C Index 0.89 S/CO (0-0.79)
[2020-03-14] MEDS: Albuterol 200 PUFF (6.7GM INHALER) INH PRN (18:54)
--- NOTE | 2020-03-14 20:13 | PDOC.HOSPP ---
- Subjective Encounter Date: 03/14/20 Subjective: The patient is confused today. His mental status has been declining over the past 2 days. - Objective Vital Signs & Weight: Vital Signs (12 hours) Pulse Pulse Ox 03/14/20 19:31 79 94 L 03/14/20 08:49 82 Weight Weight 290 lb Most Recent Monitor Data Heart Rate from ECG 80 NIBP 110/61 NIBP BP-Mean 77 Respiration from ECG 24 SpO2 97 I&O: 03/13/20 03/14/20 03/15/20 06:59 06:59 06:59 Intake Total 2130 2440 960 Output Total 550 150 200 Balance 1580 2290 760 Result Diagrams: 03/12/20 09:30 03/14/20 05:50 Additional Labs: Accuchecks 03/14/20 03/14/20 03/14/20 17:05 13:28 06:10 POC Glucose 132 H 149 H 145 H 03/13/20 03/13/20 22:17 21:20 POC Glucose 145 H 132 H Hospitalist ROS - Medication Medications: Active Medications Generic Name Dose Route Start Last Admin Trade Name Freq PRN Reason Stop Dose Admin Acetaminophen 650 mg 03/06/20 01:56 03/06/20 11:59 Tylenol PO 650 mg Q4H PRN Administration Headache/Fever/Mild Pain (1-3) Albuterol Sulfate 1 puff 03/06/20 21:09 03/14/20 18:54 Proventil Hfa INH 1 puff Q8H PRN Administration Wheezing Apixaban 2.5 mg 03/11/20 21:00 03/14/20 08:47 Eliquis PO 2.5 mg BID SHANIKA Administration Atorvastatin Calcium 40 mg 03/07/20 09:00 03/14/20 08:49 Lipitor PO 40 mg DAILY SHANIKA Administration Carvedilol 25 mg 03/06/20 17:00 03/14/20 18:50 Coreg PO 03/14/20 23:59 Not Given BID-WM SHANIKA Dexamethasone 6 mg 03/11/20 08:00 03/14/20 08:47 Decadron PO 6 mg QAM-WM SHANIKA Administration Mometasone Furoate/Formoterol Fumar 2 puff 03/07/20 06:30 03/14/20 19:31 Dulera 200 Mcg/5 Mcg Inhaler INH 2 puff BID-RT SHANIKA Administration Pantoprazole Sodium 40 mg 03/11/20 09:00 03/14/20 08:49 Protonix PO 40 mg DAILY SHANIKA Administration Sodium Chloride 10 ml 03/06/20 09:00 03/14/20 08:50 Flush - Normal Saline IVF 10 ml Q12HR SHANIKA Administration - Exam General Appearance: awake alert Neck: supple Heart: RRR Respiratory: normal chest expansion, no tachypnea Gastrointestinal: soft, non-tender, non-distended, normal bowel sounds Hosp A/P (1) MESFIN (acute kidney injury) Code(s): N17.9 - ACUTE KIDNEY FAILURE, UNSPECIFIED Status: Acute (2) Pneumonia due to COVID-19 virus Code(s): U07.1 - COVID-19; J12.89 - OTHER VIRAL PNEUMONIA Status: Acute (3) Atrial fibrillation with rapid ventricular response Code(s): I48.91 - UNSPECIFIED ATRIAL FIBRILLATION Status: Acute (4) HTN (hypertension) Code(s): I10 - ESSENTIAL (PRIMARY) HYPERTENSION Status: Acute (5) Acute respiratory failure with hypoxia Code(s): J96.01 - ACUTE RESPIRATORY FAILURE WITH HYPOXIA Status: Acute (6) DM2 (diabetes mellitus, type 2) Status: Acute - Plan 03/07: The patient is still requiring oxygen. Discussed with pulmonology yesterday. The patient would not be a candidate for Rimdazivir at this time because the medication is being reserved for sicker patients due to nationwide shortage. His atrial fibrillation is controlled on diltiazem drip and oral carvedilol. Cardiology planning to switch his diltiazem to oral form today. The patient is on Lovenox for embolic CVA prophylaxis due to elevated chads vasc score. Continue metformin and insulin sliding scale for diabetes. 03/08: The patient is saturating well on room air. Atrial fibrillation is now controlled on oral carvedilol and diltiazem. Diltiazem drip will be weaned off today. We can likely discharge patient tomorrow. Eliquis has been initiated for anticoagulation. 03/09: Acute kidney injury noted today. BUN over creatinine ratio suggesting prerenal etiology. Start IV fluids. Encourage p.o. intake. Decrease Eliquis dose to 2.5 mg until creatinine level improves. Recheck BMP. 03/10: Atrial fibrillation is controlled. The patient's hypoxia is improving. Decadron has been initiated. Decrease IV fluids to 75 cc/h. Creatinine level is still worsening. This is likely due to acute tubular necrosis. Ultrasound of the kidneys showing acute medical disease. Avoid any current nephrotoxic medications. Nephrology consultation pending. Transfer to medical floor. 03/11: The patient's creatinine level has been worsening. Acute renal failure likely due to ATN related to coronavirus. Continue gentle hydration and continue to monitor his creatinine level until it plateaus. The lesion has been noted in his left kidney that is measuring 3 cm. Further evaluation of this will be done once his condition is stable. He will require outpatient follow-up with urology. Continue Decadron. 03/12: Acute kidney injury with rising creatinine level. Continue supportive measures of fluids and corticosteroids. Recheck creatinine level in the morning. Check urine analysis to assess his proteinurea 03/13: Patient was seen and examined. He is becoming more lethargic. His blood gas showing mixed acidosis related to his acute kidney injury and obstructive sleep apnea. He continues to refuse CPAP. His uremia is also worsening which could be contributing to his altered mental status. Nephrology considering hemodialysis. Continue to monitor his volume status, acid-base balance, and electrolytes to monitor for indications for urgent dialysis. 03/14: The patient's renal failure is worsening. He is exhibiting signs of uremia and metabolic acidosis. Discussed with nephrology. Plan for emergent hemodialysis today. Continue nocturnal CPAP. Continue dexamethasone.
[2020-03-15 06:22] LABS: Anion Gap 20 mmol/L (10-20); BUN (Urea Nitrogen) 118 mg/dL (8.9-20.6); Calc. Creatinine Clearance 16 mL/min (70-130); Calcium 8.2 mg/dL (7.8-10.44); Carbon Dioxide 17 mmol/L (22-29); Chloride 103 mmol/L (98-107); Estimated GFR-MDRD 6; Glucose 141 mg/dL (70-105); Potassium 4.8 mmol/L (3.5-5.1); Sodium 135 mmol/L (136-145)
--- NOTE | 2020-03-15 08:41 | PDOC.HOSPP ---
- Subjective Encounter Date: 03/15/20 Encounter Time: 13:30 Subjective: Patient still confused. No complaints. - Objective Vital Signs & Weight: Vital Signs (12 hours) Temp Pulse Resp BP Pulse Ox 03/15/20 00:00 98.3 F 75 18 111/68 93 L Weight Weight 290 lb Most Recent Monitor Data Heart Rate from ECG 80 NIBP 110/61 NIBP BP-Mean 77 Respiration from ECG 24 SpO2 97 I&O: 03/14/20 03/15/20 03/16/20 06:59 06:59 06:59 Intake Total 2440 1160 Output Total 150 425 Balance 2290 735 Result Diagrams: 03/15/20 10:24 03/15/20 05:29 Additional Labs: Accuchecks 03/15/20 03/14/20 03/14/20 06:13 17:05 13:28 POC Glucose 134 H 132 H 149 H Hospitalist ROS - Review of Systems ROS unobtainable: due to mental status - Medication Medications: Active Medications Generic Name Dose Route Start Last Admin Trade Name Freq PRN Reason Stop Dose Admin Acetaminophen 650 mg 03/06/20 01:56 03/06/20 11:59 Tylenol PO 650 mg Q4H PRN Administration Headache/Fever/Mild Pain (1-3) Albuterol Sulfate 1 puff 03/06/20 21:09 03/14/20 18:54 Proventil Hfa INH 1 puff Q8H PRN Administration Wheezing Apixaban 2.5 mg 03/11/20 21:00 03/14/20 22:50 Eliquis PO 2.5 mg BID SHANIKA Administration Atorvastatin Calcium 40 mg 03/07/20 09:00 03/14/20 08:49 Lipitor PO 40 mg DAILY SHANIKA Administration Dexamethasone 6 mg 03/11/20 08:00 03/14/20 08:47 Decadron PO 6 mg QAM-WM SHANIKA Administration Mometasone Furoate/Formoterol Fumar 2 puff 03/07/20 06:30 03/14/20 19:31 Dulera 200 Mcg/5 Mcg Inhaler INH 2 puff BID-RT SHANIKA Administration Pantoprazole Sodium 40 mg 03/11/20 09:00 03/14/20 08:49 Protonix PO 40 mg DAILY SHANIKA Administration Sodium Chloride 10 ml 03/06/20 09:00 03/14/20 22:50 Flush - Normal Saline IVF 10 ml Q12HR SHANIKA Administration - Exam General Appearance: NAD, awake alert ENT: moist mucosa Heart: RRR, no murmur, no gallops, no rubs Respiratory: CTAB, no wheezes, no rales, no ronchi Gastrointestinal: soft, non-tender, non-distended, normal bowel sounds Psychiatric: normal affect, normal behavior, oriented to person. negative: oriented to place, oriented to time Hosp A/P (1) Pneumonia due to COVID-19 virus Code(s): U07.1 - COVID-19; J12.89 - OTHER VIRAL PNEUMONIA Status: Acute (2) MESFIN (acute kidney injury) Code(s): N17.9 - ACUTE KIDNEY FAILURE, UNSPECIFIED Status: Acute (3) Acute respiratory failure with hypoxia Code(s): J96.01 - ACUTE RESPIRATORY FAILURE WITH HYPOXIA Status: Acute (4) Atrial fibrillation with rapid ventricular response Code(s): I48.91 - UNSPECIFIED ATRIAL FIBRILLATION Status: Acute (5) DM2 (diabetes mellitus, type 2) Status: Acute (6) HTN (hypertension) Code(s): I10 - ESSENTIAL (PRIMARY) HYPERTENSION Status: Acute - Plan 03/07: The patient is still requiring oxygen. Discussed with pulmonology yesterday. The patient would not be a candidate for Rimdazivir at this time because the medication is being reserved for sicker patients due to nationwide shortage. His atrial fibrillation is controlled on diltiazem drip and oral carvedilol. Cardiology planning to switch his diltiazem to oral form today. The patient is on Lovenox for embolic CVA prophylaxis due to elevated chads vasc score. Continue metformin and insulin sliding scale for diabetes. 03/08: The patient is saturating well on room air. Atrial fibrillation is now controlled on oral carvedilol and diltiazem. Diltiazem drip will be weaned off today. We can likely discharge patient tomorrow. Eliquis has been initiated for anticoagulation. 03/09: Acute kidney injury noted today. BUN over creatinine ratio suggesting prerenal etiology. Start IV fluids. Encourage p.o. intake. Decrease Eliquis dose to 2.5 mg until creatinine level improves. Recheck BMP. 03/10: Atrial fibrillation is controlled. The patient's hypoxia is improving. Decadron has been initiated. Decrease IV fluids to 75 cc/h. Creatinine level is still worsening. This is likely due to acute tubular necrosis. Ultrasound of the kidneys showing acute medical disease. Avoid any current nephrotoxic medications. Nephrology consultation pending. Transfer to medical floor. 03/11: The patient's creatinine level has been worsening. Acute renal failure likely due to ATN related to coronavirus. Continue gentle hydration and continue to monitor his creatinine level until it plateaus. The lesion has been noted in his left kidney that is measuring 3 cm. Further evaluation of this will be done once his condition is stable. He will require outpatient follow-up with urology. Continue Decadron. 03/12: Acute kidney injury with rising creatinine level. Continue supportive measures of fluids and corticosteroids. Recheck creatinine level in the morning. Check urine analysis to assess his proteinurea 03/13: Patient was seen and examined. He is becoming more lethargic. His blood gas showing mixed acidosis related to his acute kidney injury and obstructive sleep apnea. He continues to refuse CPAP. His uremia is also worsening which could be contributing to his altered mental status. Nephrology considering hemodialysis. Continue to monitor his volume status, acid-base balance, and electrolytes to monitor for indications for urgent dialysis. 03/14: The patient's renal failure is worsening. He is exhibiting signs of uremia and metabolic acidosis. Discussed with nephrology. Plan for emergent hemodialysis today. Continue nocturnal CPAP. Continue dexamethasone. 03/15: Patient had trialysis catheter placed and hemodialysis initiated yesterday. Still very confused from uremia. Continue nocturnal CPAP, on 2L NC for oxygenation Continuing anticoagulation Continue dexamethasone day 01/31 Updated family with progress and plan
[2020-03-15] MEDS: Carvedilol 6.25 MG TAB PO SCH ×3 (09:19→17:47)
[2020-03-15] MEDS: Dexamethasone 4 MG TAB PO SCH (09:39)
[2020-03-15] MEDS: Mometasone 200 MCG/Formoterol 5 MCG 120 PUFF INHALER INH SCH ×2 (09:40→18:16)
[2020-03-15] MEDS: Atorvastatin Calcium 40 MG TAB PO SCH (09:40)
[2020-03-15] MEDS: Apixaban 2.5 MG TAB PO SCH ×2 (09:40→21:35)
--- NOTE | 2020-03-15 09:49 | CT ---
ABDOMEN CT WITHOUT CONTRAST PELVIC CT WITHOUT CONTRAST: HISTORY: Positive COVID. Possible renal mass. Acute kidney insufficiency. COMPARISON: None. CORRELATION: Renal ultrasound 03/10/2020. FINDINGS: Abdomen CT: Lung bases:Patchy interstitial and alveolar infiltrates, corresponding to patient's history of COVID. Small right-sided pleural effusion. Heart size: Normal caliber. Trace pericardial fluid. Aorta: Normal caliber. Solid organs: Limited evaluation by the lack of intravenous contrast administration. Grossly no solid organ abnormality. Lymph nodes: No gastrohepatic, retrocrural or periportal lymphadenopathy. Gallbladder: No CT evidence of cholelithiasis or cholecystitis. Mesentery: No mass, free air. There is a small amount of fluid in both paracolic gutters. Upper grey l right lower quadrant lymph nodes may represent focal mesenteric lymphadenitis. There are upper normal aortocaval and periaortic lymph nodes. Kidneys: Bilaterally, no hydronephrosis, nephrolithiasis or perinephric fat stranding. Bilateral uret ers have a normal caliber. No hydroureter, periureteral fat stranding or ureterolithiasis. Irregular echotexture foci in the left kidney is not appreciated on the current CT. There is mild lob ulation of the left renal cortex with isodense attenuation. Alimentary canal: Limited evaluation by the lack of oral contrast. No bowel obstruction. Normal calib er appendix. CT PELVIS: No mass, adenopathy, free air or free fluid. Right-sided femoral vein catheter terminates in the inferior vena cava. Urinary bladder: Unremarkable. Osseous structures: No lytic or blastic lesions. IMPRESSION: 1. No evidence of obstructive uropathy. 2. No CT evidence of a left renal mass. There is isodense lobulation of the midpole of the left kidne y. As a conservative measure, follow-up abdomen MRI can be performed nonemergently. 3. Small right-sided pleural effusion. 4. Lung parenchymal opacities compatible with patient's history of COVID. 5. Nonspecific fluid in the left and right paracolic gutter. Scattered retroperitoneal and mesenteric lymphadenopathy which may be reactive. Transcribed Date/Time: 03/15/2020 12:15 PM
[2020-03-15 11:19] LABS: Hemoglobin 17.1 g/dL (14.0-18.0); Platelet Count 281 thou/uL (130-400)
--- NOTE | 2020-03-15 14:36 | PRG ---
DATE OF SERVICE: 03/15/2020 SUBJECTIVE: The patient is seen and examined at bedside. He is very confused this morning, not able to have a good conversation. OBJECTIVE: GENERAL: This is a morbidly obese male, confused. VITAL SIGNS: Temperature 97.9. Heart Rate 87. Respiratory rate 20. Blood pressure 138/79. HEENT: Atraumatic, normocephalic. NECK: Supple. CVS: S1, S2 heard. Rate and rhythm regular. RESPIRATORY: Clear. GASTROINTESTINAL: Abdomen is soft. MUSCULOSKELETAL: 1+ edema. DERMATOLOGIC: No skin rash. NEUROLOGIC: Confused. LABORATORY DATA: Potassium is 4.8, BUN is 118, creatinine is 10.4. ASSESSMENT AND PLAN: 1. Acute kidney injury on chronic kidney disease stage 3 with altered mentation. Plan to have dialysis. Dialysis nurse notified of dialysis today for 3 hours. 2. Metabolic acidosis. 3. COVID-19 syndrome. 4. Hyponatremia. 5. Morbid obesity. 6. We will have dialysis as tolerated. Dialysis nurse notified. Job ID: [id number]
--- NOTE | 2020-03-16 08:14 | PDOC.HOSPP ---
- Subjective Encounter Date: 03/16/20 Encounter Time: 11:00 Subjective: Patient very sleepy today. Refused breakfast. Refusing to wear CPAP while sleeping. Had his dialysis very late yesterday, not sure if that kept him up and made sleepy this AM - Objective Vital Signs & Weight: Vital Signs (12 hours) Temp Pulse Resp BP Pulse Ox 03/16/20 00:00 98.0 F 81 18 121/80 95 Weight Weight 290 lb Most Recent Monitor Data Heart Rate from ECG 80 NIBP 110/61 NIBP BP-Mean 77 Respiration from ECG 24 SpO2 97 I&O: 03/15/20 03/16/20 03/17/20 06:59 06:59 06:59 Intake Total 1160 520 Output Total 1425 325 Balance -265 195 Result Diagrams: 03/15/20 10:24 03/16/20 09:25 Additional Labs: Accuchecks 03/16/20 03/15/20 03/15/20 06:21 20:00 17:57 POC Glucose 138 H 178 H 156 H 03/15/20 03/14/20 11:45 23:01 POC Glucose 157 H 130 H Hospitalist ROS - Review of Systems ROS unobtainable: due to mental status - Medication Medications: Active Medications Generic Name Dose Route Start Last Admin Trade Name Freq PRN Reason Stop Dose Admin Acetaminophen 650 mg 03/06/20 01:56 03/06/20 11:59 Tylenol PO 650 mg Q4H PRN Administration Headache/Fever/Mild Pain (1-3) Albuterol Sulfate 1 puff 03/06/20 21:09 03/14/20 18:54 Proventil Hfa INH 1 puff Q8H PRN Administration Wheezing Apixaban 2.5 mg 03/11/20 21:00 03/15/20 21:35 Eliquis PO 2.5 mg BID SHANIKA Administration Atorvastatin Calcium 40 mg 03/07/20 09:00 03/15/20 09:40 Lipitor PO 40 mg DAILY SHANIKA Administration Carvedilol 6.25 mg 03/15/20 08:00 03/15/20 17:47 Coreg PO 6.25 mg BID-WM SHANIKA Administration Dexamethasone 6 mg 03/11/20 08:00 03/15/20 09:39 Decadron PO 6 mg QAM-WM SHANIKA Administration Mometasone Furoate/Formoterol Fumar 2 puff 03/07/20 06:30 03/15/20 18:16 Dulera 200 Mcg/5 Mcg Inhaler INH 2 puff BID-RT SHANIKA Administration Pantoprazole Sodium 40 mg 03/11/20 09:00 03/15/20 09:40 Protonix PO 40 mg DAILY SHANIKA Administration Sodium Chloride 10 ml 03/06/20 09:00 03/15/20 21:35 Flush - Normal Saline IVF 10 ml Q12HR SHANIKA Administration - Exam General - other findings: somnolent, arousable and can give name ENT: moist mucosa Heart: RRR, no murmur, no gallops, no rubs Respiratory: CTAB, no wheezes, no rales, no ronchi Respiratory - other findings: snoring loudly while sleeping Gastrointestinal: soft, non-tender, non-distended, normal bowel sounds Gastrointestinal - other findings: obese Psychiatric: oriented to person, oriented to place, somnolent Psychiatric - other findings: remains very confused Hosp A/P (1) Pneumonia due to COVID-19 virus Code(s): U07.1 - COVID-19; J12.89 - OTHER VIRAL PNEUMONIA Status: Acute (2) MESFIN (acute kidney injury) Code(s): N17.9 - ACUTE KIDNEY FAILURE, UNSPECIFIED Status: Acute (3) Acute respiratory failure with hypoxia Code(s): J96.01 - ACUTE RESPIRATORY FAILURE WITH HYPOXIA Status: Acute (4) Atrial fibrillation with rapid ventricular response Code(s): I48.91 - UNSPECIFIED ATRIAL FIBRILLATION Status: Acute (5) DM2 (diabetes mellitus, type 2) Status: Acute (6) HTN (hypertension) Code(s): I10 - ESSENTIAL (PRIMARY) HYPERTENSION Status: Acute - Plan 03/07: The patient is still requiring oxygen. Discussed with pulmonology yesterday. The patient would not be a candidate for Rimdazivir at this time because the medication is being reserved for sicker patients due to nationwide shortage. His atrial fibrillation is controlled on diltiazem drip and oral carvedilol. Cardiology planning to switch his diltiazem to oral form today. The patient is on Lovenox for embolic CVA prophylaxis due to elevated chads vasc score. Continue metformin and insulin sliding scale for diabetes. 03/08: The patient is saturating well on room air. Atrial fibrillation is now controlled on oral carvedilol and diltiazem. Diltiazem drip will be weaned off today. We can likely discharge patient tomorrow. Eliquis has been initiated for anticoagulation. 03/09: Acute kidney injury noted today. BUN over creatinine ratio suggesting prerenal etiology. Start IV fluids. Encourage p.o. intake. Decrease Eliquis dose to 2.5 mg until creatinine level improves. Recheck BMP. 03/10: Atrial fibrillation is controlled. The patient's hypoxia is improving. Decadron has been initiated. Decrease IV fluids to 75 cc/h. Creatinine level is still worsening. This is likely due to acute tubular necrosis. Ultrasound of the kidneys showing acute medical disease. Avoid any current nephrotoxic medications. Nephrology consultation pending. Transfer to medical floor. 03/11: The patient's creatinine level has been worsening. Acute renal failure likely due to ATN related to coronavirus. Continue gentle hydration and continue to monitor his creatinine level until it plateaus. The lesion has been noted in his left kidney that is measuring 3 cm. Further evaluation of this will be done once his condition is stable. He will require outpatient follow-up with urology. Continue Decadron. 03/12: Acute kidney injury with rising creatinine level. Continue supportive measures of fluids and corticosteroids. Recheck creatinine level in the morning. Check urine analysis to assess his proteinurea 03/13: Patient was seen and examined. He is becoming more lethargic. His blood gas showing mixed acidosis related to his acute kidney injury and obstructive sleep apnea. He continues to refuse CPAP. His uremia is also worsening which could be contributing to his altered mental status. Nephrology considering hemodialysis. Continue to monitor his volume status, acid-base balance, and electrolytes to monitor for indications for urgent dialysis. 03/14: The patient's renal failure is worsening. He is exhibiting signs of uremia and metabolic acidosis. Discussed with nephrology. Plan for emergent hemodialysis today. Continue nocturnal CPAP. Continue dexamethasone. 03/15: Patient had trialysis catheter placed and hemodialysis initiated yesterday. Still very confused from uremia. Continue nocturnal CPAP, on 2L NC for oxygenation Continuing anticoagulation Continue dexamethasone day 01/31 Updated family with progress and plan 03/16: Continuing dialysis, O2 sats stable with nocturnal CPAP and 2L NC during the day Remains encephalopathic likely from uremia, will hopefully improve with continued dialysis Very somnolent today so will check an ABG and make sure not retaining too much CO2
[2020-03-16] MEDS: Carvedilol 6.25 MG TAB PO SCH ×2 (08:38→16:59)
[2020-03-16] MEDS: Apixaban 2.5 MG TAB PO SCH ×2 (08:39→21:17)
[2020-03-16] MEDS: Dexamethasone 4 MG TAB PO SCH (08:39)
[2020-03-16] MEDS: Atorvastatin Calcium 40 MG TAB PO SCH (08:39)
[2020-03-16] MEDS ORDERED: Heparin 10,000 UNITS/ 10 ML VIAL ONE ×2 (08:53→09:10)
[2020-03-16] MEDS: Mometasone 200 MCG/Formoterol 5 MCG 120 PUFF INHALER INH SCH (09:49)
[2020-03-16 09:55] LABS: Calcium 8.4 mg/dL (7.8-10.44); Chloride 103 mmol/L (98-107); Potassium 5.5 mmol/L (3.5-5.1); Sodium 136 mmol/L (136-145)
[2020-03-16 09:56] LABS: Glucose 142 mg/dL (70-105)
[2020-03-16 09:57] LABS: Anion Gap 21 mmol/L (10-20); Carbon Dioxide 18 mmol/L (22-29)
[2020-03-16 09:59] LABS: Calc. Creatinine Clearance 16 mL/min (70-130); Estimated GFR-MDRD 6
[2020-03-16 10:00] LABS: BUN (Urea Nitrogen) 115 mg/dL (8.9-20.6)
[2020-03-16 14:31] LABS: Actual Bicarbonate (HCO3a) 24.8 mEq/L (22-28); Base Excess (BEa) -4.3 mEq/L (-2.0 to +3.0); Carboxyhemoglobin (COHb) 1.1 gm% (0.0-3.0); Hemoglobin (Hb) 16.9 g/dL (14.0-18.0); O2 Tension (PaO2), arterial 87.7 mmHg (80.0-100.0)
[2020-03-16 14:38] LABS: CO2 Tension 61.6 mmHg (35.0-45.0); pH, Arterial 7.22 (7.35-7.45)
[2020-03-16 14:40] LABS: Puncture Site RR
--- NOTE | 2020-03-16 16:45 | CON ---
DATE OF CONSULTATION: CONSULTING PHYSICIAN: Francisco Joy MD REASON FOR CONSULTATION: Elevated pCO2. HISTORY OF PRESENT ILLNESS: This patient is a 44-year-old morbidly obese male, who was admitted originally on 03/06/2020, with severe shortness of breath. He was found to have COVID-19 infection. Over the course of the hospitalization, he has developed acute renal failure and now has a creatinine of 10. I am told he has been doing dialysis for the last 2 or 3 days. Today, he was found to be more lethargic. They checked a CO2 level and it was 61. It should also be noted that he has a serum bicarbonate of 18, indicating he has both respiratory and metabolic acidosis. PAST MEDICAL HISTORY: 1. Diabetes mellitus. 2. Hypertension. 3. Obesity. PAST SURGICAL HISTORY: Unremarkable. FAMILY MEDICAL HISTORY: Unremarkable. SOCIAL HISTORY: Nonsmoker. Very occasionally drinks alcohol. ALLERGIES: NONE. MEDICATIONS: These were reviewed in the chart include; 1. Lipitor. 2. Eliquis. 3. Coreg. 4. Decadron. 5. Glucagon. 6. Protonix. 7. Humulin insulin. 8. Dulera. I do not see any narcotics. PHYSICAL EXAMINATION: VITAL SIGNS: Temperature 97.7, pulse 80, respirations 20, O2 saturation 92% on 2.5 L, and blood pressure 130/88. This patient is 5 feet and 5 inches, weight is 290 pounds, and BMI is 48.3. HEENT: Remarkable for class IV Mallampati airway. NECK: No adenopathy or JVD. LUNGS: Clear, but distant. CARDIAC: S1 and S2. Regular without audible murmur. ABDOMEN: Obese, soft, nontender, and nondistended. EXTREMITIES: No clubbing, cyanosis, or edema. LABORATORY DATA: Sodium 156, potassium 5.5, chloride 103, CO2 of 18, BUN 115, creatinine 10.6, and glucose 142. White blood cell count 8.5, hematocrit 53.8, and platelet count 281. IMAGING DATA: Chest x-ray is pending. ASSESSMENT: This patient is presenting with acute hypercapnic respiratory failure. This does not appear to be narcotic induced nor does it appear to be secondary to COVID-19 pneumonia. I would favor this being more due to fluid overload state and some component of sleep apnea/obesity hypoventilation syndrome. RECOMMENDATIONS: 1. He is being transferred to the ICU so that he will wear the BiPAP that he is supposed to. 2. Check chest x-ray. 3. We will follow with you. Job ID: [id number]
--- NOTE | 2020-03-16 17:02 | RAD ---
EXAM: CHEST ONE VIEW: 03/16/20 HISTORY: Elevated CO2. COMPARISON: 04/26/18. FINDINGS: Poor inspiratory effort. Patchy alveolar and ground glass opacity changes are noted bilaterally which certainly could be consistent with atypical pneumonia including COVID 19. Cardiomegaly. Somewhat les s than optimal inspiration. IMPRESSION: Less than optimal inspiratory effort with minimal cardiomegaly and some increased markings bilaterall y, evidence for the possibility of atypical pneumonia including COVID-19. Continued short term follow -up. POS: RRE
--- NOTE | 2020-03-16 18:13 | PRG ---
DATE OF SERVICE: 03/16/2020 SUBJECTIVE: The patient is somnolent. OBJECTIVE: GENERAL: This is an obese male, who is somnolent. VITAL SIGNS: Temperature 97.7. Heart rate 84. Respiratory rate 15. Blood pressure 145/107. HEENT: Atraumatic, normocephalic. Oral mucosa is moist. NECK: Supple. CARDIOVASCULAR: S1, S2 heard. Rate and rhythm regular. RESPIRATORY: Clear to auscultation. GASTROINTESTINAL: Abdomen is soft. MUSCULOSKELETAL: No tenderness. No edema. DERMATOLOGIC: No skin rash. NEUROLOGIC: Somnolent. PSYCHIATRIC: Mood and affect normal. LABORATORY DATA: Potassium is 5.5, BUN is 115, creatinine is 10.6. ASSESSMENT AND PLAN: 1. Acute kidney injury on chronic kidney disease, stage 3 with worsening labs. 2. Hyperkalemia. 3. Acidosis. 4. Morbid obesity. 5. COVID-19 syndrome. 6. Prognosis is guarded. We will continue on dialysis as tolerated. Job ID: [id number]
[2020-03-17] MEDS: Mometasone 200 MCG/Formoterol 5 MCG 120 PUFF INHALER INH SCH ×4 (00:08→20:53)
--- NOTE | 2020-03-17 04:53 | OP ---
DATE OF PROCEDURE: 03/14/2020 CONSULTING PHYSICIAN: Dr. Perales. REASON FOR CONSULTATION: End-stage renal disease/acute kidney injury. PROCEDURE PERFORMED: Placement of right femoral Trialysis hemodialysis catheter. ANESTHESIA: 1% lidocaine. INDICATIONS: The patient is a morbidly obese 44-year-old black male. He is 5 feet 5 inches tall and weighs almost 300 pounds. He has been admitted to the hospital as he is COVID-19 positive. While here in the hospital, he has developed progressive renal failure. His creatinine has gone up from 1.1 up to 10.8 today over the week that he has been in the hospital. I am consulted for placement of hemodialysis catheter for urgent hemodialysis. DESCRIPTION OF PROCEDURE: Informed consent was obtained from the patient. He was laid supine on his bed in the medical floor. Appropriate PPE was utilized secondary to his coronavirus status. Left groin was trimmed of hair, prepped with ChloraPrep, and draped in sterile fashion. Cleansing his groin required extra work secondary to his morbid obesity. The ultrasound was utilized to identify the right femoral vein. Local anesthetic was infiltrated, and large-gauge needle was passed to the femoral vein on the first pass. Guidewire was passed through the needle, needle was removed, skin was incised, tract was dilated, and the Trialysis hemodialysis catheter was advanced over the wire uneventfully. All three lumens were aspirated of blood freely and was flushed with initially saline and subsequently heparinized saline. Catheter was secured at skin exit site with 3-0 silk suture. Sterile occlusive dressing was applied. The patient tolerated the procedure well and was cleared for use of the catheter for hemodialysis. Job ID: [id number]
[2020-03-17 04:58] LABS: Anion Gap 18 mmol/L (10-20); BUN (Urea Nitrogen) 81 mg/dL (8.9-20.6); Calc. Creatinine Clearance 19 mL/min (70-130); Calcium 8.4 mg/dL (7.8-10.44); Carbon Dioxide 25 mmol/L (22-29); Chloride 100 mmol/L (98-107); Estimated GFR-MDRD 8; Glucose 128 mg/dL (70-105); Potassium 4.5 mmol/L (3.5-5.1); Sodium 138 mmol/L (136-145)
[2020-03-17] MEDS: Carvedilol 6.25 MG TAB PO SCH ×2 (09:51→17:14)
[2020-03-17] MEDS: Atorvastatin Calcium 40 MG TAB PO SCH (09:51)
[2020-03-17] MEDS: Dexamethasone 4 MG TAB PO SCH (09:53)
[2020-03-17] MEDS: Apixaban 2.5 MG TAB PO SCH ×2 (09:55→20:53)
[2020-03-17] MEDS ORDERED: Heparin 10,000 UNITS/ 10 ML VIAL ONE (10:08)
--- NOTE | 2020-03-17 11:20 | PRG ---
DATE OF SERVICE: 03/17/2020 SUBJECTIVE: The patient is doing reasonably well. He was moved from ICU to [facility]. He is more awake and talkative today. OBJECTIVE: VITAL SIGNS: Temperature 98.4, pulse 115, and blood pressure 141/102. HEENT: Unremarkable. NECK: No adenopathy or JVD. LUNGS: Clear. CARDIAC: S1 and S2. Regular. ABDOMEN: Obese, soft, and nontender. EXTREMITIES: No edema. LABORATORY DATA: Sodium 130, potassium 4.5, chloride 100, CO2 of 25, BUN 81, creatinine 9.1, and glucose 128. ASSESSMENT: 1. Rule out COVID-19 - results still pending. 2. Obstructive sleep apnea/obesity hypoventilation syndrome. 3. Morbid obesity. 4. Acute on chronic renal failure. PLAN: 1. Continue BiPAP at night. 2. Dialysis. 3. Await COVID-19 result. 4. If COVID-19 negative, suggest discontinuing dexamethasone. Job ID: [id number]
--- NOTE | 2020-03-17 14:50 | PDOC.HOSPP ---
- Subjective Encounter Date: 03/17/20 Encounter Time: 11:00 Subjective: Patient much more alert and oriented this morning. Feels depressed that he is so weak and not able to handle his bills and things while stuck in her. His sister is offering to help him with that. - Objective Vital Signs & Weight: Vital Signs (12 hours) Temp Pulse Resp Pulse Ox 03/17/20 12:00 97.7 F 03/17/20 09:50 97.4 F L 03/17/20 09:30 96 03/17/20 08:31 92 20 94 L 03/17/20 04:00 98.4 F Weight Admit Weight 278 lb Weight 290 lb Most Recent Monitor Data Heart Rate from ECG 102 NIBP 134/94 NIBP BP-Mean 107 Respiration from ECG 22 SpO2 92 I&O: 03/16/20 03/17/20 03/18/20 06:59 06:59 06:59 Intake Total 520 60 Output Total 325 0 Balance 195 60 Result Diagrams: 03/15/20 10:24 03/17/20 04:30 Additional Labs: Accuchecks 03/17/20 03/16/20 06:44 21:27 POC Glucose 125 H 117 H Hospitalist ROS - Review of Systems Constitutional: denies: fever, chills Respiratory: denies: cough, shortness of breath Cardiovascular: denies: chest pain, palpitations, orthopnea Gastrointestinal: denies: nausea, vomiting, abdominal pain - Medication Medications: Active Medications Generic Name Dose Route Start Last Admin Trade Name Freq PRN Reason Stop Dose Admin Acetaminophen 650 mg 03/06/20 01:56 03/06/20 11:59 Tylenol PO 650 mg Q4H PRN Administration Headache/Fever/Mild Pain (1-3) Albuterol Sulfate 1 puff 03/06/20 21:09 03/14/20 18:54 Proventil Hfa INH 1 puff Q8H PRN Administration Wheezing Apixaban 2.5 mg 03/11/20 21:00 03/17/20 09:55 Eliquis PO 2.5 mg BID SHANIKA Administration Atorvastatin Calcium 40 mg 03/07/20 09:00 03/17/20 09:51 Lipitor PO 40 mg DAILY SHANIKA Administration Carvedilol 6.25 mg 03/15/20 08:00 03/17/20 09:51 Coreg PO 6.25 mg BID-WM SHANIKA Administration Dexamethasone 6 mg 03/11/20 08:00 03/17/20 09:53 Decadron PO 6 mg QAM-WM SHANIKA Administration Mometasone Furoate/Formoterol Fumar 2 puff 03/07/20 06:30 03/17/20 09:50 Dulera 200 Mcg/5 Mcg Inhaler INH 2 puff BID-RT SHANIKA Administration Pantoprazole Sodium 40 mg 03/11/20 09:00 03/17/20 09:52 Protonix PO 40 mg DAILY SHANIKA Administration Sodium Chloride 10 ml 03/06/20 09:00 03/17/20 09:52 Flush - Normal Saline IVF 10 ml Q12HR SHANIKA Administration - Exam General Appearance: NAD, awake alert ENT: moist mucosa Heart: RRR, no murmur, no gallops, no rubs Respiratory: CTAB, no wheezes, no rales, no ronchi Gastrointestinal: soft, non-tender, non-distended, normal bowel sounds Psychiatric: normal affect, normal behavior, A&O x 3 Hosp A/P (1) Pneumonia due to COVID-19 virus Code(s): U07.1 - COVID-19; J12.89 - OTHER VIRAL PNEUMONIA Status: Acute (2) MESFIN (acute kidney injury) Code(s): N17.9 - ACUTE KIDNEY FAILURE, UNSPECIFIED Status: Acute (3) Acute respiratory failure with hypoxia Code(s): J96.01 - ACUTE RESPIRATORY FAILURE WITH HYPOXIA Status: Acute (4) Atrial fibrillation with rapid ventricular response Code(s): I48.91 - UNSPECIFIED ATRIAL FIBRILLATION Status: Acute (5) DM2 (diabetes mellitus, type 2) Status: Acute (6) HTN (hypertension) Code(s): I10 - ESSENTIAL (PRIMARY) HYPERTENSION Status: Acute - Plan 03/07: The patient is still requiring oxygen. Discussed with pulmonology yesterday. The patient would not be a candidate for Rimdazivir at this time because the medication is being reserved for sicker patients due to nationwide shortage. His atrial fibrillation is controlled on diltiazem drip and oral carvedilol. Cardiology planning to switch his diltiazem to oral form today. The patient is on Lovenox for embolic CVA prophylaxis due to elevated chads vasc score. Continue metformin and insulin sliding scale for diabetes. 03/08: The patient is saturating well on room air. Atrial fibrillation is now controlled on oral carvedilol and diltiazem. Diltiazem drip will be weaned off today. We can likely discharge patient tomorrow. Eliquis has been initiated for anticoagulation. 03/09: Acute kidney injury noted today. BUN over creatinine ratio suggesting prerenal etiology. Start IV fluids. Encourage p.o. intake. Decrease Eliquis dose to 2.5 mg until creatinine level improves. Recheck BMP. 03/10: Atrial fibrillation is controlled. The patient's hypoxia is improving. Decadron has been initiated. Decrease IV fluids to 75 cc/h. Creatinine level is still worsening. This is likely due to acute tubular necrosis. Ultrasound of the kidneys showing acute medical disease. Avoid any current nephrotoxic medications. Nephrology consultation pending. Transfer to medical floor. 03/11: The patient's creatinine level has been worsening. Acute renal failure likely due to ATN related to coronavirus. Continue gentle hydration and continue to monitor his creatinine level until it plateaus. The lesion has been noted in his left kidney that is measuring 3 cm. Further evaluation of this will be done once his condition is stable. He will require outpatient follow-up with urology. Continue Decadron. 03/12: Acute kidney injury with rising creatinine level. Continue supportive measures of fluids and corticosteroids. Recheck creatinine level in the morning. Check urine analysis to assess his proteinurea 03/13: Patient was seen and examined. He is becoming more lethargic. His blood gas showing mixed acidosis related to his acute kidney injury and obstructive sleep apnea. He continues to refuse CPAP. His uremia is also worsening which could be contributing to his altered mental status. Nephrology considering hemodialysis. Continue to monitor his volume status, acid-base balance, and electrolytes to monitor for indications for urgent dialysis. 03/14: The patient's renal failure is worsening. He is exhibiting signs of uremia and metabolic acidosis. Discussed with nephrology. Plan for emergent hemodialysis today. Continue nocturnal CPAP. Continue dexamethasone. 03/15: Patient had trialysis catheter placed and hemodialysis initiated yesterday. Still very confused from uremia. Continue nocturnal CPAP, on 2L NC for oxygenation Continuing anticoagulation Continue dexamethasone day 01/31 Updated family with progress and plan 03/16: Continuing dialysis, O2 sats stable with nocturnal CPAP and 2L NC during the day Remains encephalopathic likely from uremia, will hopefully improve with continued dialysis Very somnolent today so will check an ABG and make sure not retaining too much CO2 03/17: Patient markedly better today and encephalopathy clearing. Doing well on just nasal cannula right now. Continuing dialysis for ATN and volume overload. Repeat Covid-[address] Tomlinson, will stop dexamethasone if negative. Encouraged patient to wear CPAP whenever sleeping.
--- NOTE | 2020-03-17 16:09 | PRG ---
DATE OF SERVICE: 03/17/2020 SUBJECTIVE: Patient was seen and examined at bedside and overnight events noted. Patient denies any shortness of breath or chest pain or palpitation. No history of nausea or vomiting or diarrhea or fever or chills or cramps. OBJECTIVE: General: This is an obese male, in no apparent distress. Vital Signs: Temperature 97.7. Heart rate 107. Blood pressure 108/81. HEENT: Atraumatic, normocephalic. Oral mucosa is moist. Neck: Supple. Cardiovascular: S1, S2 heard. Rate and rhythm regular. Respiratory: Clear to auscultation. Gastrointestinal: Abdomen is soft. Musculoskeletal: No tenderness. No edema. Dermatologic: No skin rash. Neurologic: Alert and awake and oriented x3. No focal neurologic deficits. Moving all the extremities. Psychiatric: Mood and affect normal. LABORATORY DATA: Potassium 4.5, BUN is 81, creatinine is 9.1. ASSESSMENT AND PLAN: 1. Acute kidney injury on chronic kidney disease, stage 3, dialysis dependent. Got good clearance with dialysis yesterday. Plan is to have another session today. The patient is clinically feeling much better. 2. Hyperkalemia, better. 3. Metabolic acidosis. 4. Morbid obesity. 5. Hyponatremia. 6. COVID-19 infection. 7. Clinically better seems to be better. Labs are better. We will have another dialysis today and we will continue close monitoring. Job ID: [id number]
[2020-03-17] MEDS: HumaLOG 300 UNITS/3 ML VIAL SC PRN (17:14)
[2020-03-18 04:01] LABS: Hemoglobin 16.8 g/dL (14.0-18.0); Platelet Count 307 thou/uL (130-400)
[2020-03-18 04:21] LABS: Anion Gap 16 mmol/L (10-20); BUN (Urea Nitrogen) 72 mg/dL (8.9-20.6); Calc. Creatinine Clearance 20 mL/min (70-130); Carbon Dioxide 25 mmol/L (22-29); Chloride 99 mmol/L (98-107); Estimated GFR-MDRD 8; Glucose 171 mg/dL (70-105); Potassium 4.5 mmol/L (3.5-5.1); Sodium 135 mmol/L (136-145)
[2020-03-18] MEDS: Carvedilol 6.25 MG TAB PO SCH ×2 (09:32→17:24)
[2020-03-18] MEDS: Dexamethasone 4 MG TAB PO SCH (09:32)
[2020-03-18] MEDS: Apixaban 2.5 MG TAB PO SCH ×2 (09:33→20:33)
--- NOTE | 2020-03-18 10:33 | PRG ---
DATE OF SERVICE: 03/18/2020 SUBJECTIVE: Mr. Ramirez is much more talkative today than he was 2 days ago. He had no acute complaints this morning. OBJECTIVE: VITAL SIGNS: His temperature is 97.9, pulse 93, blood pressure 117/77, O2 saturations 96% on nasal cannula. HEENT: Unremarkable. NECK: No adenopathy or JVD. CHEST: Clear. CARDIAC: S1 and S2. Regular. ABDOMEN: Soft. EXTREMITIES: No edema. LABORATORY DATA: Hemoglobin 16.8, hematocrit 53.2, and platelet count 307. Sodium 135, potassium 4.5, chloride 99, CO2 of 25, BUN 72, creatinine 8.5, glucose 171. ASSESSMENT: 1. COVID-19 infection. 2. Acute renal failure. 3. Obesity hypoventilation syndrome. 4. Morbid obesity. PLAN: 1. His COVID-19 test was positive from [facility]. I found the records of that today. 2. Continue BiPAP at night for sleep apnea. 3. Continue dialysis. 4. I would go ahead and start tapering his steroid dose as he does not have much in the way of pulmonary issues from the COVID infection this time. 5. We will retest for COVID to see if he is still infectious. Job ID: [id number]
[2020-03-18] MEDS: Mometasone 200 MCG/Formoterol 5 MCG 120 PUFF INHALER INH SCH ×2 (11:25→20:59)
[2020-03-18] MEDS: Atorvastatin Calcium 40 MG TAB PO SCH (11:26)
--- NOTE | 2020-03-18 12:15 | PRG ---
DATE OF SERVICE: 03/18/2020 SUBJECTIVE: Patient was seen and examined at bedside and overnight events noted. Patient denies any shortness of breath or chest pain or palpitation. No history of nausea or vomiting or diarrhea or fever or chills or cramps. OBJECTIVE: GENERAL: This is an obese male, in no acute distress. VITAL SIGNS: Temperature 97.9. Heart rate . Respiratory rate 18. Blood pressure 117/77. HEENT: Atraumatic, normocephalic. Oral mucosa is moist NECK: Supple. CARDIOVASCULAR: S1, S2 heard. Rate and rhythm regular. RESPIRATORY: Clear to auscultation. GASTROINTESTINAL: Abdomen is soft. MUSCULOSKELETAL: No tenderness. No edema. DERMATOLOGIC: No skin rash. NEUROLOGIC: Alert and awake and oriented X3. No focal neurologic deficits. Moving all the extremities. PSYCHIATRIC: Mood and affect normal. LABORATORY DATA: Potassium is 4.5, BUN is 72, creatinine is 8.4. ASSESSMENT AND PLAN: 1. Acute kidney injury on chronic kidney stage 3, dialysis dependent. The patient is much better. 2. Hyperkalemia. 3. Acidosis. 4. Hyponatremia. 5. Coronavirus disease-19 infection. Plan to continue on dialysis as tolerated, no dialysis today. We will plan for tomorrow. Job ID: [id number]
--- NOTE | 2020-03-18 13:04 | PDOC.HOSPP ---
- Subjective Encounter Date: 03/18/20 Encounter Time: 13:00 Subjective: Reviewed labs, meds, progress tests, HD, retest for COVID. prior test at [facility] ER +ve. sats 95-100%. talk to RN. - Objective Vital Signs & Weight: Vital Signs (12 hours) Temp Pulse Ox 03/18/20 09:26 96 03/18/20 04:00 97.9 F Weight Admit Weight 278 lb Weight 290 lb Most Recent Monitor Data Heart Rate from ECG 93 NIBP 117/77 NIBP BP-Mean 90 Respiration from ECG 3 SpO2 96 I&O: 03/17/20 03/18/20 03/19/20 06:59 06:59 06:59 Intake Total 60 240 Output Total 0 800 Balance 60 -560 Result Diagrams: 03/18/20 03:49 03/18/20 03:49 Additional Labs: Accuchecks 03/18/20 03/17/20 03/17/20 06:57 21:07 17:15 POC Glucose 139 H 160 H 202 H 03/17/20 12:07 POC Glucose 158 H Hospitalist ROS - Medication Medications: Active Medications Generic Name Dose Route Start Last Admin Trade Name Freq PRN Reason Stop Dose Admin Acetaminophen 650 mg 03/06/20 01:56 03/06/20 11:59 Tylenol PO 650 mg Q4H PRN Administration Headache/Fever/Mild Pain (1-3) Albuterol Sulfate 1 puff 03/06/20 21:09 03/14/20 18:54 Proventil Hfa INH 1 puff Q8H PRN Administration Wheezing Apixaban 2.5 mg 03/11/20 21:00 03/18/20 09:33 Eliquis PO 2.5 mg BID SHANIKA Administration Atorvastatin Calcium 40 mg 03/07/20 09:00 03/18/20 11:26 Lipitor PO 40 mg DAILY SHANIKA Administration Carvedilol 6.25 mg 03/15/20 08:00 03/18/20 09:32 Coreg PO 6.25 mg BID-WM SHANIKA Administration Insulin Human Lispro 0 units 03/06/20 02:05 03/17/20 17:14 Humalog SC 3 unit .MILD SLIDING SCALE PRN Administration Mild Correctional Scale Mometasone Furoate/Formoterol Fumar 2 puff 03/07/20 06:30 03/18/20 11:25 Dulera 200 Mcg/5 Mcg Inhaler INH 2 puff BID-RT SHANIKA Administration Pantoprazole Sodium 40 mg 03/11/20 09:00 03/18/20 09:32 Protonix PO 40 mg DAILY SHANIKA Administration Sodium Chloride 10 ml 03/06/20 09:00 03/18/20 09:33 Flush - Normal Saline IVF 10 ml Q12HR SHANIKA Administration Hosp A/P - Plan (1) Pneumonia due to COVID-19 virus Code(s): U07.1 - COVID-19; J12.89 - OTHER VIRAL PNEUMONIA Status: Acute (2) MESFIN (acute kidney injury) Code(s): N17.9 - ACUTE KIDNEY FAILURE, UNSPECIFIED Status: Acute (3) Acute respiratory failure with hypoxia Code(s): J96.01 - ACUTE RESPIRATORY FAILURE WITH HYPOXIA Status: Acute (4) Atrial fibrillation with rapid ventricular response Code(s): I48.91 - UNSPECIFIED ATRIAL FIBRILLATION Status: Acute (5) DM2 (diabetes mellitus, type 2) Status: Acute (6) HTN (hypertension) Code(s): I10 - ESSENTIAL (PRIMARY) HYPERTENSION Status: Acute - Plan 25th COVID PNA bipap at night tapering steroid dose. prior test at [facility] ER +ve. retesting for COVID. afib -rate cont'd w..coreg--puse in , inc'd coreg dose slightly -AC w melecio.
[2020-03-19] MEDS: Carvedilol 6.25 MG TAB PO SCH ×2 (08:08→18:11)
[2020-03-19] MEDS: Dexamethasone 4 MG TAB PO SCH (08:08)
[2020-03-19] MEDS: Apixaban 2.5 MG TAB PO SCH ×2 (08:09→22:19)
[2020-03-19] MEDS: Albuterol 200 PUFF (6.7GM INHALER) INH PRN (08:11)
[2020-03-19 09:05] LABS: Hemoglobin 16.6 g/dL (14.0-18.0); Mean Corpuscular HGB CONC 31.7 g/dL (32.0-36.0); Mean Corpuscular Hemoglobin 28.2 pg (27.0-31.0); Mean Corpuscular Volume 89.1 fL (78.0-98.0); Platelet Count 334 thou/uL (130-400); RBC Distribution Width 17.3 % (11.5-14.5); Red Blood Cell (RBC) Count 5.89 mill/uL (4.70-6.10); White Blood Cell (WBC) Count 13.3 thou/uL (4.8-10.8)
[2020-03-19 09:22] LABS: Anisocytosis SLIGHT = 6-15 cells (100X) (0-5/hpf); Burr Cells SLIGHT = 2-5 cells (100X) (0-1/hpf); Eosinophils 1 % (0-10); Large Platelets SLIGHT; Lymphocytes 1 % (21-51); MDiff Complete? YES; Monocytes 10 % (0-10); Neutrophil 87 % (42-75); Platelet Morphology Comment Appears Adequate; Reactive Lymphocytes 1 % (0-10)
[2020-03-19 09:43] LABS: Anion Gap 18 mmol/L (10-20); BUN (Urea Nitrogen) 102 mg/dL (8.9-20.6); Calc. Creatinine Clearance 17 mL/min (70-130); Calcium 8.3 mg/dL (7.8-10.44); Carbon Dioxide 24 mmol/L (22-29); Chloride 98 mmol/L (98-107); Estimated GFR-MDRD 7; Glucose 169 mg/dL (70-105); Potassium 4.4 mmol/L (3.5-5.1); Sodium 136 mmol/L (136-145)
--- NOTE | 2020-03-19 09:51 | PRG ---
DATE OF SERVICE: 03/19/2020 SUBJECTIVE: The patient is doing well. He has no acute complaints. Currently undergoing dialysis. OBJECTIVE: VITAL SIGNS: His temperature is 97.7, pulse 96, blood pressure 119/93, O2 saturation 96%. HEENT: Unremarkable. NECK: No adenopathy or JVD. LUNGS: Clear. Wearing no oxygen. CARDIAC: S1 and S2 regular. ABDOMEN: Soft. EXTREMITIES: No edema. LABORATORY DATA: White blood cell count 13, hematocrit 52, platelet count 334. No chemistry was done today. ASSESSMENT: 1. COVID-19 infection. 2. Acute renal failure. 3. Obesity hypoventilation syndrome. 4. Morbid obesity. PLAN: 1. This patient can be transferred out to the medical floor. I would recommend continuing BiPAP at night for YUSRA. 2. When he is discharged, he will need an eventual sleep study. 3. Test to see if he still has the virus was performed yesterday, that should come back today or tomorrow. 4. No further pulmonary recommendations will be available as needed. Job ID: [id number]
[2020-03-19] MEDS ORDERED: Heparin 10,000 UNITS/ 10 ML VIAL ONE (09:52)
[2020-03-19] MEDS: Mometasone 200 MCG/Formoterol 5 MCG 120 PUFF INHALER INH SCH ×2 (11:35→22:19)
[2020-03-19] MEDS: Atorvastatin Calcium 40 MG TAB PO SCH ×2 (11:35→22:19)
[2020-03-19 12:12] LABS: SARS-CoV-2 MS2 Positive; SARS-CoV-2 N Gene Positive; SARS-CoV-2 S Gene Positive; SARS-CoV-2 orf1ab Positive
--- NOTE | 2020-03-19 12:19 | PRG ---
DATE OF SERVICE: 03/19/2020 SUBJECTIVE: Patient was seen and examined at bedside and overnight events noted. Patient denies any shortness of breath or chest pain or palpitation. No history of nausea or vomiting or diarrhea or fever or chills or cramps. OBJECTIVE: GENERAL: This is a morbidly obese male, in no apparent distress. VITAL SIGNS: Temperature 97.7. Heart Rate 90. Respiratory rate 18. Blood pressure HEENT: Atraumatic, normocephalic. Oral mucosa is moist. NECK: Supple. CARDIOVASCULAR: S1, S2 heard. Rate and rhythm regular. RESPIRATORY: Clear to auscultation. GASTROINTESTINAL: Abdomen is soft. MUSCULOSKELETAL: No tenderness. No edema. DERMATOLOGIC: No skin rash. NEUROLOGIC: Alert and awake and oriented x3. No focal neurologic deficits. Moving all the extremities. PSYCHIATRIC: Mood and affect normal. LABORATORY DATA: Potassium is 4.4, BUN is 102, creatinine is 10.3. ASSESSMENT AND PLAN: 1. Acute kidney injury on chronic kidney disease, dialysis dependent. Clinically, slightly better, but still BUN is going up. We will have another session of dialysis today, might need tomorrow too. The patient is not able to have more than 3 hours of dialysis due to COVID-19 infection and also to reduce . 2. Hyperkalemia. 3. Acidosis. 4. Hyponatremia. 5. COVID-19 infection. We will continue on dialysis. The patient remains dialysis dependent. Avoid nephrotoxins. Job ID: [id number]
--- NOTE | 2020-03-19 14:18 | PDOC.HOSPP ---
- Subjective Encounter Date: 03/19/20 Encounter Time: 12:20 Subjective: pt ok to be transferred to the floor, repeat COVID test came back +ve. - Objective Vital Signs & Weight: Vital Signs (12 hours) Temp Pulse Ox 03/19/20 08:00 98 03/19/20 04:00 97.7 F Weight Admit Weight 278 lb Weight 290 lb Most Recent Monitor Data Heart Rate from ECG 96 NIBP 119/93 NIBP BP-Mean 101 Respiration from ECG 18 SpO2 96 I&O: 03/18/20 03/19/20 03/20/20 06:59 06:59 06:59 Intake Total 240 1190 Output Total 800 Balance -560 1190 Result Diagrams: 03/19/20 08:46 03/19/20 08:46 Additional Labs: Accuchecks 03/19/20 03/18/20 06:03 20:41 POC Glucose 146 H 161 H Hospitalist ROS - Medication Medications: Active Medications Generic Name Dose Route Start Last Admin Trade Name Freq PRN Reason Stop Dose Admin Acetaminophen 650 mg 03/06/20 01:56 03/06/20 11:59 Tylenol PO 650 mg Q4H PRN Administration Headache/Fever/Mild Pain (1-3) Albuterol Sulfate 1 puff 03/06/20 21:09 03/19/20 08:11 Proventil Hfa INH 1 puff Q8H PRN Administration Wheezing Apixaban 2.5 mg 03/11/20 21:00 03/19/20 08:09 Eliquis PO 2.5 mg BID SHANIKA Administration Carvedilol 12.5 mg 03/18/20 17:00 03/19/20 08:08 Coreg PO 12.5 mg BID-WM SHANIKA Administration Dexamethasone 2 mg 03/18/20 10:16 03/19/20 08:08 Decadron PO 2 mg QAM-WM SHANIKA Administration Insulin Human Lispro 0 units 03/06/20 02:05 03/17/20 17:14 Humalog SC 3 unit .MILD SLIDING SCALE PRN Administration Mild Correctional Scale Mometasone Furoate/Formoterol Fumar 2 puff 03/07/20 06:30 03/19/20 11:35 Dulera 200 Mcg/5 Mcg Inhaler INH Not Given BID-RT SHANIKA Pantoprazole Sodium 40 mg 03/11/20 09:00 03/19/20 08:08 Protonix PO 40 mg DAILY SHANIKA Administration Sodium Chloride 10 ml 03/06/20 09:00 03/19/20 08:09 Flush - Normal Saline IVF 10 ml Q12HR SHANIKA Administration Hosp A/P - Plan (1) Pneumonia due to COVID-19 virus Code(s): U07.1 - COVID-19; J12.89 - OTHER VIRAL PNEUMONIA Status: Acute (2) GAMALIEL (acute kidney injury) Code(s): N17.9 - ACUTE KIDNEY FAILURE, UNSPECIFIED Status: Acute (3) Acute respiratory failure with hypoxia Code(s): J96.01 - ACUTE RESPIRATORY FAILURE WITH HYPOXIA Status: Acute (4) Atrial fibrillation with rapid ventricular response Code(s): I48.91 - UNSPECIFIED ATRIAL FIBRILLATION Status: Acute (5) DM2 (diabetes mellitus, type 2) Status: Acute (6) HTN (hypertension) Code(s): I10 - ESSENTIAL (PRIMARY) HYPERTENSION Status: Acute - Plan COVID PNA--repeat test of 25th - came back +ve. bipap at night while on the floor tapering steroid dose. ------> now on decadron 2 mg daily prior test at [facility] ER +ve. ----repeat test of 25th - came back +ve. Afib -rate cont'd w..coreg--puse in , inc'd coreg dose slightly -AC w eliquis. Gamaliel/ATN --TRANSIENT DIALYSIS turned out to be likely cw as m/w/f schedule. Needs outpt sleep study.
[2020-03-20] MEDS: Apixaban 2.5 MG TAB PO SCH ×2 (08:32→21:15)
[2020-03-20] MEDS: Dexamethasone 4 MG TAB PO SCH (08:33)
[2020-03-20] MEDS: Carvedilol 6.25 MG TAB PO SCH ×2 (08:33→18:20)
[2020-03-20] MEDS ORDERED: Heparin 10,000 UNITS/ 10 ML VIAL ONE (09:44)
[2020-03-20] MEDS: Mometasone 200 MCG/Formoterol 5 MCG 120 PUFF INHALER INH SCH ×2 (12:10→18:31)
--- NOTE | 2020-03-20 13:01 | PRG ---
DATE OF SERVICE: 03/20/2020 SUBJECTIVE: The patient is on COVID isolation. OBJECTIVE: VITAL SIGNS: Temperature 97.7, pulse 87, respiratory rate 18, blood pressure . LABORATORY DATA: Potassium 4.4, BUN is 102, creatinine is 10.3 from yesterday. No labs today. ASSESSMENT AND PLAN: 1. Acute kidney injury on chronic kidney disease, dialysis dependent. We will have dialysis today. Recheck labs. 2. Hyperkalemia. 3. Acidosis. 4. Hyponatremia. 5. COVID-19 infection. Plan to have dialysis today. Job ID: [id number]
--- NOTE | 2020-03-20 14:54 | PDOC.HOSPP ---
- Subjective Encounter Date: 03/20/20 Encounter Time: 11:50 Subjective: pt doing well, no hypoxia, ambulating inside the room without SOB. will update his sister. HD today. - Objective Vital Signs & Weight: Vital Signs (12 hours) Temp Pulse Resp BP Pulse Ox 03/20/20 12:55 155/83 H 03/20/20 12:00 97.7 F 87 18 147/120 H 93 L 03/20/20 08:44 97.4 F L 92 18 130/90 92 L 03/20/20 08:30 92 L 03/20/20 04:36 97.9 F 82 18 132/85 92 L Weight Admit Weight 278 lb Weight 290 lb Most Recent Monitor Data Heart Rate from ECG 106 NIBP 134/112 NIBP BP-Mean 119 Respiration from ECG 21 SpO2 95 I&O: 03/19/20 03/20/20 03/21/20 06:59 06:59 06:59 Intake Total 1190 100 Balance 1190 100 Result Diagrams: 03/19/20 08:46 03/19/20 08:46 Additional Labs: Accuchecks 03/20/20 03/20/20 03/19/20 11:21 04:34 21:58 POC Glucose 166 H 126 H 208 H Hospitalist ROS - Medication Medications: Active Medications Generic Name Dose Route Start Last Admin Trade Name Freq PRN Reason Stop Dose Admin Acetaminophen 650 mg 03/06/20 01:56 03/06/20 11:59 Tylenol PO 650 mg Q4H PRN Administration Headache/Fever/Mild Pain (1-3) Albuterol Sulfate 1 puff 03/06/20 21:09 03/19/20 08:11 Proventil Hfa INH 1 puff Q8H PRN Administration Wheezing Apixaban 2.5 mg 03/11/20 21:00 03/20/20 08:32 Eliquis PO 2.5 mg BID SHANIKA Administration Atorvastatin Calcium 40 mg 03/19/20 21:00 03/19/20 22:19 Lipitor PO 40 mg HS SHANIKA Administration Carvedilol 12.5 mg 03/18/20 17:00 03/20/20 08:33 Coreg PO 12.5 mg BID-WM SHANIKA Administration Dexamethasone 2 mg 03/18/20 10:16 03/20/20 08:33 Decadron PO 2 mg QAM-WM SHANIKA Administration Insulin Human Lispro 0 units 03/06/20 02:05 03/17/20 17:14 Humalog SC 3 unit .MILD SLIDING SCALE PRN Administration Mild Correctional Scale Mometasone Furoate/Formoterol Fumar 2 puff 03/07/20 06:30 03/20/20 12:10 Dulera 200 Mcg/5 Mcg Inhaler INH 2 puff BID-RT SHANIKA Administration Pantoprazole Sodium 40 mg 03/11/20 09:00 03/20/20 08:32 Protonix PO 40 mg DAILY SHANIKA Administration Sodium Chloride 10 ml 03/06/20 09:00 03/20/20 08:33 Flush - Normal Saline IVF 10 ml Q12HR SHANIKA Administration - Exam General Appearance: NAD, awake alert Eye: PERRL ENT: normocephalic atraumatic Neck: supple Heart: RRR Respiratory: CTAB, normal chest expansion Gastrointestinal: soft, normal bowel sounds Neurological: no focal deficits Hosp A/P - Plan (1) Pneumonia due to COVID-19 virus Code(s): U07.1 - COVID-19; J12.89 - OTHER VIRAL PNEUMONIA Status: Acute (2) GAMALIEL (acute kidney injury) Code(s): N17.9 - ACUTE KIDNEY FAILURE, UNSPECIFIED Status: Acute (3) Acute respiratory failure with hypoxia Code(s): J96.01 - ACUTE RESPIRATORY FAILURE WITH HYPOXIA Status: Acute (4) Atrial fibrillation with rapid ventricular response Code(s): I48.91 - UNSPECIFIED ATRIAL FIBRILLATION Status: Acute (5) DM2 (diabetes mellitus, type 2) Status: Acute (6) HTN (hypertension) Code(s): I10 - ESSENTIAL (PRIMARY) HYPERTENSION Status: Acute - Plan COVID PNA--repeat test of 25th - came back +ve. bipap at night while on the floor tapering steroid dose. ------> now on decadron 2 mg daily prior test at [facility] ER +ve. ----repeat test of 25th - came back +ve. Afib -rate cont'd w..coreg--puse in 90s, inc'd coreg dose slightly -AC w eliquis. Gamaliel/ATN --TRANSIENT DIALYSIS turned out to be likely cw as m/w/f schedule. Needs outpt sleep study. sister Carter Esqueda [phone] Leukocytosis --recent COVID, last few days it was ok, today it is high. on decadron. -afebrile, clinically looks good. HD today/sunday Plan for dc in am, if cont'd stability.
[2020-03-20] MEDS: Atorvastatin Calcium 40 MG TAB PO SCH (21:15)
[2020-03-21] MEDS: Mometasone 200 MCG/Formoterol 5 MCG 120 PUFF INHALER INH SCH ×2 (05:41→23:48)
[2020-03-21 05:55] LABS: Hemoglobin 15.6 g/dL (14.0-18.0); Platelet Count 246 thou/uL (130-400)
[2020-03-21 06:06] LABS: Anion Gap 17 mmol/L (10-20); BUN (Urea Nitrogen) 76 mg/dL (8.9-20.6); Calc. Creatinine Clearance 18 mL/min (70-130); Carbon Dioxide 23 mmol/L (22-29); Chloride 99 mmol/L (98-107); Estimated GFR-MDRD 7; Glucose 155 mg/dL (70-105); Sodium 135 mmol/L (136-145)
[2020-03-21] MEDS: Carvedilol 6.25 MG TAB PO SCH ×2 (08:21→15:50)
[2020-03-21] MEDS: Dexamethasone 4 MG TAB PO SCH (08:22)
[2020-03-21] MEDS: Apixaban 2.5 MG TAB PO SCH ×2 (08:22→21:08)
[2020-03-21 11:28] LABS: Hemoglobin 14.8 g/dL (14.0-18.0); Mean Corpuscular HGB CONC 32.2 g/dL (32.0-36.0); Mean Corpuscular Hemoglobin 28.7 pg (27.0-31.0); Mean Corpuscular Volume 89.2 fL (78.0-98.0); Mean Platelet Volume 10.6 fL (7.4-10.4); Platelet Count 236 thou/uL (130-400); RBC Distribution Width 17.3 % (11.5-14.5); Red Blood Cell (RBC) Count 5.17 mill/uL (4.70-6.10); White Blood Cell (WBC) Count 19.7 thou/uL (4.8-10.8)
[2020-03-21 12:02] LABS: Eosinophils 2 % (0-10); Hypersemented Neutrophil SLIGHT; Large Platelets SLIGHT; Lymphocytes 3 % (21-51); MDiff Complete? YES; Monocytes 11 % (0-10); Neutrophil 84 % (42-75); Platelet Morphology Comment Appears Adequate
[2020-03-21] MEDS: HumaLOG 300 UNITS/3 ML VIAL SC PRN ×2 (13:00→17:51)
--- NOTE | 2020-03-21 14:54 | PDOC.HOSPP ---
- Subjective Encounter Date: 03/21/20 Encounter Time: 12:45 Subjective: pt sitting in the bed, he has no c/o but wants me to talk to his sister, i did talk to her. - his outpt dialysis has to be set up, but then he needs tunnel catheter, which cannot be placed until COVID is negative. will check the COVID again, and if negative, may approach sux to consider for tunnel cath placement -- may take few weeks - do we keep him here or home with ER visit for dialysis sister says that he needs to have outpt dialysis to be setup -c/s CM to stream line these- whether sister would be able to provide transport - Objective Vital Signs & Weight: Vital Signs (12 hours) Temp Pulse Resp BP Pulse Ox 03/21/20 11:31 97.3 F L 93 18 140/103 H 92 L 03/21/20 08:30 97.9 F 91 18 131/95 H 93 L 03/21/20 08:23 93 L 03/21/20 03:42 98.0 F 74 18 138/106 H 96 Weight Admit Weight 278 lb Weight 290 lb Most Recent Monitor Data Heart Rate from ECG 106 NIBP 134/112 NIBP BP-Mean 119 Respiration from ECG 21 SpO2 95 I&O: 03/20/20 03/21/20 03/22/20 06:59 06:59 06:59 Intake Total 100 850 Output Total 3000 Balance 100 -2150 Result Diagrams: 03/21/20 10:53 03/21/20 05:36 Additional Labs: Accuchecks 03/21/20 03/21/20 03/20/20 11:26 05:29 15:45 POC Glucose 204 H 134 H 149 H Hospitalist ROS - Medication Medications: Active Medications Generic Name Dose Route Start Last Admin Trade Name Freq PRN Reason Stop Dose Admin Acetaminophen 650 mg 03/06/20 01:56 03/06/20 11:59 Tylenol PO 650 mg Q4H PRN Administration Headache/Fever/Mild Pain (1-3) Albuterol Sulfate 1 puff 03/06/20 21:09 03/19/20 08:11 Proventil Hfa INH 1 puff Q8H PRN Administration Wheezing Apixaban 2.5 mg 03/11/20 21:00 03/21/20 08:22 Eliquis PO 2.5 mg BID SHANIKA Administration Atorvastatin Calcium 40 mg 03/19/20 21:00 03/20/20 21:15 Lipitor PO 40 mg HS SHANIKA Administration Carvedilol 12.5 mg 03/18/20 17:00 03/21/20 08:21 Coreg PO 12.5 mg BID-WM SHANIKA Administration Dexamethasone 2 mg 03/18/20 10:16 03/21/20 08:22 Decadron PO 2 mg QAM-WM SHANIKA Administration Insulin Human Lispro 0 units 03/06/20 02:05 03/21/20 13:00 Humalog SC 3 unit .MILD SLIDING SCALE PRN Administration Mild Correctional Scale Mometasone Furoate/Formoterol Fumar 2 puff 03/07/20 06:30 03/21/20 05:41 Dulera 200 Mcg/5 Mcg Inhaler INH 2 puff BID-RT SHANIKA Administration Pantoprazole Sodium 40 mg 03/11/20 09:00 03/21/20 08:22 Protonix PO 40 mg DAILY SHANIKA Administration Sodium Chloride 10 ml 03/06/20 09:00 03/21/20 08:23 Flush - Normal Saline IVF 10 ml Q12HR SHANIKA Administration - Exam General Appearance: NAD, awake alert Eye: PERRL ENT: normocephalic atraumatic Neck: supple Neurological: no focal deficits Psychiatric: normal affect, normal behavior, A&O x 3 Hosp A/P - Plan (1) Pneumonia due to COVID-19 virus Code(s): U07.1 - COVID-19; J12.89 - OTHER VIRAL PNEUMONIA Status: Acute (2) GAMALIEL (acute kidney injury) Code(s): N17.9 - ACUTE KIDNEY FAILURE, UNSPECIFIED Status: Acute (3) Acute respiratory failure with hypoxia Code(s): J96.01 - ACUTE RESPIRATORY FAILURE WITH HYPOXIA Status: Acute (4) Atrial fibrillation with rapid ventricular response Code(s): I48.91 - UNSPECIFIED ATRIAL FIBRILLATION Status: Acute (5) DM2 (diabetes mellitus, type 2) Status: Acute (6) HTN (hypertension) Code(s): I10 - ESSENTIAL (PRIMARY) HYPERTENSION Status: Acute - Plan COVID PNA--repeat test of 25th - came back +ve. bipap at night while on the floor tapering steroid dose. ------> now on decadron 2 mg daily prior test at [facility] ER +ve. ----repeat test of - came back +ve. Afib -rate cont'd w..coreg--puse in , inc'd coreg dose slightly -AC w eliquis. Gamaliel/ATN --TRANSIENT DIALYSIS turned out to be likely cw as m/w/f schedule. Needs outpt sleep study. sister Carter Esqueda [phone] Leukocytosis --recent COVID, last few days it was ok, today it is high. on decadron. -afebrile, clinically looks good. HD today/sunday Plan for dc in am, if cont'd stability. -pt has femoral access for transient dialysis - looks he needs ongoing HD--- ie needs tunnel cath. -he is voiding, but Cr still around 9 his outpt dialysis has to be set up, but then he needs tunnel catheter, which cannot be placed until COVID is negative. will check the COVID again, and if negative, may approach sux to consider for tunnel cath placement -- may take few weeks - do we keep him here or home with ER visits for dialysis sister says that he needs to have outpt dialysis to be setup -c/s CM to stream line these- whether sister would be able to provide transport or keep him atleast until see 2nd COVID test result.
--- NOTE | 2020-03-21 15:48 | PRG ---
DATE OF SERVICE: 03/21/2020 SUBJECTIVE: The patient is on COVID isolation. OBJECTIVE: VITAL SIGNS: Temperature 97.3, pulse 93, respiratory rate 18, and blood pressure 140/103. GENERAL: This is male in no acute distress. HEENT: Atraumatic, normocephalic. Oral mucosa is moist. NECK: Supple. CARDIOVASCULAR: S1, S2 heard. Rate and rhythm regular. RESPIRATORY: Clear to auscultation. GASTROINTESTINAL: Abdomen is soft. MUSCULOSKELETAL: No tenderness. No edema. DERMATOLOGIC: No skin rash. NEUROLOGIC: Alert and awake and oriented x3. No focal neurologic deficits. Moving all the extremities. PSYCHIATRIC: Mood and affect normal. LABORATORY DATA: Potassium 4.0, BUN is 76, and creatinine is 9.5. ASSESSMENT AND PLAN: 1. Acute kidney injury on chronic kidney disease stage 3, dialysis dependent. 2. Hyponatremia. 3. Hyperkalemia. 4. COVID-19 infection. 5. Acidosis. No acute indication for dialysis. Job ID: [id number]
[2020-03-21] MEDS: Atorvastatin Calcium 40 MG TAB PO SCH (21:08)
[2020-03-22] MEDS: HumaLOG 300 UNITS/3 ML VIAL SC PRN ×2 (06:04→17:00)
[2020-03-22 06:35] LABS: Anion Gap 19 mmol/L (10-20); BUN (Urea Nitrogen) 96 mg/dL (8.9-20.6); Calc. Creatinine Clearance 16 mL/min (70-130); Calcium 8.2 mg/dL (7.8-10.44); Carbon Dioxide 22 mmol/L (22-29); Chloride 99 mmol/L (98-107); Estimated GFR-MDRD 6; Glucose 196 mg/dL (70-105); Potassium 4.1 mmol/L (3.5-5.1); Sodium 136 mmol/L (136-145)
[2020-03-22] MEDS: Mometasone 200 MCG/Formoterol 5 MCG 120 PUFF INHALER INH SCH (06:43)
[2020-03-22] MEDS: Dexamethasone 4 MG TAB PO SCH (07:29)
[2020-03-22] MEDS: Carvedilol 6.25 MG TAB PO SCH ×2 (07:29→17:00)
--- NOTE | 2020-03-22 08:12 | PDOC.EVN ---
Event Note - Event Note Event Note: pt cannot even go home as he has femoral line. until COVID negative and tunnel cath placed, pt likely has to stay here.
[2020-03-22] MEDS ORDERED: Heparin 10,000 UNITS/ 10 ML VIAL ONE (09:26)
[2020-03-22] MEDS: Apixaban 2.5 MG TAB PO SCH ×2 (09:54→21:10)
[2020-03-22 13:56] VITALS: BMI 46.3
[2020-03-22 14:01] LABS: SARS-CoV-2 MS2 Positive; SARS-CoV-2 N Gene Positive; SARS-CoV-2 S Gene Positive; SARS-CoV-2 orf1ab Positive
--- NOTE | 2020-03-22 14:09 | PRG ---
DATE OF SERVICE: 03/22/2020 SUBJECTIVE: This is a 44-year-old gentleman being seen for end-stage renal disease. The patient denies any nausea, vomiting, or chest pain. OBJECTIVE: GENERAL: The patient is awake and alert. VITAL SIGNS: Afebrile, pulse 75, breathing at 16, blood pressure 104/54. HEENT: Head normocephalic and atraumatic. Eyes intact, no ulcers. Nose intact, no ulcers. Ears intact, no ulcers. NECK: Supple. No JVD. CHEST: Symmetrical and clear. CARDIOVASCULAR: Shows S1 and S2, no rub, no murmur. GASTROINTESTINAL: Abdomen is soft, bowel sounds positive. EXTREMITIES: Show no edema or ulcers. SKIN: Shows no rash or petechiae. MUSCULOSKELETAL: Shows no joint swelling or stiffness. GENITOURINARY: Shows no Albarran or CVA tenderness. NEUROLOGIC: Motor intact. Cranial nerves intact. ASSESSMENT: 1. chronic kidney disease, continue hemodialysis. 2. Hypertension, stable. 3. Anemia, stable. Medication based on GFR appropriate. Job ID: [id number]
--- NOTE | 2020-03-22 14:40 | PDOC.HOSPP ---
- Subjective Encounter Date: 03/22/20 Subjective: i talk to the pt over the phone, he is quite anxious to go home. repeat COVID positive. pt cannot even go home as he has femoral line. until COVID negative and tunnel cath placed, pt likely has to stay here. pt is quite upset that he needs to stay further, and would be willing to go AMA. I called his sister and explained, and she seems to understand and said she would talk to the pt. - Objective Vital Signs & Weight: Vital Signs (12 hours) Temp Pulse Resp BP BP Pulse Ox 03/22/20 12:00 76 12 104/54 L 03/22/20 08:00 81 L 03/22/20 07:37 97.7 F 81 16 159/97 H 91 L 03/22/20 07:29 140/95 H 03/22/20 04:48 97.5 F L 77 18 155/101 H 94 L 03/22/20 03:12 95 Weight Admit Weight 278 lb Weight 278 lb 3.574 oz Most Recent Monitor Data Heart Rate from ECG 106 NIBP 134/112 NIBP BP-Mean 119 Respiration from ECG 21 SpO2 95 I&O: 03/21/20 03/22/20 03/23/20 06:59 06:59 06:59 Intake Total 850 1520 Output Total 3000 Balance -2150 1520 Result Diagrams: 03/21/20 10:53 03/22/20 05:55 Additional Labs: Accuchecks 03/22/20 03/22/20 03/21/20 12:11 05:56 21:20 POC Glucose 176 H 178 H 187 H 03/21/20 16:00 POC Glucose 199 H Hospitalist ROS - Medication Medications: Active Medications Generic Name Dose Route Start Last Admin Trade Name Freq PRN Reason Stop Dose Admin Acetaminophen 650 mg 03/06/20 01:56 03/06/20 11:59 Tylenol PO 650 mg Q4H PRN Administration Headache/Fever/Mild Pain (1-3) Albuterol Sulfate 1 puff 03/06/20 21:09 03/19/20 08:11 Proventil Hfa INH 1 puff Q8H PRN Administration Wheezing Apixaban 2.5 mg 03/11/20 21:00 03/22/20 09:54 Eliquis PO 2.5 mg BID SHANIKA Administration Atorvastatin Calcium 40 mg 03/19/20 21:00 03/21/20 21:08 Lipitor PO 40 mg HS SHANIKA Administration Carvedilol 12.5 mg 03/18/20 17:00 03/22/20 07:29 Coreg PO 12.5 mg BID-WM SHANIKA Administration Dexamethasone 2 mg 03/18/20 10:16 03/22/20 07:29 Decadron PO 2 mg QAM-WM SHANIKA Administration Insulin Human Lispro 0 units 03/06/20 02:05 03/22/20 06:04 Humalog SC 2 unit .MILD SLIDING SCALE PRN Administration Mild Correctional Scale Mometasone Furoate/Formoterol Fumar 2 puff 03/07/20 06:30 03/22/20 06:43 Dulera 200 Mcg/5 Mcg Inhaler INH 2 puff BID-RT SHANIKA Administration Pantoprazole Sodium 40 mg 03/11/20 09:00 03/22/20 07:29 Protonix PO 40 mg DAILY SHANIKA Administration Sodium Chloride 10 ml 03/06/20 09:00 03/22/20 07:29 Flush - Normal Saline IVF 10 ml Q12HR SHANIKA Administration Hosp A/P - Plan (1) Pneumonia due to COVID-19 virus Code(s): U07.1 - COVID-19; J12.89 - OTHER VIRAL PNEUMONIA Status: Acute (2) GAMALIEL (acute kidney injury) Code(s): N17.9 - ACUTE KIDNEY FAILURE, UNSPECIFIED Status: Acute (3) Acute respiratory failure with hypoxia Code(s): J96.01 - ACUTE RESPIRATORY FAILURE WITH HYPOXIA Status: Acute (4) Atrial fibrillation with rapid ventricular response Code(s): I48.91 - UNSPECIFIED ATRIAL FIBRILLATION Status: Acute (5) DM2 (diabetes mellitus, type 2) Status: Acute (6) HTN (hypertension) Code(s): I10 - ESSENTIAL (PRIMARY) HYPERTENSION Status: Acute - Plan COVID PNA--repeat test of 25th - came back +ve. bipap at night while on the floor tapering steroid dose. ------> now on decadron 2 mg daily prior test at [facility] ER +ve. ----repeat test of 25th - came back +ve. Afib -rate cont'd w..coreg--puse in 90s, inc'd coreg dose slightly -AC w eliquis. Gamaliel/ATN --TRANSIENT DIALYSIS turned out to be likely cw as m/w/f schedule. Needs outpt sleep study. sister Carter Esqueda [phone] Leukocytosis --recent COVID, last few days it was ok, today it is high. on decadron. -afebrile, clinically looks good. HD today/sunday Plan for dc in am, if cont'd stability. -pt has femoral access for transient dialysis - looks he needs ongoing HD--- ie needs tunnel cath. -he is voiding, but Cr still around 9 his outpt dialysis has to be set up, but then he needs tunnel catheter, which cannot be placed until COVID is negative. will check the COVID again, and if negative, may approach sux to consider for tunnel cath placement -- may take few weeks - do we keep him here or home with ER visits for dialysis sister says that he needs to have outpt dialysis to be setup -c/s CM to stream line these- whether sister would be able to provide transport or keep him atleast until see 2nd COVID test result. pt cannot even go home as he has femoral line. until COVID negative and tunnel cath placed, pt likely has to stay here. pt is quite upset that he needs to stay further, and would be willing to go AMA. I called his sister and explained, and she seems to understand and said she would talk to the pt. Repeat COVID of +ve. cannot consult sux until COVID negative.
[2020-03-22] MEDS: Atorvastatin Calcium 40 MG TAB PO SCH (21:10)
[2020-03-23] MEDS: Mometasone 200 MCG/Formoterol 5 MCG 120 PUFF INHALER INH SCH ×3 (01:21→19:53)
[2020-03-23 06:23] LABS: Anion Gap 18 mmol/L (10-20); BUN (Urea Nitrogen) 81 mg/dL (8.9-20.6); Calc. Creatinine Clearance 17 mL/min (70-130); Calcium 7.9 mg/dL (7.8-10.44); Carbon Dioxide 22 mmol/L (22-29); Chloride 100 mmol/L (98-107); Estimated GFR-MDRD 7; Glucose 141 mg/dL (70-105); Potassium 4.2 mmol/L (3.5-5.1); Sodium 136 mmol/L (136-145)
[2020-03-23] MEDS: Dexamethasone 4 MG TAB PO SCH (08:44)
[2020-03-23] MEDS: Carvedilol 6.25 MG TAB PO SCH ×2 (08:44→16:01)
[2020-03-23] MEDS: hydrALAZINE 20 MG/ML VIAL SLOW IVP PRN ×2 (09:57→20:10)
[2020-03-23] MEDS: Apixaban 2.5 MG TAB PO SCH ×2 (12:23→19:52)
--- NOTE | 2020-03-23 14:37 | PDOC.HOSPP ---
- Subjective Encounter Date: 03/23/20 Encounter Time: 09:30 Subjective: i talk to the pt at length, he apologized for being rude yesterday. Chas gilbert called reg.. cOVID pts getting surgery --- surgery has to decide on that for tunnel cath placement on this pt. pt ahs no acute c/o sats good and ambulating S distress. - Objective Vital Signs & Weight: Vital Signs (12 hours) Temp Pulse Resp BP BP Pulse Ox 03/23/20 11:08 79 129/86 03/23/20 10:08 139/85 03/23/20 09:57 79 03/23/20 08:57 97.4 F L 79 16 159/115 H 93 L 03/23/20 08:44 140/95 H 03/23/20 08:00 93 L Weight Admit Weight 278 lb Weight 278 lb 3.574 oz Most Recent Monitor Data Heart Rate from ECG 106 NIBP 134/112 NIBP BP-Mean 119 Respiration from ECG 21 SpO2 95 I&O: 03/22/20 03/23/20 03/24/20 06:59 06:59 06:59 Intake Total 1520 1210 Output Total 275 Balance 1520 935 Result Diagrams: 03/21/20 10:53 03/23/20 05:36 Additional Labs: Accuchecks 03/23/20 03/23/20 03/22/20 11:10 05:36 21:28 POC Glucose 190 H 128 H 207 H 03/22/20 15:50 POC Glucose 260 H Hospitalist ROS - Medication Medications: Active Medications Generic Name Dose Route Start Last Admin Trade Name Freq PRN Reason Stop Dose Admin Acetaminophen 650 mg 03/06/20 01:56 03/06/20 11:59 Tylenol PO 650 mg Q4H PRN Administration Headache/Fever/Mild Pain (1-3) Albuterol Sulfate 1 puff 03/06/20 21:09 03/19/20 08:11 Proventil Hfa INH 1 puff Q8H PRN Administration Wheezing Apixaban 2.5 mg 03/11/20 21:00 03/23/20 12:23 Eliquis PO 2.5 mg BID SHANIKA Administration Atorvastatin Calcium 40 mg 03/19/20 21:00 03/22/20 21:10 Lipitor PO 40 mg HS SHANIKA Administration Carvedilol 12.5 mg 03/18/20 17:00 03/23/20 08:44 Coreg PO 12.5 mg BID-WM SHANIKA Administration Dexamethasone 2 mg 03/18/20 10:16 03/23/20 08:44 Decadron PO 2 mg QAM-WM SHANIKA Administration Hydralazine HCl 10 mg 03/23/20 09:30 03/23/20 09:57 Apresoline SLOW IVP 10 mg PRN PRN Administration SBP > 150 Insulin Human Lispro 0 units 03/06/20 02:05 03/22/20 17:00 Humalog SC 4 unit .MILD SLIDING SCALE PRN Administration Mild Correctional Scale Mometasone Furoate/Formoterol Fumar 2 puff 03/07/20 06:30 03/23/20 05:55 Dulera 200 Mcg/5 Mcg Inhaler INH 2 puff BID-RT SHANIKA Administration Pantoprazole Sodium 40 mg 03/11/20 09:00 03/23/20 08:44 Protonix PO 40 mg DAILY SHANIKA Administration Sodium Chloride 10 ml 03/06/20 09:00 03/23/20 12:23 Flush - Normal Saline IVF 10 ml Q12HR SHANIKA Administration Hosp A/P - Plan (1) Pneumonia due to COVID-19 virus Code(s): U07.1 - COVID-19; J12.89 - OTHER VIRAL PNEUMONIA Status: Acute (2) MESFIN (acute kidney injury) Code(s): N17.9 - ACUTE KIDNEY FAILURE, UNSPECIFIED Status: Acute (3) Acute respiratory failure with hypoxia Code(s): J96.01 - ACUTE RESPIRATORY FAILURE WITH HYPOXIA Status: Acute (4) Atrial fibrillation with rapid ventricular response Code(s): I48.91 - UNSPECIFIED ATRIAL FIBRILLATION Status: Acute (5) DM2 (diabetes mellitus, type 2) Status: Acute (6) HTN (hypertension) Code(s): I10 - ESSENTIAL (PRIMARY) HYPERTENSION Status: Acute - Plan COVID PNA--repeat test of 25th - came back +ve. bipap at night while on the floor tapering steroid dose. ------> now on decadron 2 mg daily prior test at [facility] ER +ve. ----repeat test of 25th - came back +ve. Afib -rate cont'd w..coreg--puse in 90s, inc'd coreg dose slightly -AC w eliquis. Mesfin/ATN --TRANSIENT DIALYSIS turned out to be likely cw as m/w/f schedule. Needs outpt sleep study. sister Carter Esqueda [phone] Leukocytosis --recent COVID, last few days it was ok, today it is high. on decadron. -afebrile, clinically looks good. HD today/sunday Plan for dc in am, if cont'd stability. -pt has femoral access for transient dialysis - looks he needs ongoing HD--- ie needs tunnel cath. -he is voiding, but Cr still around 9 his outpt dialysis has to be set up, but then he needs tunnel catheter, which cannot be placed until COVID is negative. will check the COVID again, and if negative, may approach sux to consider for tunnel cath placement -- may take few weeks - do we keep him here or home with ER visits for dialysis sister says that he needs to have outpt dialysis to be setup -c/s CM to stream line these- whether sister would be able to provide transport or keep him atleast until see 2nd COVID test result. pt cannot even go home as he has femoral line. until COVID negative and tunnel cath placed, pt likely has to stay here. pt is quite upset that he needs to stay further, and would be willing to go AMA. I called his sister and explained, and she seems to understand and said she would talk to the pt. Repeat COVID of +ve. cannot consult sux until COVID negative. Chas gilbert called reg.. COVID pts getting surgery --- surgery has to decide on that for tunnel cath placement on this pt. -pending above workup.
--- NOTE | 2020-03-23 14:58 | PRG ---
DATE OF SERVICE: 03/23/2020 SUBJECTIVE: A 44-year-old gentleman being seen for end-stage renal disease. The patient denies nausea, vomiting, or chest pain. OBJECTIVE: GENERAL: On exam, the patient is awake and alert. VITAL SIGNS: Afebrile, pulse 75, breathing at 16, and blood pressure 130/70. HEENT: Head normocephalic and atraumatic. Eyes intact, no ulcers. Nose intact, no ulcers. Ears intact, no ulcers. NECK: Supple. No JVD. CHEST: Symmetrical and clear. CARDIOVASCULAR: Shows S1 and S2, no rub, no murmur. GASTROINTESTINAL: Abdomen is soft, bowel sounds positive. EXTREMITIES: Show no edema or ulcers. SKIN: Shows no rash or petechiae. MUSCULOSKELETAL: Shows no joint swelling or stiffness. GENITOURINARY: Shows no Albarran or CVA tenderness. NEUROLOGIC: Motor intact. Cranial nerves intact. LABORATORY DATA: Labs show creatinine 9.4. ASSESSMENT AND PLAN: 1. Chronic kidney disease, stage 5 with acute kidney injury. The patient is doing a 24-hour specimen. We will evaluate if the patient will need permanent dialysis. 2. Hypertension, stable. 3. Anemia, stable. 4. Medications based on GFR are appropriate. Job ID: [id number]
[2020-03-23 17:19] LABS: Body Surface Area 2.27
[2020-03-23 17:53] LABS: 24 Hr Creatinine 816.38 mg/24 hr (950-2490); Creatinine, Urine 108.85 mg/dL (63-166)
[2020-03-23 18:04] LABS: Creatinine, Urine 107.17 mg/dL (63-166)
--- NOTE | 2020-03-23 18:40 | CON ---
DATE OF CONSULTATION: HISTORY OF PRESENT ILLNESS: Jhony Ramirez is a 44-year-old male, seen in consultation for dialysis access. Height 5 foot and 5 inches, weight 278 pounds, 46 BMI. Preexisting diabetes, hypertension, with chronic kidney disease, presents with COVID illness, admitted to the Hospitalist Service on 03/06/2020, seen in consultation by Pulmonary Medicine and Dr. Grant, Cardiology. He was admitted for dyspnea. 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 Dr. Peterson placed a femoral vein dialysis catheter on 03/17/2020, and Dr. Gutierres and Dr. Wray have been seeing him from Nephrology standpoint. He developed atrial fibrillation, RVR, treated with IV Cardizem, without prior history of atrial flutter. There were no cardiac symptoms otherwise. The patient was treated for atrial fibrillation. He has a past history of sleep apnea, hypertension. Vein mapping has been ordered, but administration has postponed this for 2 days. I have been asked to see him regarding establishment of a cuffed tunneled hemodialysis catheter to facilitate discharge. The dialysis unit in [place] is dialyzing COVID patients transported by other facility. Outpatient dialysis arrangements are made once cuffed tunneled dialysis catheter is placed. The patient states that he is feeling much better and breathing comfortably. During this interview, the patient's sister is on the phone, interacting and asking questions. ALLERGIES: NONE. SOCIAL HISTORY: Tobacco, none. Alcohol, none. MEDICATIONS: Prehospitalization; 1. Metformin. 2. Losartan. 3. Carvedilol. 4. Atorvastatin. 5. Amlodipine. This hospitalization; 1. Inhalers. 2. Sliding scale insulin. 3. Eliquis has been added. PAST SURGICAL HISTORY: Nothing pertinent. PAST MEDICAL HISTORY: Morbid obesity, metabolic syndrome, hypertension, diabetes mellitus, sleep apnea, end-stage renal disease, current COVID positive, atrial fibrillation, on anticoagulation, Eliquis added in this hospitalization. REVIEW OF SYSTEMS: Otherwise, noncontributory. PHYSICAL EXAMINATION: VITAL SIGNS: Height is 5 feet and 5 inches, weight 278 pounds, 46 BMI. Temperature 97.4, blood pressure 140/95, heart rate 79. HEAD, EARS, EYES, NOSE, AND THROAT: Unremarkable. LUNGS: Clear to auscultation. CARDIAC: Regular rate and rhythm without murmur or gallop. ABDOMEN: Obese, soft, and nontender. EXTREMITIES: Palpable radial pulses bilaterally. There is a wound on his mid volar forearm with a Tegaderm dressing. He states this was due to a blood pressure cuff or some cuff present. Extremities are unremarkable otherwise. LABORATORY DATA: White count 19, hemoglobin 14. Basic metabolic profile unremarkable. Potassium 4.2. BUN, creatinine, GFR consistent with end-stage renal disease. ASSESSMENT AND PLAN: End-stage renal disease, will need dialysis access to facilitate discharge on outpatient dialysis. We will plan placement of cuffed tunneled dialysis catheter. The patient is right-handed. Ultrasound vein mapping will be obtained in the next day or two. We will plan primary fistula placement in right or left arm. We will plan this under regional anesthesia. Risks of infection, bleeding, reoperation, second-stage operation discussed. He consents and questions answered. Job ID: [id number]
[2020-03-23] MEDS: Atorvastatin Calcium 40 MG TAB PO SCH (19:52)
[2020-03-23] MEDS: HumaLOG 300 UNITS/3 ML VIAL SC PRN (20:10)
[2020-03-24 04:15] LABS: Hemoglobin 13.5 g/dL (14.0-18.0); Platelet Count 139 thou/uL (130-400)
[2020-03-24 04:38] LABS: Anion Gap 14 mmol/L (10-20); BUN (Urea Nitrogen) 71 mg/dL (8.9-20.6); Calc. Creatinine Clearance 23 mL/min (70-130); Calcium 5.6 mg/dL (7.8-10.44); Carbon Dioxide 15 mmol/L (22-29); Chloride 112 mmol/L (98-107); Estimated GFR-MDRD 10; Glucose 144 mg/dL (70-105); Potassium 3.2 mmol/L (3.5-5.1); Sodium 138 mmol/L (136-145)
[2020-03-24] MEDS ORDERED: Calcium Gluc 4.6 MEQ/10 ML (100 MG/ML) SLOW IVP SCH (08:21)
[2020-03-24] MEDS ORDERED: Potassium Chloride 20 MEQ TAB PO SCH (08:30)
[2020-03-24] MEDS: Dexamethasone 4 MG TAB PO SCH (09:06)
[2020-03-24] MEDS: Carvedilol 6.25 MG TAB PO SCH ×2 (09:07→15:54)
[2020-03-24 10:19] LABS: Anion Gap 20 mmol/L (10-20); BUN (Urea Nitrogen) 80 mg/dL (8.9-20.6); Calc. Creatinine Clearance 18 mL/min (70-130); Calcium 7.7 mg/dL (7.8-10.44); Carbon Dioxide 21 mmol/L (22-29); Chloride 100 mmol/L (98-107); Estimated GFR-MDRD 8; Glucose 180 mg/dL (70-105); Potassium 3.9 mmol/L (3.5-5.1); Sodium 137 mmol/L (136-145)
--- NOTE | 2020-03-24 10:33 | PRG ---
DATE OF SERVICE: 03/24/2020 SUBJECTIVE: A 44-year-old gentleman being seen for acute kidney injury, dialysis dependent. The patient denied nausea, vomiting, or chest pain. OBJECTIVE: GENERAL: On exam, the patient is awake and alert. VITAL SIGNS: Afebrile, pulse 75, breathing at 16, and blood pressure 120/78. HEENT: Head normocephalic and atraumatic. Eyes intact, no ulcers. Nose intact, no ulcers. Ears intact, no ulcers. NECK: Supple. No JVD. CHEST: Symmetrical and clear. CARDIOVASCULAR: Shows S1 and S2, no rub, no murmur. GASTROINTESTINAL: Abdomen is soft, bowel sounds positive. EXTREMITIES: Show no edema or ulcers. SKIN: Shows no rash or petechiae. MUSCULOSKELETAL: Shows no joint swelling or stiffness. GENITOURINARY: Shows no Albarran or CVA tenderness. NEUROLOGIC: Motor intact. Cranial nerves intact. LABORATORY DATA: Hemoglobin 13.5. Creatinine 7.2. ASSESSMENT AND PLAN: 1. Acute kidney injury, improved. 2. Hypertension, stable. 3. Anemia, stable. We will hold off on dialysis. 4. Metabolic acidosis. Start the patient on sodium bicarbonate. 5. Hypocalcemia. Start the patient on high-dose calcium. Repeat labs. Job ID: [id number]
--- NOTE | 2020-03-24 15:10 | PDOC.HOSPP ---
- Subjective Encounter Date: 03/24/20 Encounter Time: 15:00 Subjective: talk to the pt over the phone as his stable -pt feels fine, and knows that he is going for procedure on sunday, and happy with that. sats 92% in RA--he remained more or less 92 to 94% in the last few days in RA. High wbcs. plan for tunnel cath on sunday and US guided vein mapping today or tomorrow. - Objective Vital Signs & Weight: Vital Signs (12 hours) Temp Pulse Resp BP Pulse Ox 03/24/20 09:00 97.9 F 86 16 120/78 92 L 03/24/20 04:07 136/83 Weight Admit Weight 278 lb Weight 278 lb 3.574 oz Most Recent Monitor Data Heart Rate from ECG 106 NIBP 134/112 NIBP BP-Mean 119 Respiration from ECG 21 SpO2 95 I&O: 03/23/20 03/24/20 03/25/20 06:59 06:59 06:59 Intake Total 1210 Output Total 275 Balance 935 Result Diagrams: 03/24/20 03:50 03/24/20 08:44 Additional Labs: Accuchecks 03/24/20 03/24/20 03/23/20 10:26 04:05 20:09 POC Glucose 156 H 160 H 169 H 03/23/20 16:09 POC Glucose 188 H Hospitalist ROS - Medication Medications: Active Medications Generic Name Dose Route Start Last Admin Trade Name Freq PRN Reason Stop Dose Admin Acetaminophen 650 mg 03/06/20 01:56 03/06/20 11:59 Tylenol PO 650 mg Q4H PRN Administration Headache/Fever/Mild Pain (1-3) Albuterol Sulfate 1 puff 03/06/20 21:09 03/19/20 08:11 Proventil Hfa INH 1 puff Q8H PRN Administration Wheezing Atorvastatin Calcium 40 mg 03/19/20 21:00 03/23/20 19:52 Lipitor PO 40 mg HS SHANIKA Administration Carvedilol 12.5 mg 03/18/20 17:00 03/24/20 09:07 Coreg PO 12.5 mg BID-WM SHANIKA Administration Dexamethasone 2 mg 03/18/20 10:16 03/24/20 09:06 Decadron PO 2 mg QAM-WM SHANIKA Administration Hydralazine HCl 10 mg 03/23/20 09:30 03/23/20 20:10 Apresoline SLOW IVP 10 mg PRN PRN Administration SBP > 150 Insulin Human Lispro 0 units 03/06/20 02:05 03/23/20 20:10 Humalog SC 2 unit .MILD SLIDING SCALE PRN Administration Mild Correctional Scale Mometasone Furoate/Formoterol Fumar 2 puff 03/07/20 06:30 03/23/20 19:53 Dulera 200 Mcg/5 Mcg Inhaler INH Not Given BID-RT SHANIKA Pantoprazole Sodium 40 mg 03/11/20 09:00 03/24/20 09:06 Protonix PO 40 mg DAILY SHANIKA Administration Sodium Chloride 10 ml 03/06/20 09:00 03/24/20 09:07 Flush - Normal Saline IVF 10 ml Q12HR SHANIKA Administration Hosp A/P - Plan (1) Pneumonia due to COVID-19 virus Code(s): U07.1 - COVID-19; J12.89 - OTHER VIRAL PNEUMONIA Status: Acute (2) MESFIN (acute kidney injury) Code(s): N17.9 - ACUTE KIDNEY FAILURE, UNSPECIFIED Status: Acute (3) Acute respiratory failure with hypoxia Code(s): J96.01 - ACUTE RESPIRATORY FAILURE WITH HYPOXIA Status: Acute (4) Atrial fibrillation with rapid ventricular response Code(s): I48.91 - UNSPECIFIED ATRIAL FIBRILLATION Status: Acute (5) DM2 (diabetes mellitus, type 2) Status: Acute (6) HTN (hypertension) Code(s): I10 - ESSENTIAL (PRIMARY) HYPERTENSION Status: Acute - Plan COVID PNA--repeat test of 25th - came back +ve. bipap at night while on the floor tapering steroid dose. ------> now on decadron 2 mg daily prior test at [facility] ER +ve. ----repeat test of 25th - came back +ve. Afib -rate cont'd w..coreg--puse in 90s, inc'd coreg dose slightly -AC w eliquis. Mesfin/ATN --TRANSIENT DIALYSIS turned out to be likely cw as m/w/f schedule. Needs outpt sleep study. sister Carter Esqueda [phone] Leukocytosis --recent COVID, last few days it was ok, today it is high. on decadron. -afebrile, clinically looks good. HD today/sunday Plan for dc in am, if cont'd stability. -pt has femoral access for transient dialysis - looks he needs ongoing HD--- ie needs tunnel cath. -he is voiding, but Cr still around 9 his outpt dialysis has to be set up, but then he needs tunnel catheter, which cannot be placed until COVID is negative. will check the COVID again, and if negative, may approach sux to consider for tunnel cath placement -- may take few weeks - do we keep him here or home with ER visits for dialysis sister says that he needs to have outpt dialysis to be setup -c/s CM to stream line these- whether sister would be able to provide transport or keep him atleast until see 2nd COVID test result. pt cannot even go home as he has femoral line. until COVID negative and tunnel cath placed, pt likely has to stay here. pt is quite upset that he needs to stay further, and would be willing to go AMA. I called his sister and explained, and she seems to understand and said she would talk to the pt. Repeat COVID of +ve. cannot consult sux until COVID negative. Chas gilbert called reg.. COVID pts getting surgery --- surgery has to decide on that for tunnel cath placement on this pt. -pending above workup. 1st Hypochloremic metab. acidosis - renal dz - on NaHCO3 suppl't--ordered 650 tid Hypocalcemia --again on ca suppl't Hypoxia - sats 92% in RA--he remained more or less 92 to 94% in the last few days in RA. leukocytosis --? clinically stable---on low dose decadron.-----------> increaesd to standard dose as may help with improving O2 sat -- will get CXR to follow up ESRD - GFR<10 -- tunnel cath placement planned for sunday.
[2020-03-24] MEDS: Calcium Carbonate 600 MG + Vit D TAB PO SCH (15:54)
--- NOTE | 2020-03-24 16:11 | RAD ---
XR Chest 1 View Portable HISTORY: High WBC count COMPARISON: 03/16/2020 FINDINGS: The heart size is prominent. The lungs are well expanded without focal areas of consolidati on, pneumothorax or pleural effusions. IMPRESSION: No radiographic evidence of acute cardiopulmonary process.
[2020-03-24] MEDS: HumaLOG 300 UNITS/3 ML VIAL SC PRN ×2 (17:13→19:46)
[2020-03-24] MEDS: Mometasone 200 MCG/Formoterol 5 MCG 120 PUFF INHALER INH SCH ×2 (17:41→19:25)
[2020-03-24] MEDS: Atorvastatin Calcium 40 MG TAB PO SCH (19:25)
[2020-03-24] MEDS: Sodium Bicarbonate Tab 325 MG TAB PO SCH (19:25)
[2020-03-25] MEDS: Mometasone 200 MCG/Formoterol 5 MCG 120 PUFF INHALER INH SCH ×2 (06:30→18:30)
[2020-03-25 06:43] LABS: Hemoglobin 15.4 g/dL (14.0-18.0); Mean Corpuscular HGB CONC 31.5 g/dL (32.0-36.0); Mean Corpuscular Hemoglobin 28.5 pg (27.0-31.0); Mean Corpuscular Volume 90.6 fL (78.0-98.0); Mean Platelet Volume 11.5 fL (7.4-10.4); Platelet Count 143 thou/uL (130-400); RBC Distribution Width 17.6 % (11.5-14.5); Red Blood Cell (RBC) Count 5.39 mill/uL (4.70-6.10); White Blood Cell (WBC) Count 22.4 thou/uL (4.8-10.8)
[2020-03-25 06:48] LABS: Anion Gap 16 mmol/L (10-20); BUN (Urea Nitrogen) 85 mg/dL (8.9-20.6); Calc. Creatinine Clearance 19 mL/min (70-130); Calcium 7.7 mg/dL (7.8-10.44); Carbon Dioxide 20 mmol/L (22-29); Chloride 104 mmol/L (98-107); Estimated GFR-MDRD 8; Glucose 163 mg/dL (70-105); Potassium 4.2 mmol/L (3.5-5.1); Sodium 136 mmol/L (136-145)
[2020-03-25 07:41] LABS: Band 1 % (5-11); Eosinophils 2 % (0-10); Lymphocytes 1 % (21-51); MDiff Complete? YES; Monocytes 3 % (0-10); Neutrophil 90 % (42-75); Platelet Morphology Comment Appears Adequate; RBC Morphology Normal; Reactive Lymphocytes 3 % (0-10)
[2020-03-25] MEDS: Carvedilol 6.25 MG TAB PO SCH ×3 (07:51→16:02)
[2020-03-25] MEDS: Sodium Bicarbonate Tab 325 MG TAB PO SCH ×4 (07:51→21:13)
[2020-03-25] MEDS: Calcium Carbonate 600 MG + Vit D TAB PO SCH ×3 (07:51→16:02)
[2020-03-25] MEDS: Dexamethasone 4 MG TAB PO SCH ×2 (07:52→09:13)
[2020-03-25] MEDS ORDERED: Calcium Carbonate 600 MG + Vit D TAB PO SCH (08:15)
[2020-03-25] MEDS ORDERED: Dexamethasone 4 MG TAB PO SCH (08:15)
[2020-03-25] MEDS ORDERED: Sodium Bicarbonate Tab 325 MG TAB PO SCH (08:15)
[2020-03-25] MEDS ORDERED: Carvedilol 6.25 MG TAB PO SCH (08:15)
--- NOTE | 2020-03-25 11:00 | PRG ---
DATE OF SERVICE: 03/25/2020 SUBJECTIVE: A 44-year-old gentleman, being seen for end-stage renal disease. The patient denies any nausea, vomiting, or chest pain. PHYSICAL EXAMINATION: GENERAL: The patient is awake and alert. VITAL SIGNS: Afebrile, pulse 84, breathing at 16, blood pressure 116/78. HEENT: Head normocephalic and atraumatic. Eyes intact, no ulcers. Nose intact, no ulcers. Ears intact, no ulcers. NECK: Supple. No JVD. CHEST: Symmetrical and clear. CARDIOVASCULAR: Shows S1 and S2, no rub, no murmur. GASTROINTESTINAL: Abdomen is soft, bowel sounds positive. EXTREMITIES: Show no edema or ulcers. SKIN: Shows no rash or petechiae. MUSCULOSKELETAL: Shows no joint swelling or stiffness. GENITOURINARY: Shows no Albarran or CVA tenderness. NEUROLOGIC: Motor intact. Cranial nerves intact. LABORATORY STUDIES: Hemoglobin is 15. Creatinine 8.8. ASSESSMENT AND PLAN: 1. Acute kidney injury with chronic kidney disease stage 5, improved. 2. Nonoliguric. 3. Hypertension, stable. We will hold off on dialysis and we will hold off permanent catheter placement. Job ID: [id number]
[2020-03-25 11:48] LABS: ALT (SGPT) 35 U/L (8-55); AST (SGOT) 31 U/L (5-34); Alkaline Phosphatase 68 U/L (40-110); Bilirubin, Direct 0.2 mg/dL (0.1-0.3); Bilirubin, Total 0.5 mg/dL (0.2-1.2); Protein, Total 4.8 g/dL (6.0-8.3)
[2020-03-25] MEDS: HumaLOG 300 UNITS/3 ML VIAL SC PRN ×3 (12:45→21:39)
--- NOTE | 2020-03-25 14:44 | PDOC.HOSPP ---
- Subjective Encounter Date: 03/25/20 Encounter Time: 10:50 Subjective: Talk to the pt this am, over the phone, as he is quite stable. plan for tunnel cath tomorrow, but his wbcs keep trending up. pt states that he has no trouble breathing [in RA] and ambulating inside the room without SOB. No dysuria sxs. - Objective Vital Signs & Weight: Vital Signs (12 hours) Temp Pulse Resp BP Pulse Ox 03/25/20 07:50 98.4 F 67 16 116/78 96 Weight Admit Weight 278 lb Weight 278 lb 3.574 oz Most Recent Monitor Data Heart Rate from ECG 106 NIBP 134/112 NIBP BP-Mean 119 Respiration from ECG 21 SpO2 95 Result Diagrams: 03/25/20 06:18 03/25/20 06:18 Additional Labs: Accuchecks 03/25/20 03/25/20 03/24/20 12:54 03:45 19:41 POC Glucose 254 H 174 H 212 H 03/24/20 03/24/20 16:02 10:26 POC Glucose 316 H 156 H Hospitalist ROS - Medication Medications: Active Medications Generic Name Dose Route Start Last Admin Trade Name Freq PRN Reason Stop Dose Admin Acetaminophen 650 mg 03/06/20 01:56 03/06/20 11:59 Tylenol PO 650 mg Q4H PRN Administration Headache/Fever/Mild Pain (1-3) Albuterol Sulfate 1 puff 03/06/20 21:09 03/19/20 08:11 Proventil Hfa INH 1 puff Q8H PRN Administration Wheezing Atorvastatin Calcium 40 mg 03/19/20 21:00 03/24/20 19:25 Lipitor PO 40 mg HS SHANIKA Administration Calcium/Vitamin D 1 tab 03/24/20 17:00 03/25/20 09:13 Caltrate 600 + Vit D PO Not Given BID-WM SHANIKA Carvedilol 12.5 mg 03/18/20 17:00 03/25/20 09:13 Coreg PO Not Given BID-WM SHANIKA Dexamethasone 6 mg 03/25/20 08:00 03/25/20 09:13 Decadron PO Not Given QAM-WM SHANIKA Hydralazine HCl 10 mg 03/23/20 09:30 03/23/20 20:10 Apresoline SLOW IVP 10 mg PRN PRN Administration SBP > 150 Insulin Human Lispro 0 units 03/06/20 02:05 03/25/20 12:45 Humalog SC 4 unit .MILD SLIDING SCALE PRN Administration Mild Correctional Scale Mometasone Furoate/Formoterol Fumar 2 puff 03/07/20 06:30 03/24/20 19:25 Dulera 200 Mcg/5 Mcg Inhaler INH Not Given BID-RT [facility] Pantoprazole Sodium 40 mg 03/11/20 09:00 03/25/20 09:13 Protonix PO Not Given DAILY [facility] Sodium Bicarbonate 650 mg 03/24/20 21:00 03/25/20 09:13 Bicarbonate, Sodium PO Not Given TID [facility] Sodium Chloride 10 ml 03/06/20 09:00 03/25/20 09:13 Flush - Normal Saline IVF Not Given Q12HR [facility] Hosp A/P - Plan (1) Pneumonia due to COVID-19 virus Code(s): U07.1 - COVID-19; J12.89 - OTHER VIRAL PNEUMONIA Status: Acute (2) MESFIN (acute kidney injury) Code(s): N17.9 - ACUTE KIDNEY FAILURE, UNSPECIFIED Status: Acute (3) Acute respiratory failure with hypoxia Code(s): J96.01 - ACUTE RESPIRATORY FAILURE WITH HYPOXIA Status: Acute (4) Atrial fibrillation with rapid ventricular response Code(s): I48.91 - UNSPECIFIED ATRIAL FIBRILLATION Status: Acute (5) DM2 (diabetes mellitus, type 2) Status: Acute (6) HTN (hypertension) Code(s): I10 - ESSENTIAL (PRIMARY) HYPERTENSION Status: Acute - Plan COVID PNA--repeat test of 25th - came back +ve. bipap at night while on the floor tapering steroid dose. ------> now on decadron 2 mg daily prior test at [facility] ER +ve. ----repeat test of 25th - came back +ve. Afib -rate cont'd w..coreg--puse in 90s, inc'd coreg dose slightly -AC w eliquis. Mesfin/ATN --TRANSIENT DIALYSIS turned out to be likely cw as m/w/f schedule. Needs outpt sleep study. sister Carter Esqueda [phone] Leukocytosis --recent COVID, last few days it was ok, today it is high. on decadron. -afebrile, clinically looks good. HD today/sunday Plan for dc in am, if cont'd stability. -pt has femoral access for transient dialysis - looks he needs ongoing HD--- ie needs tunnel cath. -he is voiding, but Cr still around 9 his outpt dialysis has to be set up, but then he needs tunnel catheter, which cannot be placed until COVID is negative. will check the COVID again, and if negative, may approach sux to consider for tunnel cath placement -- may take few weeks - do we keep him here or home with ER visits for dialysis sister says that he needs to have outpt dialysis to be setup -c/s CM to stream line these- whether sister would be able to provide transport or keep him atleast until see 2nd COVID test result. pt cannot even go home as he has femoral line. until COVID negative and tunnel cath placed, pt likely has to stay here. pt is quite upset that he needs to stay further, and would be willing to go AMA. I called his sister and explained, and she seems to understand and said she would talk to the pt. Repeat COVID of +ve. cannot consult sux until COVID negative. 30 Chas gilbert called reg.. COVID pts getting surgery --- surgery has to decide on that for tunnel cath placement on this pt. -pending above workup. 1st Hypochloremic metab. acidosis - renal dz - on NaHCO3 suppl't--ordered 650 tid Hypocalcemia --again on ca suppl't Hypoxia - sats 92% in RA--he remained more or less 92 to 94% in the last few days in RA. leukocytosis --? clinically stable---on low dose decadron.-----------> increaesd to standard dose as may help with improving O2 sat -- will get CXR to follow up ESRD - GFR<10 -- tunnel cath placement planned for sunday. 2nd Leukocytosis --without bandemia -unclear why keep trending up, while pt is clinically doing ok/well. -- without any sn of infn.., this could be steroid induced. - CXR neg. afebrile -getting UA when he voids -empiric CTX as he needs to go for tunnel cath. - given the plan for tunnel cath, want to make sure, no occult infection. will c/s ID..
[2020-03-25] MEDS ORDERED: cefTRIAXone\\ROCEPHIN 1 GM in Sodium Chloride 0.9% 100 ML IVPB SCH (15:00)
[2020-03-25 16:40] LABS: Bacteria/HPF 2+ HPF (None Seen); Bilirubin Negative (Negative); Blood, Urine 1+ (Negative); Clarity Clear (Clear); Glucose, Urine (Dipstick) >=1000 mg/dL (Negative); Ketone, Urine Negative (Negative); Leukocyte Negative Leu/uL (Negative); Nitrite Negative (Negative); Protein, Urine (Dipstick) Greater than 600 mg/dL (Neg-Trace); Specific Gravity, Urine 1.028 (1.002-1.036); Squamous Epithelial 0-3 HPF (0-3); Urobilinogen Normal mg/dL (Less than 2); pH, Urine 6.5 (5.0-9.0)
[2020-03-25 16:44] LABS: Urine Culture Reflex Yes Yes
[2020-03-25] MEDS: Atorvastatin Calcium 40 MG TAB PO SCH (21:13)
--- NOTE | 2020-03-25 21:30 | CON ---
DATE OF CONSULTATION: 03/25/2020 REASON FOR CONSULTATION: Persistent leukocytosis. HISTORY OF PRESENT ILLNESS: A 44-year-old patient, who has a history of type 2 diabetes and hypertension and about 3 weeks before today, he developed general malaise, myalgias, and after a few days, he followed the advice of his sister and went to be checked at [facility]. They did a COVID test and it was positive. He also had atrial fibrillation with RVR. He was on 3 L of nasal cannula with saturating at 94%. So, he was admitted to [facility]. His initial findings included a temperature 98.1, pulse 97, respirations 22, BP 127/91, and O2 saturations 94 up to 4 L/minute. His heart rate is irregular. He is awake and alert and chest exam with a few inspiratory crackles. Chest x-ray with infiltrates described in the right lower lobe more like increased markings bilaterally. He never had a CT done other than a CT of the abdomen and pelvis, which was done on March 15. This was without contrast and it showed no obstructive uropathy. He did have lung parenchymal opacities consistent with COVID. So, the initial management included admission to [facility]. He was given IV antimicrobial therapy, diltiazem, and Lovenox. He was not given any specific treatment for COVID and he has developed progressively worsening renal dysfunction and Nephrology felt that the most likely reason was acute tubular necrosis, probably multifactorial, but certainly the COVID has probably contributed to it and in addition to his underlying factors. So, he end up having a Trialysis catheter placed, was dialyzed once partially and apparently the procedure was discontinued in the middle. He still has a pretty good urinary output and has absolutely no respiratory symptoms at the moment. Repeat chest x-ray yesterday showed no infiltrates. He is sitting in the bed, right now he is very pleasant and appears in no distress. No headaches. No shortness of breath. No cough. No back pain. No abdominal pain. Still has excellent urinary output. No joint symptoms. PAST MEDICAL HISTORY: Obesity, hypertension, and type 2 diabetes. PAST SURGICAL HISTORY: Negative. FAMILY HISTORY: Noncontributory. SOCIAL HISTORY: He is . 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 Never smoker in his life. Drinks occasionally. ALLERGIES: NONE. CURRENT MEDICATIONS: Include; 1. Tylenol. 2. Proventil. 3. Lipitor. 4. Coreg. 5. Ceftriaxone. 6. Decadron. 7. Glucagon. 8. Hydralazine. 9. Insulin. 10. Dulera. 11. Protonix. PHYSICAL EXAMINATION: VITAL SIGNS: He has been afebrile through the hospital stay. His O2 saturations started at 92, went up to 98, went down to 93, and now it is up to 96 and his O2 flow rate has ranged from 2 to up to 3 L, but now he is on room air and has been on room air since the . SKIN: Unremarkable. He has a Trialysis catheter localized to the right femoral area. No lymphadenopathy. HEENT: Not remarkable. No thyromegaly. LUNGS: Symmetric clear breath sounds. HEART: S1 and S2. Regular rate. No S3 or S4. ABDOMEN: Soft, not distended or tender. No ascites. No bladder distention. EXTREMITIES: No joint inflammatory activity. No edema. Moves extremities equally. Plantar responses are flexor. NEUROLOGIC: Cognitive function is perfectly intact. LABORATORY DATA: The white cell count started at 8.5, now is steadily going up, it is now at 22.4. His D-dimer 3.91. A pH of 7.22 on 03/16, has not been repeated since. His creatinine is at 0.87. Transaminases normal. CRP is 0.71. Ferritin is 1291. These are the only measurements obtained in this admission and hepatitis serology negative except for the C, which was equivocal. The COVID-19 PCR was detected x2. ASSESSMENT: 1. Obesity, type 2 diabetes, hypertension, and COVID pneumonia with onset more than 21 days ago. 2. Acute renal failure probably secondary to acute tubular necrosis, possibility of chronic nephropathy due to diabetes mellitus/hypertension with superimposed COVID infection and then precipitation of the progression of renal insufficiency to advanced stage. The patient has been scheduled for a cuffed tunneled hemodialysis catheter, but hopefully he will improve his renal function in the ensuing weeks. DISCUSSION: It looks like the patient has been on Decadron since the March 10 and the white cell count was at 8.5 and then on the was still 8.5. The next white cell count was drawn on the , which was 13 and it is steadily going up, so I think that the corticosteroid has a role in this. I would recommend discontinuing Decadron at this point. Discontinuing also the Rocephin. Monitor the progress of his neutrophil counts in the next few days. Hopefully, his renal function will improve and allow him to be independent from hemodialysis. I think that he has now recovered from his COVID infection and I do not foresee any further issues with his respiratory status going forward. Job ID: [id number]
[2020-03-26] MEDS: HumaLOG 300 UNITS/3 ML VIAL SC PRN ×4 (05:03→20:53)
[2020-03-26] MEDS: Mometasone 200 MCG/Formoterol 5 MCG 120 PUFF INHALER INH SCH (06:30)
[2020-03-26 06:55] LABS: #Basophils 0.2 thou/uL (0.0-0.2); #Lymphocytes 0.3 thou/uL (1.20-3.40); #Monocytes 1.1 thou/uL (0.11-0.59); #Neutrophils 19.8 thou/uL (1.40-6.50); %Basophils 0.8 % (0.0-1.0); %Eosinophils 0.2 % (0.0-10.0); %Lymphocytes 1.5 % (21.0-51.0); %Monocytes 5.3 % (0.0-10.0); %Neutrophils 92.3 % (42.0-75.0); Anisocytosis SLIGHT = 6-15 cells (100X) (0-5/hpf); Hemoglobin 15.5 g/dL (14.0-18.0); MDiff Complete? YES; Mean Corpuscular HGB CONC 30.2 g/dL (32.0-36.0); Mean Corpuscular Hemoglobin 27.3 pg (27.0-31.0); Mean Corpuscular Volume 90.6 fL (78.0-98.0); Mean Platelet Volume 11.7 fL (7.4-10.4); Platelet Count 136 thou/uL (130-400); RBC Distribution Width 17.8 % (11.5-14.5); Red Blood Cell (RBC) Count 5.66 mill/uL (4.70-6.10); White Blood Cell (WBC) Count 21.5 thou/uL (4.8-10.8)
[2020-03-26] MEDS: Sodium Bicarbonate Tab 325 MG TAB PO SCH ×3 (08:44→20:52)
[2020-03-26] MEDS: Carvedilol 6.25 MG TAB PO SCH ×2 (08:45→15:51)
[2020-03-26] MEDS: Calcium Carbonate 600 MG + Vit D TAB PO SCH ×2 (08:45→15:51)
--- NOTE | 2020-03-26 12:01 | PRG ---
DATE OF SERVICE: 03/26/2020 SUBJECTIVE: A 44-year-old gentleman, being seen for end-stage renal disease. The patient denied nausea, vomiting, or chest pain. OBJECTIVE: General: The patient is awake and alert. Vital Signs: Afebrile, pulse 82, breathing at 16, blood pressure 129/88. HEENT: Head normocephalic and atraumatic. Eyes intact, no ulcers. Nose intact, no ulcers. Ears intact, no ulcers. Neck: Supple. No JVD. Chest: Symmetrical and clear. Cardiovascular: Shows S1 and S2, no rub, no murmur. Gastrointestinal: Abdomen is soft, bowel sounds positive. Extremities: Show no edema or ulcers. Skin: Shows no rash or petechiae. Musculoskeletal: Shows no joint swelling or stiffness. Genitourinary: Shows no Albarran or CVA tenderness. Neurologic: Motor intact. Cranial nerves intact. LABORATORY DATA: Hemoglobin is 15. Creatinine is pending. ASSESSMENT: 1. Chronic kidney disease stage 5. Recheck labs. 2. Hypertension, stable. 3. Anemia, stable. 4. Medication based on GFR appropriate. Job ID: [id number]
[2020-03-26 12:47] LABS: Calcium 7.8 mg/dL (7.8-10.44); Chloride 102 mmol/L (98-107); Glucose 254 mg/dL (70-105); Potassium 4.5 mmol/L (3.5-5.1); Sodium 135 mmol/L (136-145)
[2020-03-26 12:49] LABS: Anion Gap 18 mmol/L (10-20); Carbon Dioxide 20 mmol/L (22-29)
[2020-03-26 12:51] LABS: Calc. Creatinine Clearance 19 mL/min (70-130); Estimated GFR-MDRD 8
[2020-03-26 12:52] LABS: BUN (Urea Nitrogen) 99 mg/dL (8.9-20.6)
--- NOTE | 2020-03-26 13:23 | PDOC.HOSPP ---
- Subjective Encounter Date: 03/26/20 Encounter Time: 10:40 Subjective: pt seen this am. and talk to him at length. he is voiding well, he has no issues of SOB or cough. his Cr 8.78 and wbcs slightly lessaround 21.5. - Objective Vital Signs & Weight: Vital Signs (12 hours) Temp Pulse Resp BP Pulse Ox 03/26/20 09:00 97.3 F L 88 18 129/88 95 Weight Admit Weight 278 lb Weight 278 lb 3.574 oz Most Recent Monitor Data Heart Rate from ECG 106 NIBP 134/112 NIBP BP-Mean 119 Respiration from ECG 21 SpO2 95 I&O: 03/25/20 03/26/20 03/27/20 06:59 06:59 06:59 Intake Total 800 Balance 800 Result Diagrams: 03/26/20 05:29 03/26/20 12:23 Additional Labs: Accuchecks 03/26/20 03/26/20 03/25/20 10:36 04:54 21:21 POC Glucose 278 H 216 H 231 H 03/25/20 16:12 POC Glucose 320 H Hospitalist ROS - Medication Medications: Active Medications Generic Name Dose Route Start Last Admin Trade Name Freq PRN Reason Stop Dose Admin Acetaminophen 650 mg 03/06/20 01:56 03/06/20 11:59 Tylenol PO 650 mg Q4H PRN Administration Headache/Fever/Mild Pain (1-3) Albuterol Sulfate 1 puff 03/06/20 21:09 03/19/20 08:11 Proventil Hfa INH 1 puff Q8H PRN Administration Wheezing Atorvastatin Calcium 40 mg 03/19/20 21:00 03/25/20 21:13 Lipitor PO 40 mg HS SHANIKA Administration Calcium/Vitamin D 1 tab 03/24/20 17:00 03/26/20 08:45 Caltrate 600 + Vit D PO 1 tab BID-WM SHANIKA Administration Carvedilol 12.5 mg 03/18/20 17:00 03/26/20 08:45 Coreg PO 12.5 mg BID-WM SHANIKA Administration Hydralazine HCl 10 mg 03/23/20 09:30 03/23/20 20:10 Apresoline SLOW IVP 10 mg PRN PRN Administration SBP > 150 Insulin Human Lispro 0 units 03/06/20 02:05 03/26/20 12:36 Humalog SC 4 unit .MILD SLIDING SCALE PRN Administration Mild Correctional Scale Mometasone Furoate/Formoterol Fumar 2 puff 03/07/20 06:30 03/24/20 19:25 Dulera 200 Mcg/5 Mcg Inhaler INH Not Given BID-RT SHANIKA Pantoprazole Sodium 40 mg 03/11/20 09:00 03/26/20 08:45 Protonix PO 40 mg DAILY SHANIKA Administration Sodium Bicarbonate 650 mg 03/24/20 21:00 03/26/20 08:44 Bicarbonate, Sodium PO 650 mg TID SHANIKA Administration Sodium Chloride 10 ml 03/06/20 09:00 03/26/20 08:44 Flush - Normal Saline IVF 10 ml Q12HR SHANIKA Administration - Exam General Appearance: NAD, awake alert Eye: PERRL ENT: normocephalic atraumatic Neurological: no focal deficits Psychiatric: A&O x 3 Hosp A/P - Plan (1) Pneumonia due to COVID-19 virus Code(s): U07.1 - COVID-19; J12.89 - OTHER VIRAL PNEUMONIA Status: Acute (2) MESFIN (acute kidney injury) Code(s): N17.9 - ACUTE KIDNEY FAILURE, UNSPECIFIED Status: Acute (3) Acute respiratory failure with hypoxia Code(s): J96.01 - ACUTE RESPIRATORY FAILURE WITH HYPOXIA Status: Acute (4) Atrial fibrillation with rapid ventricular response Code(s): I48.91 - UNSPECIFIED ATRIAL FIBRILLATION Status: Acute (5) DM2 (diabetes mellitus, type 2) Status: Acute (6) HTN (hypertension) Code(s): I10 - ESSENTIAL (PRIMARY) HYPERTENSION Status: Acute - Plan COVID PNA--repeat test of 25th - came back +ve. bipap at night while on the floor tapering steroid dose. ------> now on decadron 2 mg daily prior test at [facility] ER +ve. ----repeat test of 25th - came back +ve. Afib -rate cont'd w..coreg--puse in 90s, inc'd coreg dose slightly -AC w eliquis. Mesfin/ATN --TRANSIENT DIALYSIS turned out to be likely cw as m/w/f schedule. Needs outpt sleep study. sister Carter Esqueda [phone] Leukocytosis --recent COVID, last few days it was ok, today it is high. on decadron. -afebrile, clinically looks good. HD today/sunday Plan for dc in am, if cont'd stability. -pt has femoral access for transient dialysis - looks he needs ongoing HD--- ie needs tunnel cath. -he is voiding, but Cr still around 9 his outpt dialysis has to be set up, but then he needs tunnel catheter, which cannot be placed until COVID is negative. will check the COVID again, and if negative, may approach sux to consider for tunnel cath placement -- may take few weeks - do we keep him here or home with ER visits for dialysis sister says that he needs to have outpt dialysis to be setup -c/s CM to stream line these- whether sister would be able to provide transport or keep him atleast until see 2nd COVID test result. pt cannot even go home as he has femoral line. until COVID negative and tunnel cath placed, pt likely has to stay here. pt is quite upset that he needs to stay further, and would be willing to go AMA. I called his sister and explained, and she seems to understand and said she would talk to the pt. Repeat COVID of +ve. cannot consult sux until COVID negative. 30 Chas gilbert called reg.. COVID pts getting surgery --- surgery has to decide on that for tunnel cath placement on this pt. -pending above workup. 1st Hypochloremic metab. acidosis - renal dz - on NaHCO3 suppl't--ordered 650 tid Hypocalcemia --again on ca suppl't Hypoxia - sats 92% in RA--he remained more or less 92 to 94% in the last few days in RA. leukocytosis --? clinically stable---on low dose decadron.-----------> increaesd to standard dose as may help with improving O2 sat -- will get CXR to follow up ESRD - GFR<10 -- tunnel cath placement planned for sunday. 2nd Leukocytosis --without bandemia -unclear why keep trending up, while pt is clinically doing ok/well. -- without any sn of infn.., this could be steroid induced. - CXR neg. afebrile -getting UA when he voids -empiric CTX as he needs to go for tunnel cath. - given the plan for tunnel cath, want to make sure, no occult infection. will c/s ID.. 3rd appreciate ID input Leukocytosis -- steorid induced. clinically better, so off steroid and abx. Tunnel cath placement -- on hold for today, as pt is voiding well and Cr improving.
[2020-03-26] MEDS: Atorvastatin Calcium 40 MG TAB PO SCH (20:52)
[2020-03-27] MEDS: Mometasone 200 MCG/Formoterol 5 MCG 120 PUFF INHALER INH SCH ×3 (06:30→19:49)
[2020-03-27 06:39] LABS: #Basophils 0.1 thou/uL (0.0-0.2); #Eosinphils 0.2 thou/uL (0.0-0.7); #Lymphocytes 1.5 thou/uL (1.20-3.40); #Monocytes 1.5 thou/uL (0.11-0.59); #Neutrophils 18.3 thou/uL (1.40-6.50); %Basophils 0.5 % (0.0-1.0); %Eosinophils 0.8 % (0.0-10.0); %Lymphocytes 6.7 % (21.0-51.0); %Neutrophils 85.1 % (42.0-75.0); Hemoglobin 16.4 g/dL (14.0-18.0); Mean Corpuscular Volume 90.9 fL (78.0-98.0); Mean Platelet Volume 11.6 fL (7.4-10.4); Platelet Count 112 thou/uL (130-400); RBC Distribution Width 17.6 % (11.5-14.5); Red Blood Cell (RBC) Count 5.65 mill/uL (4.70-6.10); White Blood Cell (WBC) Count 21.6 thou/uL (4.8-10.8)
[2020-03-27 07:15] LABS: Anion Gap 17 mmol/L (10-20); BUN (Urea Nitrogen) 106 mg/dL (8.9-20.6); Calc. Creatinine Clearance 20 mL/min (70-130); Calcium 7.5 mg/dL (7.8-10.44); Carbon Dioxide 17 mmol/L (22-29); Chloride 105 mmol/L (98-107); Estimated GFR-MDRD 8; Glucose 169 mg/dL (70-105); Potassium 5.2 mmol/L (3.5-5.1); Sodium 134 mmol/L (136-145)
[2020-03-27] MEDS: Sodium Bicarbonate Tab 325 MG TAB PO SCH ×3 (08:42→20:30)
[2020-03-27] MEDS: Calcium Carbonate 600 MG + Vit D TAB PO SCH ×2 (08:42→16:32)
[2020-03-27] MEDS: Carvedilol 6.25 MG TAB PO SCH ×2 (08:43→16:31)
--- NOTE | 2020-03-27 12:38 | PRG ---
DATE OF SERVICE: 03/27/2020 SUBJECTIVE: A 44-year-old male, being seen for acute kidney injury. The patient denied any nausea, vomiting, or chest pain. The patient is making urine. OBJECTIVE: GENERAL: The patient is awake and alert. VITAL SIGNS: Afebrile, pulse 74, breathing at 16, blood pressure 136/85. HEENT: Head normocephalic and atraumatic. Eyes intact, no ulcers. Nose intact, no ulcers. Ears intact, no ulcers. NECK: Supple. No JVD. CHEST: Symmetrical and clear. CARDIOVASCULAR: Shows S1 and S2, no rub, no murmur. GASTROINTESTINAL: Abdomen is soft, bowel sounds positive. EXTREMITIES: Show no edema or ulcers. SKIN: Shows no rash or petechiae. MUSCULOSKELETAL: Shows no joint swelling or stiffness. GENITOURINARY: Shows no Albarran or CVA tenderness. NEUROLOGIC: Motor intact. Cranial nerves intact. LABORATORY DATA: Reviewed. ASSESSMENT AND RECOMMENDATIONS: 1. Stage 5 chronic kidney disease. Renal function has improved. 2. Hypertension, stable. 3. Hyperkalemia. Recommend low-potassium diet. We will hold off on dialysis. We will re-evaluate as needed. Job ID: [id number]
[2020-03-27] MEDS: HumaLOG 300 UNITS/3 ML VIAL SC PRN ×3 (12:59→21:12)
--- NOTE | 2020-03-27 17:43 | PRG ---
DATE OF SERVICE: 03/27/2020 SUBJECTIVE: Feeling better. No headaches. No cough. No dyspnea. He has been afebrile for a while now. OBJECTIVE: VITAL SIGNS: Other vital signs are normal. O2 sats 95% on room air. GENERAL: Appears in no distress. Pleasant. LUNGS: Clear. HEART: S1-S2, regular rate. ABDOMEN: Soft, not distended. LABORATORY DATA: White cell count is at 21.6, hemoglobin 16.4, and platelets are 112. Creatinine 8.33. ASSESSMENT AND DISCUSSION: 1. Obesity. 2. Type 2 diabetes. 3. Hypertension. 4. COVID pneumonia, with onset 21 days ago, probably already resolved. 5. Acute renal failure secondary to acute tubular necrosis, probably multifactorial with prior CKD and then superimposed COVID infection, and then precipitation of renal insufficiency. Anyways, he has not been dialyzed and his urine output is steady. His electrolytes are being monitored by Dr. Wray. His last note from today indicates improvement in renal function and continuing to evaluate, hoping that he will not require immediate onset of chronic hemodialysis. Job ID: [id number] MTDD
--- NOTE | 2020-03-27 19:51 | PDOC.HOSPP ---
- Subjective Encounter Date: 03/27/20 Encounter Time: 10:00 Subjective: no overnight events. this morning, feeling well and has no complaints. Dialysis catheter placement postponed considering improvement in renal function; started on anticoag for p. afib. - Objective Vital Signs & Weight: Vital Signs (12 hours) Temp Pulse Resp BP BP Pulse Ox 03/27/20 16:31 136/85 03/27/20 08:00 97.7 F 84 16 136/85 95 Weight Admit Weight 278 lb Weight 278 lb 3.574 oz Most Recent Monitor Data Heart Rate from ECG 106 NIBP 134/112 NIBP BP-Mean 119 Respiration from ECG 21 SpO2 95 I&O: 03/26/20 03/27/20 03/28/20 06:59 06:59 06:59 Intake Total 800 1970 Output Total 480 Balance 800 1490 Result Diagrams: 03/27/20 06:26 03/27/20 06:26 Additional Labs: Accuchecks 03/27/20 03/27/20 13:06 05:10 POC Glucose 184 H 138 H Hospitalist ROS - Review of Systems Constitutional: denies: fever, chills, sweats, weakness, malaise, other Respiratory: denies: cough, dry, shortness of breath, hemoptysis, SOB with excertion, pleuritic pain, sputum, wheezing, other Cardiovascular: denies: chest pain, palpitations, orthopnea, paroxysmal noc. dyspnea, edema, light headedness, other Gastrointestinal: denies: nausea, vomiting, abdominal pain, diarrhea, constipation, melena, hematochezia, other Genitourinary: denies: dysuria, frequency, incontinence, hematuria, retention, other - Medication Medications: Active Medications Generic Name Dose Route Start Last Admin Trade Name Freq PRN Reason Stop Dose Admin Acetaminophen 650 mg 03/06/20 01:56 03/06/20 11:59 Tylenol PO 650 mg Q4H PRN Administration Headache/Fever/Mild Pain (1-3) Albuterol Sulfate 1 puff 03/06/20 21:09 03/19/20 08:11 Proventil Hfa INH 1 puff Q8H PRN Administration Wheezing Atorvastatin Calcium 40 mg 03/19/20 21:00 03/26/20 20:52 Lipitor PO 40 mg HS SHANIKA Administration Calcium/Vitamin D 1 tab 03/24/20 17:00 03/27/20 16:32 Caltrate 600 + Vit D PO 1 tab BID-WM SHANIKA Administration Carvedilol 12.5 mg 03/18/20 17:00 03/27/20 16:31 Coreg PO 12.5 mg BID-WM SHANIKA Administration Hydralazine HCl 10 mg 03/23/20 09:30 03/23/20 20:10 Apresoline SLOW IVP 10 mg PRN PRN Administration SBP > 150 Insulin Human Lispro 0 units 03/06/20 02:05 03/27/20 16:32 Humalog SC 3 unit .MILD SLIDING SCALE PRN Administration Mild Correctional Scale Mometasone Furoate/Formoterol Fumar 2 puff 03/07/20 06:30 03/27/20 19:49 Dulera 200 Mcg/5 Mcg Inhaler INH Not Given BID-RT SHANIKA Pantoprazole Sodium 40 mg 03/11/20 09:00 03/27/20 08:43 Protonix PO 40 mg DAILY SHANIKA Administration Sodium Bicarbonate 650 mg 03/24/20 21:00 03/27/20 16:30 Bicarbonate, Sodium PO 650 mg TID SHANIKA Administration Sodium Chloride 10 ml 03/06/20 09:00 03/27/20 08:43 Flush - Normal Saline IVF 10 ml Q12HR SHANIKA Administration - Exam General Appearance: NAD, awake alert Neck: no JVD Heart: RRR, no rubs Respiratory: CTAB, no wheezes, no rales, no ronchi Gastrointestinal: soft, non-tender, non-distended, normal bowel sounds Extremities: no edema Psychiatric: normal affect, normal behavior, A&O x 3 Hosp A/P - Plan #MESFIN on CKD due to ATN baseline Cr ~ 1 (03/08) improving dialysis postponed as per nephrology continue to follow I/O strictly and renal function #COVID pneumonia (resolved) #p. afib -started lovenox 120mg SQ daily full code ELOS: 3-4 nights
[2020-03-27] MEDS: Enoxaparin Sodium 120 MG/0.8 ML SYRINGE SC SCH (20:30)
[2020-03-27] MEDS: Atorvastatin Calcium 40 MG TAB PO SCH (20:31)
[2020-03-28] MEDS: Mometasone 200 MCG/Formoterol 5 MCG 120 PUFF INHALER INH SCH ×2 (05:33→19:27)
[2020-03-28 06:18] LABS: Phosphorus 8.6 mg/dL (2.3-4.7)
[2020-03-28 06:19] LABS: Anion Gap 17 mmol/L (10-20); BUN (Urea Nitrogen) 106 mg/dL (8.9-20.6); Calc. Creatinine Clearance 20 mL/min (70-130); Calcium 7.3 mg/dL (7.8-10.44); Carbon Dioxide 19 mmol/L (22-29); Chloride 103 mmol/L (98-107); Estimated GFR-MDRD 8; Glucose 129 mg/dL (70-105); Magnesium 1.8 mg/dL (1.6-2.6); Potassium 3.9 mmol/L (3.5-5.1); Sodium 135 mmol/L (136-145)
[2020-03-28 08:40] LABS: #Basophils 0.1 thou/uL (0.0-0.2); #Lymphocytes 0.9 thou/uL (1.20-3.40); #Monocytes 1.1 thou/uL (0.11-0.59); #Neutrophils 13.5 thou/uL (1.40-6.50); %Basophils 0.4 % (0.0-1.0); %Eosinophils 0.3 % (0.0-10.0); %Lymphocytes 5.9 % (21.0-51.0); %Neutrophils 86.4 % (42.0-75.0); Large Platelets SLIGHT; MDiff Complete? YES; Mean Corpuscular HGB CONC 32.2 g/dL (32.0-36.0); Mean Corpuscular Hemoglobin 29.1 pg (27.0-31.0); Mean Corpuscular Volume 90.5 fL (78.0-98.0); Mean Platelet Volume 12.2 fL (7.4-10.4); Platelet Count 96 thou/uL (130-400); Platelet Morphology Comment Appears Decreased; RBC Distribution Width 17.5 % (11.5-14.5); Red Blood Cell (RBC) Count 5.17 mill/uL (4.70-6.10); White Blood Cell (WBC) Count 15.7 thou/uL (4.8-10.8)
[2020-03-28] MEDS: Sodium Bicarbonate Tab 325 MG TAB PO SCH ×3 (08:51→21:10)
[2020-03-28] MEDS: Carvedilol 6.25 MG TAB PO SCH ×2 (08:51→16:16)
[2020-03-28] MEDS: Calcium Carbonate 600 MG + Vit D TAB PO SCH ×2 (08:51→16:16)
--- NOTE | 2020-03-28 11:23 | PRG ---
DATE OF SERVICE: 03/28/2020 SUBJECTIVE: A 44-year-old gentleman being seen for acute kidney injury, who is dialysis dependent. The patient denies any nausea, vomiting, or chest pain. OBJECTIVE: GENERAL: The patient is awake and alert. VITAL SIGNS: Afebrile, pulse 77, breathing 16, and blood pressure 136/85. HEENT: Head normocephalic and atraumatic. Eyes intact, no ulcers. Nose intact, no ulcers. Ears intact, no ulcers. NECK: Supple. No JVD. CHEST: Symmetrical and clear. CARDIOVASCULAR: Shows S1 and S2, no rub, no murmur. GASTROINTESTINAL: Abdomen is soft, bowel sounds positive. EXTREMITIES: Show no edema or ulcers. SKIN: Shows no rash or petechiae. MUSCULOSKELETAL: Shows no joint swelling or stiffness. GENITOURINARY: Shows no Albarran or CVA tenderness. NEUROLOGIC: Motor intact. Cranial nerves intact. LABORATORY DATA: Hemoglobin 15. Potassium is 3.9 and creatinine 8.4. ASSESSMENT AND PLAN: 1. Acute kidney injury with chronic kidney disease stage 5. No major improvement. The patient is nonoliguric. The patient's BUN has gradually risen. We will plan dialysis tomorrow. 2. Hypertension, stable. 3. Medication based on GFR appropriate. Job ID: [id number]
--- NOTE | 2020-03-28 16:05 | PDOC.HOSPP ---
- Subjective Encounter Date: 03/28/20 Encounter Time: 11:00 Subjective: no overnight events. 0.8L output overnight, nonoliguric but worsening azotemia. Per nephrology, requires dialysis. stopped lovenox pending dialysis catheter placement. - Objective Vital Signs & Weight: Vital Signs (12 hours) Temp Pulse Resp BP BP Pulse Ox 03/28/20 08:51 136/85 03/28/20 08:00 97.7 F 66 16 115/79 92 L Weight Admit Weight 278 lb Weight 278 lb 3.574 oz Most Recent Monitor Data Heart Rate from ECG 106 NIBP 134/112 NIBP BP-Mean 119 Respiration from ECG 21 SpO2 95 I&O: 03/27/20 03/28/20 03/29/20 06:59 06:59 06:59 Intake Total 2370 480 Output Total 1280 Balance 1090 480 Result Diagrams: 03/28/20 05:34 03/28/20 05:34 Additional Labs: Accuchecks 03/28/20 03/28/20 03/27/20 12:59 04:44 20:39 POC Glucose 126 H 115 H 176 H 03/27/20 16:43 POC Glucose 201 H Hospitalist ROS - Review of Systems Constitutional: denies: fever, chills, sweats, weakness, malaise, other Respiratory: denies: cough, dry, shortness of breath, hemoptysis, SOB with excertion, pleuritic pain, sputum, wheezing, other Cardiovascular: denies: chest pain, palpitations, orthopnea, paroxysmal noc. dyspnea, edema, light headedness, other Gastrointestinal: denies: nausea, vomiting, abdominal pain, diarrhea, constipation, melena, hematochezia, other - Medication Medications: Active Medications Generic Name Dose Route Start Last Admin Trade Name Freq PRN Reason Stop Dose Admin Acetaminophen 650 mg 03/06/20 01:56 03/06/20 11:59 Tylenol PO 650 mg Q4H PRN Administration Headache/Fever/Mild Pain (1-3) Albuterol Sulfate 1 puff 03/06/20 21:09 03/19/20 08:11 Proventil Hfa INH 1 puff Q8H PRN Administration Wheezing Atorvastatin Calcium 40 mg 03/19/20 21:00 03/27/20 20:31 Lipitor PO 40 mg HS SHANIKA Administration Calcium/Vitamin D 1 tab 07/01/20 17:00 03/28/20 08:51 Caltrate 600 + Vit D PO 1 tab BID-WM SHANIKA Administration Carvedilol 12.5 mg 03/18/20 17:00 03/28/20 08:51 Coreg PO 12.5 mg BID-WM SHANIKA Administration Enoxaparin Sodium 120 mg 03/27/20 21:00 03/27/20 20:30 Lovenox SC 120 mg 2100 SHANIKA Administration Hydralazine HCl 10 mg 03/23/20 09:30 03/23/20 20:10 Apresoline SLOW IVP 10 mg PRN PRN Administration SBP > 150 Insulin Human Lispro 0 units 03/06/20 02:05 03/27/20 21:12 Humalog SC 2 unit .MILD SLIDING SCALE PRN Administration Mild Correctional Scale Mometasone Furoate/Formoterol Fumar 2 puff 03/07/20 06:30 03/28/20 05:33 Dulera 200 Mcg/5 Mcg Inhaler INH 2 puff BID-RT SHANIKA Administration Pantoprazole Sodium 40 mg 03/11/20 09:00 03/28/20 08:51 Protonix PO 40 mg DAILY SHANIKA Administration Sodium Bicarbonate 650 mg 03/24/20 21:00 03/28/20 08:51 Bicarbonate, Sodium PO 650 mg TID SHANIKA Administration Sodium Chloride 10 ml 03/06/20 09:00 03/28/20 08:51 Flush - Normal Saline IVF 10 ml Q12HR SHANIKA Administration - Exam General Appearance: NAD, awake alert Neck: no JVD Heart: RRR, no murmur, no gallops, no rubs Respiratory: CTAB, no wheezes, no rales, no ronchi Gastrointestinal: soft, non-tender, non-distended, normal bowel sounds Extremities - other findings: b/l pitting edema to thigh level Psychiatric: normal affect, normal behavior, A&O x 3 Hosp A/P - Plan #nonoliguric MESFIN #ATN unchanged, worsening azotemia per nephrology will undergo dialysis (03/28); stopped lovenox pending catheter placement #COVID pneumonia (resolved) #p. afib -hold lovenox 120mg SQ daily as abovementioned full code ELOS: 3-4 nights
[2020-03-28] MEDS: HumaLOG 300 UNITS/3 ML VIAL SC PRN (16:18)
[2020-03-28] MEDS: Atorvastatin Calcium 40 MG TAB PO SCH (21:10)
[2020-03-29 05:56] LABS: Anion Gap 19 mmol/L (10-20); BUN (Urea Nitrogen) 108 mg/dL (8.9-20.6); Calc. Creatinine Clearance 20 mL/min (70-130); Calcium 7.4 mg/dL (7.8-10.44); Carbon Dioxide 18 mmol/L (22-29); Chloride 103 mmol/L (98-107); Estimated GFR-MDRD 9; Glucose 155 mg/dL (70-105); Potassium 4.5 mmol/L (3.5-5.1); Sodium 135 mmol/L (136-145)
[2020-03-29] MEDS: HumaLOG 300 UNITS/3 ML VIAL SC PRN (06:04)
[2020-03-29] MEDS: Mometasone 200 MCG/Formoterol 5 MCG 120 PUFF INHALER INH SCH ×2 (06:06→18:30)
--- NOTE | 2020-03-29 09:32 | PDOC.HOSPP ---
- Subjective Encounter Date: 03/29/20 Encounter Time: 09:00 Subjective: no overnight events. ~1L output overnight and creatinine downtrending. this morning, feels well and has no complaints. - Objective Vital Signs & Weight: Vital Signs (12 hours) Temp Pulse Resp BP Pulse Ox 03/29/20 08:08 97.7 F 81 16 120/90 94 L 03/29/20 08:00 94 L 03/29/20 06:06 68 19 03/29/20 04:00 97.4 F L 68 17 140/95 H 92 L Weight Admit Weight 278 lb Weight 278 lb 3.574 oz Most Recent Monitor Data Heart Rate from ECG 106 NIBP 134/112 NIBP BP-Mean 119 Respiration from ECG 21 SpO2 95 I&O: 03/28/20 03/29/20 03/30/20 06:59 06:59 06:59 Intake Total 2370 1930 Output Total 1280 1090 Balance 1090 840 Result Diagrams: 03/28/20 05:34 03/29/20 05:32 Additional Labs: Accuchecks 03/28/20 03/28/20 03/28/20 21:23 16:30 12:59 POC Glucose 177 H 183 H 126 H Hospitalist ROS - Review of Systems Constitutional: denies: fever, chills, sweats Respiratory: denies: cough, dry, shortness of breath Cardiovascular: reports: edema. denies: chest pain, palpitations, orthopnea, paroxysmal noc. dyspnea Gastrointestinal: denies: nausea, vomiting, abdominal pain, diarrhea Genitourinary: denies: dysuria, hematuria - Medication Medications: Active Medications Generic Name Dose Route Start Last Admin Trade Name Freq PRN Reason Stop Dose Admin Acetaminophen 650 mg 03/06/20 01:56 03/06/20 11:59 Tylenol PO 650 mg Q4H PRN Administration Headache/Fever/Mild Pain (1-3) Albuterol Sulfate 1 puff 03/06/20 21:09 03/19/20 08:11 Proventil Hfa INH 1 puff Q8H PRN Administration Wheezing Atorvastatin Calcium 40 mg 03/19/20 21:00 03/28/20 21:10 Lipitor PO 40 mg HS SHANIKA Administration Calcium/Vitamin D 1 tab 03/24/20 17:00 03/28/20 16:16 Caltrate 600 + Vit D PO 1 tab BID-WM SHANIKA Administration Carvedilol 12.5 mg 03/18/20 17:00 03/28/20 16:16 Coreg PO 12.5 mg BID-WM SHANIKA Administration Enoxaparin Sodium 120 mg 03/27/20 21:00 03/27/20 20:30 Lovenox SC 120 mg 2100 SHANIKA Administration Hydralazine HCl 10 mg 03/23/20 09:30 03/23/20 20:10 Apresoline SLOW IVP 10 mg PRN PRN Administration SBP > 150 Insulin Human Lispro 0 units 03/06/20 02:05 03/29/20 06:04 Humalog SC 2 unit .MILD SLIDING SCALE PRN Administration Mild Correctional Scale Mometasone Furoate/Formoterol Fumar 2 puff 03/07/20 06:30 03/29/20 06:06 Dulera 200 Mcg/5 Mcg Inhaler INH 2 puff BID-RT SHANIKA Administration Pantoprazole Sodium 40 mg 03/11/20 09:00 03/28/20 08:51 Protonix PO 40 mg DAILY SHANIKA Administration Sodium Bicarbonate 650 mg 03/24/20 21:00 03/28/20 21:10 Bicarbonate, Sodium PO 650 mg TID SHANIKA Administration Sodium Chloride 10 ml 03/06/20 09:00 03/28/20 21:11 Flush - Normal Saline IVF 10 ml Q12HR SHANIKA Administration - Exam General Appearance: NAD, awake alert Neck: no JVD Heart: RRR, no murmur, no gallops, no rubs Respiratory: CTAB, no wheezes, no rales, no ronchi Gastrointestinal: soft, non-distended, normal bowel sounds Extremities: 2+ LE edema Extremities - other findings: right femoral catheter with no surrounding swelling or erythema at access s Psychiatric: normal affect, normal behavior, A&O x 3 Hosp A/P - Plan #nonoliguric MESFIN #ATN creatinine downtrending; ~1L output over 12 hours yesterday (03/28); no records overnight per nephrology will undergo dialysis (03/28); will clarify if intended to place catheter or continue through femoral access; if no catheter, resume lovenox -strict I/O -defer decision regarding dialysis to nephrology #p. afib -hold lovenox 120mg SQ daily as abovementioned #blisters -open blisters on lower back likely due to shear friction with mattress -wound care consulted #COVID pneumonia (resolved) full code ELOS: 3-4 nights
[2020-03-29] MEDS: Calcium Carbonate 600 MG + Vit D TAB PO SCH ×2 (09:38→16:07)
[2020-03-29] MEDS: Carvedilol 6.25 MG TAB PO SCH ×2 (09:38→16:07)
[2020-03-29] MEDS: Sodium Bicarbonate Tab 325 MG TAB PO SCH ×3 (09:38→20:06)
--- NOTE | 2020-03-29 11:41 | PRG ---
DATE OF SERVICE: 03/29/2020 SUBJECTIVE: The patient is on COVID isolation. OBJECTIVE: VITAL SIGNS: Temperature 97.7, pulse 81, respiratory rate 16, and blood pressure 120/90. LABORATORY DATA: Potassium 4.5, BUN is 108, and creatinine is 8.1. ASSESSMENT AND PLAN: 1. Acute kidney injury on chronic kidney disease, stage 3. Dialysis dependent. Currently, the patient is making urine and nonoliguric. We will continue to monitor. If labs were worsening tomorrow, might need dialysis. 2. Hypernatremia. 3. Hyperkalemia. 4. Acidosis. 5. COVID-19 infection. We will plan for dialysis tomorrow. Monitor urine output closely. Job ID: [id number]
[2020-03-29] MEDS: Atorvastatin Calcium 40 MG TAB PO SCH (20:07)
[2020-03-29] MEDS: Enoxaparin Sodium 120 MG/0.8 ML SYRINGE SC SCH (20:09)
[2020-03-30 05:36] LABS: Anion Gap 18 mmol/L (10-20); BUN (Urea Nitrogen) 106 mg/dL (8.9-20.6); Calc. Creatinine Clearance 20 mL/min (70-130); Calcium 7.5 mg/dL (7.8-10.44); Carbon Dioxide 20 mmol/L (22-29); Chloride 103 mmol/L (98-107); Estimated GFR-MDRD 9; Glucose 120 mg/dL (70-105); Potassium 4.1 mmol/L (3.5-5.1); Sodium 137 mmol/L (136-145)
[2020-03-30] MEDS: Mometasone 200 MCG/Formoterol 5 MCG 120 PUFF INHALER INH SCH ×2 (06:21→18:18)
[2020-03-30] MEDS: Calcium Carbonate 600 MG + Vit D TAB PO SCH ×2 (08:07→16:15)
[2020-03-30] MEDS: Carvedilol 6.25 MG TAB PO SCH ×2 (08:07→16:15)
[2020-03-30] MEDS: Sodium Bicarbonate Tab 325 MG TAB PO SCH ×3 (08:08→19:48)
[2020-03-30] MEDS ORDERED: Activase 2 MG VIAL CATH SCH (09:15)
[2020-03-30] MEDS ORDERED: Sterile Water 10 ML VIAL IVP SCH (09:15)
[2020-03-30] MEDS ORDERED: Heparin 10,000 UNITS/ 10 ML VIAL ONE (09:24)
--- NOTE | 2020-03-30 16:26 | PRG ---
DATE OF SERVICE: 03/30/2020 SUBJECTIVE: The patient is on COVID isolation. OBJECTIVE: VITAL SIGNS: Temperature 97.8, pulse 62, respiratory rate 18, and blood pressure 119/84. LABORATORY DATA: Potassium 4.1, BUN is 106, and creatinine is 8.05. ASSESSMENT AND PLAN: 1. Acute kidney injury on chronic kidney disease, stage 3, nonoliguric. He made 2,700 of urine yesterday, but BUN remains elevated, given additional dialysis today. 2. Hypernatremia. 3. Hyperkalemia, better. 4. Acidosis. 5. COVID-19 infection. Given another dose of dialysis his catheter not working, but with his improvement in urine output, his labs should be getting better. We will continue to monitor. Job ID: [id number]
[2020-03-30] MEDS: HumaLOG 300 UNITS/3 ML VIAL SC PRN (16:31)
[2020-03-30] MEDS: Enoxaparin Sodium 120 MG/0.8 ML SYRINGE SC SCH (18:53)
--- NOTE | 2020-03-30 18:53 | PDOC.HOSPP ---
- Subjective Encounter Date: 03/30/20 Encounter Time: 10:00 Subjective: No overnight events. On encounter, undergoing hemodialysis. Denies lightheadedness, dizziness, chest pain, palpitations, dyspnea. - Objective Vital Signs & Weight: Vital Signs (12 hours) Temp Pulse Resp BP Pulse Ox 03/30/20 18:18 78 16 94 L 03/30/20 16:12 97.5 F L 82 18 126/84 94 L 03/30/20 08:10 97.8 F 62 18 119/84 95 Weight Admit Weight 278 lb Weight 278 lb 3.574 oz Most Recent Monitor Data Heart Rate from ECG 106 NIBP 134/112 NIBP BP-Mean 119 Respiration from ECG 21 SpO2 95 I&O: 03/29/20 03/30/20 03/31/20 06:59 06:59 06:59 Intake Total 1930 700 735 Output Total 1090 2750 750 Balance 0 -2049 - Result Diagrams: 03/28/20 05:34 03/30/20 04:59 Additional Labs: Accuchecks 03/30/20 03/30/20 03/30/20 16:23 12:34 05:52 POC Glucose 231 H 100 114 H 03/29/20 20:20 POC Glucose 158 H Hospitalist ROS - Review of Systems Constitutional: denies: fever, chills, sweats Respiratory: denies: cough, dry, shortness of breath Cardiovascular: denies: chest pain, palpitations, orthopnea Gastrointestinal: denies: nausea, vomiting, abdominal pain - Medication Medications: Active Medications Generic Name Dose Route Start Last Admin Trade Name Freq PRN Reason Stop Dose Admin Acetaminophen 650 mg 03/06/20 01:56 03/06/20 11:59 Tylenol PO 650 mg Q4H PRN Administration Headache/Fever/Mild Pain (1-3) Albuterol Sulfate 1 puff 03/06/20 21:09 03/19/20 08:11 Proventil Hfa INH 1 puff Q8H PRN Administration Wheezing Atorvastatin Calcium 40 mg 03/19/20 21:00 03/29/20 20:07 Lipitor PO 40 mg HS SHANIKA Administration Calcium/Vitamin D 1 tab 03/24/20 17:00 03/30/20 16:15 Caltrate 600 + Vit D PO 1 tab BID-WM SHANIKA Administration Carvedilol 12.5 mg 03/18/20 17:00 03/30/20 16:15 Coreg PO 12.5 mg BID-WM SHANIKA Administration Enoxaparin Sodium 120 mg 03/27/20 21:00 03/29/20 20:09 Lovenox SC Not Given 2100 SHANIKA Heparin Sodium (Porcine) 500 units 03/30/20 11:31 03/30/20 12:20 Heparin Lock Flush 100 Units/Ml IV 5 ml PRN PRN Administration DISLYSIS CATH LOCK Hydralazine HCl 10 mg 03/23/20 09:30 03/23/20 20:10 Apresoline SLOW IVP 10 mg PRN PRN Administration SBP > 150 Insulin Human Lispro 0 units 03/06/20 02:05 03/30/20 16:31 Humalog SC 3 unit .MILD SLIDING SCALE PRN Administration Mild Correctional Scale Mometasone Furoate/Formoterol Fumar 2 puff 03/07/20 06:30 03/30/20 18:18 Dulera 200 Mcg/5 Mcg Inhaler INH 2 puff BID-RT SHANIKA Administration Pantoprazole Sodium 40 mg 03/11/20 09:00 03/30/20 14:12 Protonix PO 40 mg DAILY SHANIKA Administration Sodium Bicarbonate 650 mg 03/24/20 21:00 03/30/20 14:12 Bicarbonate, Sodium PO 650 mg TID SHANIKA Administration Sodium Chloride 10 ml 03/06/20 09:00 03/30/20 08:08 Flush - Normal Saline IVF Not Given Q12HR SHANIKA Sodium Chloride 10 ml 03/06/20 04:01 03/30/20 12:19 Flush - Normal Saline IVF 10 ml PRN PRN Administration Saline Flush - Exam General Appearance: NAD, awake alert Neck: no JVD Heart: RRR, no murmur, no gallops Respiratory: CTAB, no wheezes, no rales, no ronchi Gastrointestinal: soft, non-tender, non-distended, normal bowel sounds Extremities: 2+ LE edema Extremities - other findings: unchanged Skin - other findings: multiple open blisters with overlying tranparent dressings, noninfected Psychiatric: normal affect, normal behavior, A&O x 3 Hosp A/P - Plan #nonoliguric MESFIN #ATN 600cc removed via dialysis (03/30) Renal function recovery s/p ATN may be delayed by weeks -strict I/O -monitor GFR #p. afib -no pending catheter placement. Resume eliquis #blisters -open blisters on lower back likely due to shear friction wound care onboard #COVID pneumonia (resolved) full code ELOS: 3-4 nights
[2020-03-30] MEDS: Atorvastatin Calcium 40 MG TAB PO SCH (19:48)
[2020-03-31 06:53] LABS: Anion Gap 16 mmol/L (10-20); BUN (Urea Nitrogen) 91 mg/dL (8.9-20.6); Calc. Creatinine Clearance 23 mL/min (70-130); Calcium 7.4 mg/dL (7.8-10.44); Carbon Dioxide 22 mmol/L (22-29); Chloride 101 mmol/L (98-107); Estimated GFR-MDRD 10; Glucose 223 mg/dL (70-105); Potassium 3.5 mmol/L (3.5-5.1); Sodium 135 mmol/L (136-145)
[2020-03-31] MEDS: Mometasone 200 MCG/Formoterol 5 MCG 120 PUFF INHALER INH SCH ×2 (06:57→18:41)
[2020-03-31] MEDS: Calcium Carbonate 600 MG + Vit D TAB PO SCH ×2 (08:30→16:49)
[2020-03-31] MEDS: Carvedilol 6.25 MG TAB PO SCH ×2 (08:30→16:49)
[2020-03-31] MEDS: Sodium Bicarbonate Tab 325 MG TAB PO SCH ×3 (08:30→19:51)
--- NOTE | 2020-03-31 11:53 | PRG ---
DATE OF SERVICE: 03/31/2020 SUBJECTIVE: The patient is on COVID isolation. OBJECTIVE: VITAL SIGNS: Temperature 97.6, pulse 74, respiratory rate 18, blood pressure 126/92. LABORATORY DATA: Potassium 3.5, BUN is 91, and creatinine is 7.3. ASSESSMENT AND PLAN: 1. Acute kidney injury on chronic kidney disease, stage 3, nonoliguric, most likely renal recovery is likely. We will continue to monitor. No dialysis today. Had dialysis yesterday for clearance of BUN. 2. . 3. Acidosis. 4. COVID-19 infection. We will continue close monitoring. Job ID: [id number]
--- NOTE | 2020-03-31 13:01 | PDOC.HOSPP ---
- Subjective Encounter Date: 03/31/20 Encounter Time: 09:00 Subjective: no overnight events. Per nurse, nonadherent to diet, explained regarding importance of dietary adherence for diabetic management and wound healing. Requests to go home. Explained regarding his renal function, underlying etiology , and unpredictable course of ATN requiring further monitoring. - Objective Vital Signs & Weight: Vital Signs (12 hours) Temp Pulse Resp BP Pulse Ox 03/31/20 08:35 97.6 F 74 18 126/92 H 95 Weight Admit Weight 278 lb Weight 278 lb 3.574 oz Most Recent Monitor Data Heart Rate from ECG 106 NIBP 134/112 NIBP BP-Mean 119 Respiration from ECG 21 SpO2 95 I&O: 03/30/20 03/31/20 04/01/20 06:59 06:59 06:59 Intake Total 700 735 Output Total 2750 750 Balance -2049 Result Diagrams: 03/28/20 05:34 03/31/20 06:07 Additional Labs: Accuchecks 03/31/20 03/31/20 03/30/20 11:24 04:43 19:57 POC Glucose 135 H 128 H 117 H 03/30/20 16:23 POC Glucose 231 H Hospitalist ROS - Review of Systems Constitutional: denies: fever, chills, sweats, weakness, malaise, other Respiratory: denies: cough, dry, shortness of breath, hemoptysis, SOB with excertion, pleuritic pain, sputum, wheezing, other Cardiovascular: denies: chest pain, palpitations, orthopnea, paroxysmal noc. dyspnea, edema, light headedness, other Gastrointestinal: denies: nausea, vomiting, abdominal pain, diarrhea, constipation, melena, hematochezia, other - Medication Medications: Active Medications Generic Name Dose Route Start Last Admin Trade Name Freq PRN Reason Stop Dose Admin Acetaminophen 650 mg 03/06/20 01:56 03/06/20 11:59 Tylenol PO 650 mg Q4H PRN Administration Headache/Fever/Mild Pain (1-3) Albuterol Sulfate 1 puff 03/06/20 21:09 03/19/20 08:11 Proventil Hfa INH 1 puff Q8H PRN Administration Wheezing Atorvastatin Calcium 40 mg 03/19/20 21:00 03/30/20 19:48 Lipitor PO 40 mg HS SHANIKA Administration Calcium/Vitamin D 1 tab 03/24/20 17:00 03/31/20 08:30 Caltrate 600 + Vit D PO 1 tab BID-WM SHANIKA Administration Carvedilol 12.5 mg 03/18/20 17:00 03/31/20 08:30 Coreg PO 12.5 mg BID-WM SHANIKA Administration Enoxaparin Sodium 120 mg 03/27/20 21:00 03/30/20 18:53 Lovenox SC Not Given 2[address] [facility] Heparin Sodium (Porcine) 500 units 03/30/20 11:31 03/30/20 12:20 Heparin Lock Flush 100 Units/Ml IV 5 ml PRN PRN Administration DISLYSIS CATH LOCK Hydralazine HCl 10 mg 03/23/20 09:30 03/23/20 20:10 Apresoline SLOW IVP 10 mg PRN PRN Administration SBP > 150 Insulin Human Lispro 0 units 03/06/20 02:05 03/30/20 16:31 Humalog SC 3 unit .MILD SLIDING SCALE PRN Administration Mild Correctional Scale Mometasone Furoate/Formoterol Fumar 2 puff 03/07/20 06:30 03/31/20 06:57 Dulera 200 Mcg/5 Mcg Inhaler INH Not Given BID-RT SHANIKA Pantoprazole Sodium 40 mg 03/11/20 09:00 03/31/20 08:30 Protonix PO 40 mg DAILY SHANIKA Administration Sodium Bicarbonate 650 mg 03/24/20 21:00 03/31/20 08:30 Bicarbonate, Sodium PO 650 mg TID SHANIKA Administration Sodium Chloride 10 ml 03/06/20 09:00 03/31/20 08:30 Flush - Normal Saline IVF 10 ml Q12HR SHANIKA Administration Sodium Chloride 10 ml 03/06/20 04:01 03/30/20 12:19 Flush - Normal Saline IVF 10 ml PRN PRN Administration Saline Flush - Exam General Appearance: NAD, awake alert Eye: PERRL Heart: RRR, no murmur, no gallops, no rubs Respiratory: CTAB, no wheezes, no rales, no ronchi Gastrointestinal: soft, non-tender, non-distended, normal bowel sounds Extremities: 2+ LE edema Extremities - other findings: improving Skin - other findings: multiple open blisters, improving, noninfected Psychiatric: normal affect, normal behavior, A&O x 3 Hosp A/P - Plan #nonoliguric MESFIN #ATN 600cc removed via dialysis (03/30) -strict I/O -monitor GFR, awaiting additional improvement prior to discharge, as explained to patient #p. afib -continue eliquis #blisters -improving, wound care onboard #COVID pneumonia (resolved) full code ELOS: 3-4 nights
[2020-03-31] MEDS: HumaLOG 300 UNITS/3 ML VIAL SC PRN (17:02)
[2020-03-31] MEDS: Enoxaparin Sodium 120 MG/0.8 ML SYRINGE SC SCH (19:29)
[2020-03-31] MEDS: Atorvastatin Calcium 40 MG TAB PO SCH (19:51)
[2020-03-31 20:20] LABS: #Basophils 0.1 thou/uL (0.0-0.2); #Eosinphils 0.1 thou/uL (0.0-0.7); #Lymphocytes 0.9 thou/uL (1.20-3.40); #Monocytes 0.7 thou/uL (0.11-0.59); #Neutrophils 8.9 thou/uL (1.40-6.50); %Basophils 0.7 % (0.0-1.0); %Eosinophils 0.9 % (0.0-10.0); %Lymphocytes 8.8 % (21.0-51.0); %Monocytes 6.4 % (0.0-10.0); %Neutrophils 83.2 % (42.0-75.0); Hemoglobin 14.1 g/dL (14.0-18.0); Mean Corpuscular HGB CONC 32.8 g/dL (32.0-36.0); Mean Corpuscular Hemoglobin 29.3 pg (27.0-31.0); Mean Corpuscular Volume 89.4 fL (78.0-98.0); Mean Platelet Volume 11.4 fL (7.4-10.4); Platelet Count 55 thou/uL (130-400); RBC Distribution Width 17.3 % (11.5-14.5); Red Blood Cell (RBC) Count 4.83 mill/uL (4.70-6.10); White Blood Cell (WBC) Count 10.7 thou/uL (4.8-10.8)
[2020-03-31 20:38] LABS: Anion Gap 16 mmol/L (10-20); BUN (Urea Nitrogen) 90 mg/dL (8.9-20.6); Calc. Creatinine Clearance 23 mL/min (70-130); Calcium 7.4 mg/dL (7.8-10.44); Carbon Dioxide 23 mmol/L (22-29); Chloride 104 mmol/L (98-107); Estimated GFR-MDRD 10; Glucose 143 mg/dL (70-105); Potassium 3.8 mmol/L (3.5-5.1); Sodium 139 mmol/L (136-145)
[2020-04-01 06:42] LABS: Anion Gap 17 mmol/L (10-20); BUN (Urea Nitrogen) 91 mg/dL (8.9-20.6); Calc. Creatinine Clearance 23 mL/min (70-130); Calcium 7.7 mg/dL (7.8-10.44); Carbon Dioxide 23 mmol/L (22-29); Chloride 104 mmol/L (98-107); Estimated GFR-MDRD 10; Glucose 118 mg/dL (70-105); Phosphorus 8.3 mg/dL (2.3-4.7); Potassium 3.7 mmol/L (3.5-5.1); Sodium 140 mmol/L (136-145)
[2020-04-01] MEDS: Sodium Bicarbonate Tab 325 MG TAB PO SCH (08:37)
[2020-04-01] MEDS: Carvedilol 6.25 MG TAB PO SCH ×2 (08:37→16:21)
[2020-04-01] MEDS: Apixaban 5 MG TAB PO SCH ×2 (08:37→20:38)
[2020-04-01] MEDS: Calcium Carbonate 600 MG + Vit D TAB PO SCH ×2 (08:37→16:20)
[2020-04-01] MEDS: Mometasone 200 MCG/Formoterol 5 MCG 120 PUFF INHALER INH SCH ×2 (08:40→18:42)
[2020-04-01] MEDS: HumaLOG 300 UNITS/3 ML VIAL SC PRN (11:57)
--- NOTE | 2020-04-01 12:23 | PRG ---
DATE OF SERVICE: 04/01/2020 SUBJECTIVE: Patient was seen and examined at bedside and overnight events noted. Patient denies any shortness of breath or chest pain or palpitation. No history of nausea or vomiting or diarrhea or fever or chills or cramps. OBJECTIVE: GENERAL: This is a well-built male, in no apparent distress. VITAL SIGNS: Temperature 97.3. Heart Rate 67. Respiratory rate 18. Blood pressure 119/90. HEENT: Atraumatic, normocephalic. Oral mucosa is moist. NECK: Supple. CARDIOVASCULAR: S1, S2 heard. Rate and rhythm regular. RESPIRATORY: Clear to auscultation. GASTROINTESTINAL: Abdomen is soft. MUSCULOSKELETAL: No tenderness. No edema. DERMATOLOGIC: No skin rash. NEUROLOGIC: Alert and awake and oriented x3. No focal neurologic deficits. Moving all the extremities. PSYCHIATRIC: Mood and affect normal. LABORATORY DATA: Potassium 3.7, BUN is 91, and creatinine is 7.1. ASSESSMENT AND PLAN: 1. Acute kidney injury on chronic kidney disease stage 3 with stabilization of renal function and good urine output. We will continue to monitor. The patient's dialysis catheter will be removed as it has been placed more than 2 weeks back and it was not working well anyway. If the patient continues to need dialysis, he probably needs a new catheter. We will remove the old one for now. 2. Acidosis. 3. COVID-19 infection. 4. History of hypertension. 5. Morbid obesity. Plan to monitor closely, avoid nephrotoxins, and we will follow. Job ID: [id number]
[2020-04-01] MEDS: Atorvastatin Calcium 40 MG TAB PO SCH (20:38)
--- NOTE | 2020-04-01 22:45 | PDOC.HOSPP ---
- Subjective Encounter Date: 04/01/20 Encounter Time: 11:00 Subjective: overnight, femoral catheter removed. Has no complaints. - Objective Vital Signs & Weight: Vital Signs (12 hours) Pulse BP 04/01/20 16:21 75 121/91 H Weight Admit Weight 278 lb Weight 278 lb 3.574 oz Most Recent Monitor Data Heart Rate from ECG 106 NIBP 134/112 NIBP BP-Mean 119 Respiration from ECG 21 SpO2 95 I&O: 03/31/20 04/01/20 04/02/20 06:59 06:59 06:59 Intake Total 735 730 800 Output Total 750 1140 700 Balance -15 -410 100 Result Diagrams: 03/31/20 19:55 04/01/20 05:48 Additional Labs: Accuchecks 04/01/20 04/01/20 04/01/20 20:49 16:15 11:31 POC Glucose 154 H 89 183 H 04/01/20 05:08 POC Glucose 132 H Hospitalist ROS - Review of Systems Constitutional: denies: fever, chills, sweats, weakness, malaise, other Respiratory: denies: cough, dry, shortness of breath, hemoptysis, SOB with excertion, pleuritic pain, sputum, wheezing, other Cardiovascular: denies: chest pain, palpitations, orthopnea, paroxysmal noc. dyspnea, edema, light headedness, other Gastrointestinal: denies: nausea, vomiting, abdominal pain, diarrhea, constipation, melena, hematochezia, other Genitourinary: denies: dysuria, frequency, incontinence, hematuria, retention, other - Medication Medications: Active Medications Generic Name Dose Route Start Last Admin Trade Name Freq PRN Reason Stop Dose Admin Acetaminophen 650 mg 03/06/20 01:56 03/06/20 11:59 Tylenol PO 650 mg Q4H PRN Administration Headache/Fever/Mild Pain (1-3) Albuterol Sulfate 1 puff 03/06/20 21:09 03/19/20 08:11 Proventil Hfa INH 1 puff Q8H PRN Administration Wheezing Apixaban 5 mg 04/01/20 09:00 04/01/20 20:38 Eliquis PO 5 mg BID SHANIKA Administration Atorvastatin Calcium 40 mg 03/19/20 21:00 04/01/20 20:38 Lipitor PO 40 mg HS SHANIKA Administration Calcium/Vitamin D 1 tab 03/24/20 17:00 04/01/20 16:20 Caltrate 600 + Vit D PO 1 tab BID-WM SHANIKA Administration Carvedilol 12.5 mg 03/18/20 17:00 04/01/20 16:21 Coreg PO 12.5 mg BID-WM SHANIKA Administration Heparin Sodium (Porcine) 500 units 03/30/20 11:31 03/30/20 12:20 Heparin Lock Flush 100 Units/Ml IV 5 ml PRN PRN Administration DISLYSIS CATH LOCK Hydralazine HCl 10 mg 03/23/20 09:30 03/23/20 20:10 Apresoline SLOW IVP 10 mg PRN PRN Administration SBP > 150 Insulin Human Lispro 0 units 03/06/20 02:05 04/01/20 11:57 Humalog SC 2 unit .MILD SLIDING SCALE PRN Administration Mild Correctional Scale Mometasone Furoate/Formoterol Fumar 2 puff 03/07/20 06:30 04/01/20 18:42 Dulera 200 Mcg/5 Mcg Inhaler INH 2 puff BID-RT SHANIKA Administration Pantoprazole Sodium 40 mg 03/11/20 09:00 04/01/20 08:37 Protonix PO 40 mg DAILY SHANIKA Administration Sodium Chloride 10 ml 03/06/20 09:00 04/01/20 20:38 Flush - Normal Saline IVF 10 ml Q12HR SHANIKA Administration Sodium Chloride 10 ml 03/06/20 04:01 03/30/20 12:19 Flush - Normal Saline IVF 10 ml PRN PRN Administration Saline Flush - Exam General Appearance: NAD, awake alert Eye: PERRL, anicteric sclera Neck: supple, symmetric, no JVD, no thyromegaly, no lymphadenopathy, no carotid bruit Heart: RRR, no murmur, no gallops, no rubs, normal peripheral pulses Respiratory: CTAB, no wheezes, no rales, no ronchi, normal chest expansion, no tachypnea, normal percussion Hosp A/P - Plan #nonoliguric MESFIN #ATN 600cc removed via dialysis (03/30) removed femoral catheter (03/31) continue to monitor renal function, electrolytes; may require IJ placed if renal function doesn't improve; nephrology onboard #p. afib -continue eliquis #blisters -improving, wound care onboard #COVID pneumonia (resolved) full code ELOS: 2 nights
[2020-04-02] MEDS: Mometasone 200 MCG/Formoterol 5 MCG 120 PUFF INHALER INH SCH ×2 (06:20→17:55)
[2020-04-02] MEDS: Carvedilol 6.25 MG TAB PO SCH ×2 (08:27→15:55)
[2020-04-02] MEDS: Apixaban 5 MG TAB PO SCH ×2 (08:27→20:08)
[2020-04-02] MEDS: Calcium Carbonate 600 MG + Vit D TAB PO SCH ×2 (08:28→15:55)
[2020-04-02 10:58] LABS: Anion Gap 20 mmol/L (10-20); BUN (Urea Nitrogen) 85 mg/dL (8.9-20.6); Calc. Creatinine Clearance 25 mL/min (70-130); Calcium 7.3 mg/dL (7.8-10.44); Carbon Dioxide 13 mmol/L (22-29); Chloride 109 mmol/L (98-107); Estimated GFR-MDRD 11; Glucose 165 mg/dL (70-105); Potassium 5.4 mmol/L (3.5-5.1); Sodium 137 mmol/L (136-145)
--- NOTE | 2020-04-02 11:00 | PRG ---
DATE OF SERVICE: 04/02/2020 SUBJECTIVE: Patient was seen and examined at bedside and overnight events noted. Patient denies any shortness of breath or chest pain or palpitation. No history of nausea or vomiting or diarrhea or fever or chills or cramps. OBJECTIVE: GENERAL: This is an obese male, in no apparent distress. VITAL SIGNS: Temperature 97.4. Heart rate 68. Respiratory rate 18. Blood pressure 110/71. HEENT: Atraumatic, normocephalic. Oral mucosa is moist. NECK: Supple. CARDIOVASCULAR: S1, S2 heard. Rate and rhythm regular. RESPIRATORY: Clear to auscultation. GASTROINTESTINAL: Abdomen is soft. MUSCULOSKELETAL: No tenderness. No edema. DERMATOLOGIC: No skin rash. NEUROLOGIC: Alert and awake and oriented x3. No focal neurologic deficits. Moving all the extremities. PSYCHIATRIC: Mood and affect normal. LABORATORY DATA: Not done today. ASSESSMENT AND PLAN: 1. Acute kidney injury on chronic kidney disease, stage 3 with stable lytes and renal function with improving urine output. We will monitor. 2. Acidosis. 3. COVID-19 infection. 4. Hypertension. 5. Morbid obesity. Monitor labs today and tomorrow. If stable, could discharge safely to home. Job ID: [id number]
--- NOTE | 2020-04-02 13:43 | PDOC.HOSPP ---
- Subjective Encounter Date: 04/02/20 Encounter Time: 09:00 Subjective: no overnight events. patient requesting to leave home but explained that his renal function is improving but additional monitoring by nephrology preferred. expressed understanding and willing to stay. Endorses improvement in blisters and edema. - Objective Vital Signs & Weight: Vital Signs (12 hours) Temp Pulse Resp BP Pulse Ox 04/02/20 11:36 97.9 F 78 18 123/90 95 04/02/20 08:00 97.4 F L 68 18 110/71 93 L Weight Admit Weight 278 lb Weight 278 lb 3.574 oz Most Recent Monitor Data Heart Rate from ECG 106 NIBP 134/112 NIBP BP-Mean 119 Respiration from ECG 21 SpO2 95 I&O: 04/01/20 04/02/20 04/03/20 06:59 06:59 06:59 Intake Total 730 800 Output Total 1140 700 Balance -410 100 Result Diagrams: 03/31/20 19:55 04/02/20 09:42 Additional Labs: Accuchecks 04/02/20 04/02/20 04/01/20 11:36 05:09 20:49 POC Glucose 139 H 123 H 154 H 04/01/20 16:15 POC Glucose 89 Hospitalist ROS - Review of Systems Constitutional: denies: fever, chills, sweats, weakness, malaise, other Respiratory: denies: cough, dry, shortness of breath, hemoptysis, SOB with excertion, pleuritic pain, sputum, wheezing, other Cardiovascular: denies: chest pain, palpitations, orthopnea, paroxysmal noc. dyspnea, edema, light headedness, other Gastrointestinal: denies: nausea, vomiting, abdominal pain, diarrhea, constipation, melena, hematochezia, other - Medication Medications: Active Medications Generic Name Dose Route Start Last Admin Trade Name Freq PRN Reason Stop Dose Admin Acetaminophen 650 mg 03/06/20 01:56 03/06/20 11:59 Tylenol PO 650 mg Q4H PRN Administration Headache/Fever/Mild Pain (1-3) Albuterol Sulfate 1 puff 03/06/20 21:09 03/19/20 08:11 Proventil Hfa INH 1 puff Q8H PRN Administration Wheezing Apixaban 5 mg 04/01/20 09:00 04/02/20 08:27 Eliquis PO 5 mg BID SHANIKA Administration Atorvastatin Calcium 40 mg 03/19/20 21:00 04/01/20 20:38 Lipitor PO 40 mg HS SHANIKA Administration Calcium/Vitamin D 1 tab 03/24/20 17:00 04/02/20 08:28 Caltrate 600 + Vit D PO 1 tab BID-WM SHANIKA Administration Carvedilol 12.5 mg 03/18/20 17:00 04/02/20 08:27 Coreg PO 12.5 mg BID-WM SHANIKA Administration Heparin Sodium (Porcine) 500 units 03/30/20 11:31 03/30/20 12:20 Heparin Lock Flush 100 Units/Ml IV 5 ml PRN PRN Administration DISLYSIS CATH LOCK Hydralazine HCl 10 mg 03/23/20 09:30 03/23/20 20:10 Apresoline SLOW IVP 10 mg PRN PRN Administration SBP > 150 Insulin Human Lispro 0 units 03/06/20 02:05 04/01/20 11:57 Humalog SC 2 unit .MILD SLIDING SCALE PRN Administration Mild Correctional Scale Mometasone Furoate/Formoterol Fumar 2 puff 03/07/20 06:30 04/02/20 06:20 Dulera 200 Mcg/5 Mcg Inhaler INH Not Given BID-RT SHANIKA Pantoprazole Sodium 40 mg 03/11/20 09:00 04/02/20 08:28 Protonix PO 40 mg DAILY SHANIKA Administration Sodium Chloride 10 ml 03/06/20 09:00 04/02/20 08:28 Flush - Normal Saline IVF Not Given Q12HR SHANIKA Sodium Chloride 10 ml 03/06/20 04:01 03/30/20 12:19 Flush - Normal Saline IVF 10 ml PRN PRN Administration Saline Flush - Exam General Appearance: NAD, awake alert Neck: no JVD Heart: RRR, no murmur, no gallops, no rubs Respiratory: CTAB, no wheezes, no rales, no ronchi Gastrointestinal: soft, non-tender, non-distended, normal bowel sounds Extremities: 2+ LE edema Extremities - other findings: unchanged Psychiatric: normal affect, normal behavior, A&O x 3 Hosp A/P - Plan #nonoliguric MESFIN #ATN 600cc removed via dialysis (03/30) removed femoral catheter (03/31) creatinine continues to downtrend #p. afib -continue eliquis #blisters -improving, wound care onboard #COVID pneumonia (resolved) full code ELOS: 1 night
[2020-04-02] MEDS: Atorvastatin Calcium 40 MG TAB PO SCH (20:08)
[2020-04-03] MEDS: Mometasone 200 MCG/Formoterol 5 MCG 120 PUFF INHALER INH SCH ×2 (05:22→18:05)
[2020-04-03 07:13] LABS: Anion Gap 15 mmol/L (10-20); BUN (Urea Nitrogen) 78 mg/dL (8.9-20.6); Calc. Creatinine Clearance 26 mL/min (70-130); Calcium 7.5 mg/dL (7.8-10.44); Carbon Dioxide 22 mmol/L (22-29); Chloride 105 mmol/L (98-107); Estimated GFR-MDRD 11; Glucose 119 mg/dL (70-105); Potassium 3.5 mmol/L (3.5-5.1); Sodium 138 mmol/L (136-145)
[2020-04-03] MEDS: Calcium Carbonate 600 MG + Vit D TAB PO SCH ×2 (08:20→17:04)
[2020-04-03] MEDS: Carvedilol 6.25 MG TAB PO SCH ×2 (08:20→17:04)
[2020-04-03] MEDS: Apixaban 5 MG TAB PO SCH ×2 (08:20→20:20)
--- NOTE | 2020-04-03 13:38 | PRG ---
DATE OF SERVICE: 04/03/2020 SUBJECTIVE: The patient was seen and examined at bedside and overnight events noted. The patient denies any shortness of breath or chest pain or palpitation. No history of nausea or vomiting or diarrhea or fever or chills or cramps. OBJECTIVE: GENERAL: This is a morbidly obese male, in no apparent distress. VITAL SIGNS: Temperature 97.5. Heart rate 71. Respiratory rate 20. Blood pressure 107/76. HEENT: Atraumatic, normocephalic. Oral mucosa is moist. NECK: Supple. CARDIOVASCULAR: S1, S2 heard. Rate and rhythm regular. RESPIRATORY: Clear to auscultation. GASTROINTESTINAL: Abdomen is soft. MUSCULOSKELETAL: No tenderness. No edema. DERMATOLOGIC: No skin rash. NEUROLOGIC: Alert and awake and oriented x3. No focal neurologic deficits. Moving all the extremities. PSYCHIATRIC: Mood and affect normal. LABORATORY DATA: Potassium is 3.5, BUN is 78, creatinine is 6.4. ASSESSMENT AND PLAN: 1. Acute kidney injury on chronic kidney disease, stage 3, stable. 2. Acidosis. 3. COVID-19 infection. 4. Hypertension. 5. Morbid obesity. No indication for dialysis. Okay to discharge home. Follow up with the clinic within a week. Job ID: [id number]
[2020-04-03] MEDS: Atorvastatin Calcium 40 MG TAB PO SCH (20:20)
[2020-04-03 20:46] VITALS: BP 131/90; TEMP 98
--- NOTE | 2020-04-05 16:34 | DIS ---
DATE OF ADMISSION: 03/06/2020 DATE OF DISCHARGE: 04/03/2020 HOSPITAL COURSE: Mr. Ramirez is a 44-year-old male with a medical history of hypertension, type 2 diabetes, sleep apnea, and morbid obesity, who presented with shortness of breath, fatigue, and weakness. He was diagnosed with COVID pneumonia, that was treated with symptomatic management considering the mild nature of his pneumonia. During his inpatient stay, the patient also was treated for paroxysmal atrial fibrillation, and the patient developed MESFIN due to acute tubular necrosis, which required him to have a few hemodialysis sessions through femoral dialysis catheter. The patient's renal function improved over several days prior to discharge. He produced proper volumes and had nonoliguric ATN. The patient had no indication for further dialysis and was discharged home hemodynamically stable with no complaints. Of note, the patient also developed superficial blisters on his lower back and arm that were taken care of by the wound care team, as well as the nursing staff. PHYSICAL EXAMINATION: VITAL SIGNS: Blood pressure 114/83, pulse 77, temperature 97.6, respiratory rate 18, and oxygen saturation 95% on room air. GENERAL: Lying comfortably in bed. Morbidly obese. HEENT: Atraumatic and normocephalic. Moist oral mucosa. CARDIOVASCULAR: Regular rate and rhythm. No murmurs, rubs, or gallops. RESPIRATORY: Clear to auscultation bilaterally. No wheezing, rales, or rhonchi. ABDOMEN: Soft, nontender, and nondistended. Normal bowel sounds. EXTREMITIES: +2 pitting edema bilateral equal up to mid thigh level that has improved since the patient developed MESFIN. SKIN: Open blisters in the left and right lower back that are improving as well as a blister on the left forearm that is improving. PSYCHIATRIC: Proper mood and affect. Alert and oriented x3. MEDICATION LIST: New medications; 1. Apixaban 5 mg oral b.i.d. for paroxysmal atrial fibrillation. 2. Calcium carbonate with vitamin D. Modified medications, Coreg was changed to metoprolol tartrate 12.5 mg b.i.d. because the patient was borderline hypotensive. Continued medications; 1. Atorvastatin 40 mg daily. 2. Amlodipine 10 mg daily. 3. Budesonide formoterol. Discontinued medications; 1. Metformin because of the patient's severe renal dysfunction in order to avoid lactic acidosis development. The patient was informed to discuss restarting metformin with his primary care physician. Of note, the patient's glucose was well controlled without need for medical diabetic management. 2. Other discontinued medication was Carvedilol 12.5 oral b.i.d., that medication was changed to metoprolol. 3. Another discontinued medication was losartan/hydrochlorothiazide, again because of the patient's MESFIN and borderline hypotension. Of note, the patient was scheduled up with an appointment with his primary care physician and with Nephrology within a week and was informed of the importance of following up on those appointment. Job ID: [id number]
== END 2020-04-03 21:00 | disposition home or self-care (01) | DRG 177 ==
LOC: IMCU/EMU 03-06 01:45 → 2SW 03-10 23:23 → T4-A 03-13 21:21 → CCU 03-16 15:42 → IMCU/EMU 03-16 23:39 → T4-B 03-19 23:25
PROVIDERS: ADMIT Internal Medicine; ATTEND Internal Medicine
PROC: 8E0ZXY6 Isolation (ICD-10-PCS; 2020-03-06)
PROC: 30243L1 Transfusion of Nonautologous Fresh Plasma into Central Vein, Percutaneous Approach (ICD-10-PCS; principal; 2020-03-07)
PROC: 30243K1 Transfusion of Nonautologous Frozen Plasma into Central Vein, Percutaneous Approach (ICD-10-PCS; 2020-03-07)
PROC: 5A1D70Z Performance of Urinary Filtration, Intermittent, Less than 6 Hours Per Day (ICD-10-PCS; 2020-03-14)
PROC: 06HY33Z Insertion of Infusion Device into Lower Vein, Percutaneous Approach (ICD-10-PCS; 2020-03-14)
PROC: 5A09357 Assistance with Respiratory Ventilation, Less than 24 Consecutive Hours, Continuous Positive Airway Pressure (ICD-10-PCS; 2020-03-16)
DX: U07.1 COVID-19 (principal); J96.01 Acute respiratory failure with hypoxia; J12.89 Other viral pneumonia; J96.02 Acute respiratory failure with hypercapnia; N17.0 Acute kidney failure with tubular necrosis; N18.6 End stage renal disease; E87.2 Acidosis; E87.1 Hypo-osmolality and hyponatremia; G93.49 Other encephalopathy; Z68.42 Body mass index [BMI] 45.0-49.9, adult; E66.2 Morbid (severe) obesity with alveolar hypoventilation; I10 Essential (primary) hypertension; I48.0 Paroxysmal atrial fibrillation; E11.9 Type 2 diabetes mellitus without complications; E87.5 Hyperkalemia; E83.51 Hypocalcemia; E87.8 Other disorders of electrolyte and fluid balance, not elsewhere classified; S30.820A Blister (nonthermal) of lower back and pelvis, initial encounter; X58.XXXA Exposure to other specified factors, initial encounter; Z79.899 Other long term (current) drug therapy; Z79.84 Long term (current) use of oral hypoglycemic drugs
CPT/HCPCS: 36415; 36416; 36430; 71045; 74176; 76770; 80048; 80053; 80061; 80076; 81001; 81015; 82436; 82570; 82575; 82728; 82805; 83735; 83970; 84100; 84133; 84300; 84484; 85007; 85014; 85018; 85025; 85027; 85049; 85379; 85652; 86140; 86704; 86706; 86803; 86850; 86900; 86901; 87086; 87340; 87635; 90471; 90732; 90935; 94660; 94664; G0009; G0257; J0360; J0456; J0696; J1642; J1644; J1650; J3490; J7050; J8540; S0028; U0003

== ENCOUNTER 2021-06-22 16:26 | Inpatient (IN) | payer SELFPAY ==
[2021-06-22 18:11] LABS: Hemoglobin 12.1 g/dL (14.0-18.0); Mean Corpuscular Hemoglobin 28.1 pg (27.0-31.0); Mean Corpuscular Volume 93.6 fL (78.0-98.0); Mean Platelet Volume 9.9 fL (7.4-10.4); Platelet Count 186 thou/uL (130-400); RBC Distribution Width 17.7 % (11.5-14.5); Red Blood Cell (RBC) Count 4.32 mill/uL (4.70-6.10); White Blood Cell (WBC) Count 8.4 thou/uL (4.8-10.8)
[2021-06-22 18:12] LABS: #Eosinphils 0.3 thou/uL (0.0-0.7); #Lymphocytes 0.9 thou/uL (1.20-3.40); #Monocytes 0.5 thou/uL (0.11-0.59); #Neutrophils 6.7 thou/uL (1.40-6.50); %Basophils 0.6 % (0.0-1.0); %Eosinophils 3.2 % (0.0-10.0); %Lymphocytes 10.5 % (21.0-51.0); %Monocytes 5.4 % (0.0-10.0); %Neutrophils 80.4 % (42.0-75.0)
[2021-06-22 18:33] LABS: ALT (SGPT) Less than 7 U/L (8-55); AST (SGOT) 12 U/L (5-34); Albumin 3.8 g/dL (3.5-5.0); Alkaline Phosphatase 69 U/L (40-110); Anion Gap 13 mmol/L (10-20); BUN (Urea Nitrogen) 25 mg/dL (8.9-20.6); Bilirubin, Total 0.7 mg/dL (0.2-1.2); Calc. Creatinine Clearance 0 mL/min (70-130); Calcium 9.1 mg/dL (7.8-10.44); Carbon Dioxide 31 mmol/L (22-29); Chloride 104 mmol/L (98-107); Globulin 3.6 g/dL (2.4-3.5); Glucose 80 mg/dL (70-105); Lipase 21 U/L (8-78); Potassium 4.5 mmol/L (3.5-5.1); Protein, Total 7.4 g/dL (6.0-8.3); Sodium 143 mmol/L (136-145)
[2021-06-22 18:34] LABS: Hypochromia SLIGHT = 6-15 cells (100X) (0-5/hpf); MDiff Complete? YES; Platelet Morphology Comment Appears Adequate; Polychromasia MODERATE = 3-4 cells (100X) (0-2/hpf); Stomatocytes SLIGHT = 2-5 cells (100X) (0-1/hpf); Target Cells SLIGHT = 2-5 cells (100X) (0-1/hpf); Tear Drops SLIGHT = 2-5 cells (100X) (0-1/hpf)
[2021-06-22 19:21] LABS: SARS-CoV-2 NAA Rapid Test Not Detected (NotDetected)
[2021-06-22 21:55] VITALS: BMI 44.4
[2021-06-22 22:30] LABS: Troponin I 0.026 ng/mL (< 0.028)
[2021-06-22] MEDS ORDERED: Furosemide 20 MG/2 ML VIAL SLOW IVP SCH (23:45)
[2021-06-22] MEDS ORDERED: Ondansetron PF 4 MG/2 ML Vial IVP PRN (23:56)
[2021-06-22] MEDS ORDERED: Acetaminophen 650 MG Suppository PR PRN (23:56)
[2021-06-22] MEDS ORDERED: Acetaminophen 325 MG TAB PO PRN (23:56)
[2021-06-22] MEDS ORDERED: Ondansetron ODT 4 MG TAB PO PRN (23:56)
[2021-06-23 01:52] LABS: Troponin I Less than 0.010 ng/mL (< 0.028)
[2021-06-23 05:08] LABS: #Eosinphils 0.2 thou/uL (0.0-0.7); #Lymphocytes 0.9 thou/uL (1.20-3.40); #Monocytes 0.6 thou/uL (0.11-0.59); %Basophils 0.4 % (0.0-1.0); %Eosinophils 2.6 % (0.0-10.0); %Lymphocytes 9.8 % (21.0-51.0); %Monocytes 6.5 % (0.0-10.0); %Neutrophils 80.7 % (42.0-75.0); Hemoglobin 11.4 g/dL (14.0-18.0); Mean Corpuscular HGB CONC 29.2 g/dL (32.0-36.0); Mean Corpuscular Hemoglobin 27.7 pg (27.0-31.0); Mean Corpuscular Volume 94.8 fL (78.0-98.0); Mean Platelet Volume 10.2 fL (7.4-10.4); Platelet Count 164 thou/uL (130-400); RBC Distribution Width 17.5 % (11.5-14.5); Red Blood Cell (RBC) Count 4.13 mill/uL (4.70-6.10); White Blood Cell (WBC) Count 8.7 thou/uL (4.8-10.8)
[2021-06-23 05:22] LABS: Anion Gap 10 mmol/L (10-20); BUN (Urea Nitrogen) 27 mg/dL (8.9-20.6); Calc. Creatinine Clearance 32 mL/min (70-130); Calcium 8.9 mg/dL (7.8-10.44); Carbon Dioxide 32 mmol/L (22-29); Chloride 104 mmol/L (98-107); Glucose 78 mg/dL (70-105); Magnesium 1.9 mg/dL (1.6-2.6); Potassium 4.3 mmol/L (3.5-5.1); Sodium 142 mmol/L (136-145)
[2021-06-23] MEDS ORDERED: Enoxaparin Sodium 30 MG/0.3 ML SYRINGE SC SCH (09:00)
[2021-06-23] MEDS: hydrALAZINE 25 MG TAB PO SCH ×2 (14:53→20:24)
[2021-06-23] MEDS: Furosemide 20 MG/2 ML VIAL SLOW IVP SCH (14:54)
[2021-06-23] MEDS: Heparin 5,000 UNITS/ML VIAL SC SCH (20:25)
[2021-06-23] MEDS: Metoprolol Tartrate 25 MG TAB PO SCH (20:25)
[2021-06-23] MEDS: Atorvastatin Calcium 40 MG TAB PO SCH (20:25)
[2021-06-23] MEDS ORDERED: Carvedilol 25 MG TAB PO SCH (21:00)
[2021-06-24] MEDS: Metoprolol Tartrate 25 MG TAB PO SCH ×2 (08:41→20:41)
[2021-06-24] MEDS: Heparin 5,000 UNITS/ML VIAL SC SCH ×3 (08:41→20:41)
[2021-06-24] MEDS: Furosemide 20 MG/2 ML VIAL SLOW IVP SCH ×2 (08:41→13:57)
[2021-06-24] MEDS: Amlodipine 10 MG TAB PO SCH (08:41)
[2021-06-24] MEDS: hydrALAZINE 25 MG TAB PO SCH ×3 (08:41→20:40)
[2021-06-24 12:33] LABS: BUN (Urea Nitrogen) 33 mg/dL (8.9-20.6); Calc. Creatinine Clearance 31 mL/min (70-130); Calcium 8.5 mg/dL (7.8-10.44); Carbon Dioxide 32 mmol/L (22-29); Glucose 163 mg/dL (70-105); Potassium 4.2 mmol/L (3.5-5.1); Sodium 140 mmol/L (136-145)
[2021-06-24 14:02] LABS: Anion Gap 16 mmol/L (10-20); Chloride 106 mmol/L (98-107)
[2021-06-24] MEDS: Atorvastatin Calcium 40 MG TAB PO SCH (20:40)
[2021-06-25 05:06] LABS: Anion Gap 12 mmol/L (10-20); BUN (Urea Nitrogen) 34 mg/dL (8.9-20.6); Calc. Creatinine Clearance 30 mL/min (70-130); Calcium 8.6 mg/dL (7.8-10.44); Carbon Dioxide 33 mmol/L (22-29); Chloride 103 mmol/L (98-107); Glucose 84 mg/dL (70-105); Potassium 4.4 mmol/L (3.5-5.1); Sodium 144 mmol/L (136-145)
[2021-06-25] MEDS: Furosemide 20 MG/2 ML VIAL SLOW IVP SCH (05:49)
[2021-06-25] MEDS: Heparin 5,000 UNITS/ML VIAL SC SCH ×3 (08:30→20:31)
[2021-06-25] MEDS: hydrALAZINE 25 MG TAB PO SCH ×3 (08:30→20:29)
[2021-06-25] MEDS: Amlodipine 10 MG TAB PO SCH (08:30)
[2021-06-25] MEDS: Metoprolol Tartrate 25 MG TAB PO SCH ×2 (08:30→20:29)
[2021-06-25] MEDS: Atorvastatin Calcium 40 MG TAB PO SCH (20:29)
[2021-06-26 05:21] LABS: Anion Gap 10 mmol/L (10-20); BUN (Urea Nitrogen) 32 mg/dL (8.9-20.6); Calc. Creatinine Clearance 31 mL/min (70-130); Calcium 8.5 mg/dL (7.8-10.44); Carbon Dioxide 35 mmol/L (22-29); Chloride 103 mmol/L (98-107); Glucose 79 mg/dL (70-105); Potassium 4.2 mmol/L (3.5-5.1); Sodium 144 mmol/L (136-145)
[2021-06-26] MEDS: Metoprolol Tartrate 25 MG TAB PO SCH ×2 (09:03→20:14)
[2021-06-26] MEDS: Heparin 5,000 UNITS/ML VIAL SC SCH ×3 (09:03→20:14)
[2021-06-26] MEDS: Amlodipine 10 MG TAB PO SCH (09:03)
[2021-06-26] MEDS: hydrALAZINE 25 MG TAB PO SCH ×3 (09:04→20:13)
[2021-06-26] MEDS ORDERED: AcetaZOLAMIDE 250 MG TAB PO SCH (11:30)
[2021-06-26] MEDS ORDERED: Furosemide 40 MG/4 ML VIAL SLOW IVP SCH (12:15)
[2021-06-26] MEDS ORDERED: Furosemide 40 MG TAB PO SCH (15:45)
[2021-06-26] MEDS: Atorvastatin Calcium 40 MG TAB PO SCH (20:13)
[2021-06-26] MEDS: AcetaZOLAMIDE 250 MG TAB PO SCH (20:13)
[2021-06-27 05:36] LABS: Anion Gap 10 mmol/L (10-20); BUN (Urea Nitrogen) 32 mg/dL (8.9-20.6); Calc. Creatinine Clearance 32 mL/min (70-130); Calcium 8.7 mg/dL (7.8-10.44); Carbon Dioxide 32 mmol/L (22-29); Chloride 104 mmol/L (98-107); Glucose 106 mg/dL (70-105); Potassium 4.3 mmol/L (3.5-5.1); Sodium 142 mmol/L (136-145)
[2021-06-27] MEDS ORDERED: Furosemide 40 MG/4 ML VIAL SLOW IVP SCH (06:00)
[2021-06-27] MEDS: Amlodipine 10 MG TAB PO SCH (08:43)
[2021-06-27] MEDS: hydrALAZINE 25 MG TAB PO SCH ×2 (08:43→16:00)
[2021-06-27] MEDS: Heparin 5,000 UNITS/ML VIAL SC SCH ×2 (08:43→16:00)
[2021-06-27] MEDS: AcetaZOLAMIDE 250 MG TAB PO SCH (08:43)
[2021-06-27] MEDS: Metoprolol Tartrate 25 MG TAB PO SCH (08:44)
[2021-06-27 11:33] VITALS: BP 136/70; TEMP 98.3
== END 2021-06-27 16:25 | disposition home or self-care (01) | DRG 291 ==
LOC: ERS 16:26 → 2NO 20:13 → OBSVTOIN 06-23 16:34
PROVIDERS: ADMIT Student in an Organized Health Care Education/Training Program; ATTEND Internal Medicine
DX: I13.0 Hypertensive heart and chronic kidney disease with heart failure and stage 1 through stage 4 chronic kidney disease, or unspecified chronic kidney disease (principal); Z20.822 Contact with and (suspected) exposure to COVID-19; I50.33 Acute on chronic diastolic (congestive) heart failure; J96.01 Acute respiratory failure with hypoxia; E87.3 Alkalosis; N18.4 Chronic kidney disease, stage 4 (severe); N17.9 Acute kidney failure, unspecified; E78.00 Pure hypercholesterolemia, unspecified; I48.91 Unspecified atrial fibrillation; J45.909 Unspecified asthma, uncomplicated; E66.01 Morbid (severe) obesity due to excess calories; E78.5 Hyperlipidemia, unspecified; R73.03 Prediabetes; Z68.41 Body mass index [BMI] 40.0-44.9, adult; Z86.16 Personal history of COVID-19; Z79.01 Long term (current) use of anticoagulants; Z79.51 Long term (current) use of inhaled steroids; Z79.899 Other long term (current) drug therapy
CPT/HCPCS: 0240U; 36415; 36416; 71045; 80048; 80053; 83690; 83735; 83880; 84443; 84484; 85025; 93005; 93306; 93798; 96372; 96374; 96376; 97139; G0378; J1644; J1650; J1940

== ENCOUNTER 2021-07-06 09:57 | Inpatient (IN) | payer SELFPAY ==
[2021-07-06 11:33] LABS: ALT (SGPT) Less than 7 U/L (8-55); AST (SGOT) 12 U/L (5-34); Albumin 3.8 g/dL (3.5-5.0); Alkaline Phosphatase 61 U/L (40-110); Anion Gap 10 mmol/L (10-20); BUN (Urea Nitrogen) 34 mg/dL (8.9-20.6); Bilirubin, Total 0.4 mg/dL (0.2-1.2); CK (CPK) 46 U/L (30-200); Calc. Creatinine Clearance 0 mL/min (70-130); Calcium 9.2 mg/dL (7.8-10.44); Carbon Dioxide 29 mmol/L (22-29); Chloride 109 mmol/L (98-107); Globulin 3.7 g/dL (2.4-3.5); Glucose 103 mg/dL (70-105); Potassium 4.7 mmol/L (3.5-5.1); Protein, Total 7.5 g/dL (6.0-8.3); Sodium 143 mmol/L (136-145)
[2021-07-06 12:17] LABS: Clarity Clear (Clear); Specific Gravity, Urine 1.014 (1.002-1.036)
[2021-07-06 12:18] LABS: Bacteria/HPF None Seen HPF (None Seen); Bilirubin Negative (Negative); Blood, Urine Negative (Negative); Glucose, Urine (Dipstick) Normal (Negative); Ketone, Urine Negative (Negative); Leukocyte 25 Leu/uL (Negative); Nitrite Negative (Negative); Protein, Urine (Dipstick) 300 mg/dL (Neg-Trace); RBC/HPF 0-3 HPF (0-3); Squamous Epithelial 0-3 HPF (0-3); Urobilinogen Normal mg/dL (Less than 2); WBC/HPF 0-3 HPF (0-3); pH, Urine 7.5 (5.0-9.0)
[2021-07-06] MEDS ORDERED: Acetaminophen 325 MG TAB PO PRN (14:49)
[2021-07-06] MEDS ORDERED: Ondansetron ODT 4 MG TAB PO PRN (14:49)
[2021-07-06] MEDS ORDERED: Ondansetron PF 4 MG/2 ML Vial IVP PRN (14:49)
[2021-07-06] MEDS ORDERED: Acetaminophen 650 MG Suppository PR PRN (14:49)
[2021-07-06 15:34] VITALS: BMI 42.5
[2021-07-06 16:45] LABS: #Eosinphils 0.3 thou/uL (0.0-0.7); #Lymphocytes 0.8 thou/uL (1.20-3.40); #Monocytes 0.5 thou/uL (0.11-0.59); #Neutrophils 4.9 thou/uL (1.40-6.50); %Basophils 0.5 % (0.0-1.0); %Eosinophils 5.1 % (0.0-10.0); %Lymphocytes 11.8 % (21.0-51.0); %Monocytes 7.1 % (0.0-10.0); %Neutrophils 75.5 % (42.0-75.0); Hemoglobin 11.9 g/dL (14.0-18.0); Mean Corpuscular Hemoglobin 28.9 pg (27.0-31.0); Mean Corpuscular Volume 93.2 fL (78.0-98.0); Platelet Count 138 thou/uL (130-400); RBC Distribution Width 16.7 % (11.5-14.5); Red Blood Cell (RBC) Count 4.12 mill/uL (4.70-6.10); White Blood Cell (WBC) Count 6.5 thou/uL (4.8-10.8)
[2021-07-06 16:57] LABS: Hemoglobin A1c 4.7 % (4.0-6.0)
[2021-07-06 17:06] LABS: Cardiac Risk 3.9 (Less than 4.5)
[2021-07-06] MEDS: Atorvastatin Calcium 40 MG TAB PO SCH (20:51)
[2021-07-06] MEDS: hydrALAZINE 25 MG TAB PO SCH (20:51)
[2021-07-06] MEDS: Metoprolol Tartrate 25 MG TAB PO SCH (20:51)
[2021-07-06 23:43] LABS: SARS-CoV-2 PCR by NAA Not Detected (NotDetected)
[2021-07-07 06:30] LABS: #Eosinphils 0.3 thou/uL (0.0-0.7); #Lymphocytes 0.8 thou/uL (1.20-3.40); #Monocytes 0.3 thou/uL (0.11-0.59); #Neutrophils 4.3 thou/uL (1.40-6.50); %Basophils 0.6 % (0.0-1.0); %Eosinophils 4.9 % (0.0-10.0); %Lymphocytes 13.6 % (21.0-51.0); %Monocytes 5.9 % (0.0-10.0); %Neutrophils 75.1 % (42.0-75.0); Hemoglobin 12.2 g/dL (14.0-18.0); Mean Corpuscular HGB CONC 30.6 g/dL (32.0-36.0); Mean Corpuscular Hemoglobin 27.9 pg (27.0-31.0); Mean Corpuscular Volume 91.2 fL (78.0-98.0); Mean Platelet Volume 10.8 fL (7.4-10.4); Platelet Count 158 thou/uL (130-400); Red Blood Cell (RBC) Count 4.38 mill/uL (4.70-6.10); White Blood Cell (WBC) Count 5.7 thou/uL (4.8-10.8)
[2021-07-07 06:50] LABS: Anion Gap 11 mmol/L (10-20); BUN (Urea Nitrogen) 32 mg/dL (8.9-20.6); Calc. Creatinine Clearance 31 mL/min (70-130); Calcium 9.2 mg/dL (7.8-10.44); Carbon Dioxide 28 mmol/L (22-29); Chloride 109 mmol/L (98-107); Glucose 87 mg/dL (70-105); Potassium 4.4 mmol/L (3.5-5.1); Sodium 144 mmol/L (136-145)
[2021-07-07 07:09] LABS: HBSAB Concentration Less than 8.00 mIU/mL; HBSAg Index 0.21 S/CO (0-0.99); Hep B Core Total Ab Non-Reactive (NonReactive); Hep B Core Total Index 0.07 S/CO (0-0.79); Hep B Surf AB Non-Reactive (NonReactive); Hep B Surf Ag Non-Reactive S/CO (NonReactive); Hep C IgG Ab Non-Reactive (NonReactive); Hep C Index 0.27 S/CO (0-0.79)
[2021-07-07] MEDS: Amlodipine 10 MG TAB PO SCH (08:13)
[2021-07-07] MEDS: hydrALAZINE 25 MG TAB PO SCH ×3 (08:13→19:54)
[2021-07-07] MEDS: Metoprolol Tartrate 25 MG TAB PO SCH ×2 (08:13→19:54)
[2021-07-07] MEDS ORDERED: FLU VACC QS2021-22(6MOS UP)/PF 60 MCG/0.5 ML SYRINGE IM ONE (09:00)
[2021-07-07] MEDS ORDERED: CEFAZOLIN 2 GM in Premix Bag 1 BAG IVPB SCH (09:30)
[2021-07-07] MEDS ORDERED: ceFAZolin 2 GM/DEX 5% 100 ML BAG ONE (11:32)
[2021-07-07] MEDS ORDERED: Sodium Chloride 0.9% 20 ML ONE (11:48)
[2021-07-07] MEDS ORDERED: Bupivacaine PF 0.5% 30 ML VIAL ONE (11:48)
[2021-07-07] MEDS ORDERED: Lidocaine 1% w/Epinephrine 1:100K 20 ML VIAL ONE (11:48)
[2021-07-07] MEDS ORDERED: Heparin 10,000 UNITS/ 10 ML VIAL ONE ×2 (11:48→14:13)
[2021-07-07] MEDS ORDERED: Fentanyl 100 MCG/2 ML VIAL ONE (12:08)
[2021-07-07] MEDS ORDERED: Propofol 500 MG/50 ML VIAL ONE (12:08)
[2021-07-07] MEDS ORDERED: PACU-Morphine 4MG/ML VIAL SLOW IVP PRN (12:21)
[2021-07-07] MEDS ORDERED: Ondansetron HCl/PF 4 MG/2 ML Vial IVP PRN (12:21)
[2021-07-07] MEDS ORDERED: Promethazine HCl 25 MG/ML VIAL IM PRN (12:21)
[2021-07-07] MEDS ORDERED: Promethazine HCl 25 MG/ML VIAL IVPB PRN (12:21)
[2021-07-07] MEDS: Atorvastatin Calcium 40 MG TAB PO SCH (19:54)
[2021-07-08 06:56] LABS: Anion Gap 13 mmol/L (10-20); BUN (Urea Nitrogen) 29 mg/dL (8.9-20.6); Calc. Creatinine Clearance 32 mL/min (70-130); Calcium 8.4 mg/dL (7.8-10.44); Carbon Dioxide 26 mmol/L (22-29); Chloride 106 mmol/L (98-107); Glucose 82 mg/dL (70-105); Potassium 4.4 mmol/L (3.5-5.1); Sodium 141 mmol/L (136-145)
[2021-07-08] MEDS: hydrALAZINE 25 MG TAB PO SCH ×3 (08:23→21:13)
[2021-07-08] MEDS: Metoprolol Tartrate 25 MG TAB PO SCH ×2 (08:24→20:51)
[2021-07-08] MEDS: Amlodipine 10 MG TAB PO SCH (08:24)
[2021-07-08] MEDS ORDERED: Furosemide 40 MG TAB PO SCH (09:00)
[2021-07-08] MEDS ORDERED: Tuberculin PPD 0.1 ML VIAL I-DERMAL SCH (10:15)
[2021-07-08 10:25] LABS: #Eosinphils 0.3 thou/uL (0.0-0.7); #Lymphocytes 0.7 thou/uL (1.20-3.40); #Monocytes 0.4 thou/uL (0.11-0.59); #Neutrophils 6.3 thou/uL (1.40-6.50); %Basophils 0.3 % (0.0-1.0); %Eosinophils 3.9 % (0.0-10.0); %Lymphocytes 8.5 % (21.0-51.0); %Monocytes 5.3 % (0.0-10.0); %Neutrophils 82.1 % (42.0-75.0); Hemoglobin 11.3 g/dL (14.0-18.0); Mean Corpuscular HGB CONC 31.8 g/dL (32.0-36.0); Mean Corpuscular Hemoglobin 29.2 pg (27.0-31.0); Mean Corpuscular Volume 91.6 fL (78.0-98.0); Mean Platelet Volume 10.8 fL (7.4-10.4); Platelet Count 130 thou/uL (130-400); RBC Distribution Width 16.6 % (11.5-14.5); Red Blood Cell (RBC) Count 3.87 mill/uL (4.70-6.10); White Blood Cell (WBC) Count 7.7 thou/uL (4.8-10.8)
[2021-07-08] MEDS ORDERED: Heparin 10,000 UNITS/ 10 ML VIAL ONE (14:19)
[2021-07-08] MEDS: Atorvastatin Calcium 40 MG TAB PO SCH (20:51)
[2021-07-09 06:52] LABS: #Basophils 0.1 thou/uL (0.0-0.2); #Eosinphils 0.3 thou/uL (0.0-0.7); #Monocytes 0.6 thou/uL (0.11-0.59); #Neutrophils 6.3 thou/uL (1.40-6.50); %Basophils 0.8 % (0.0-1.0); %Eosinophils 3.3 % (0.0-10.0); %Lymphocytes 12.4 % (21.0-51.0); %Monocytes 7.3 % (0.0-10.0); %Neutrophils 76.3 % (42.0-75.0); Mean Corpuscular HGB CONC 30.7 g/dL (32.0-36.0); Mean Corpuscular Hemoglobin 28.2 pg (27.0-31.0); Mean Corpuscular Volume 91.8 fL (78.0-98.0); Platelet Count 147 thou/uL (130-400); RBC Distribution Width 16.6 % (11.5-14.5); Red Blood Cell (RBC) Count 4.25 mill/uL (4.70-6.10); White Blood Cell (WBC) Count 8.2 thou/uL (4.8-10.8)
[2021-07-09 07:43] LABS: Chloride 104 mmol/L (98-107); Potassium 3.5 mmol/L (3.5-5.1); Sodium 138 mmol/L (136-145)
[2021-07-09 07:44] LABS: Calcium 8.8 mg/dL (7.8-10.44); Glucose 93 mg/dL (70-105)
[2021-07-09 07:46] LABS: Anion Gap 11 mmol/L (10-20); Carbon Dioxide 27 mmol/L (22-29)
[2021-07-09 07:48] LABS: BUN (Urea Nitrogen) 26 mg/dL (8.9-20.6); Calc. Creatinine Clearance 32 mL/min (70-130)
[2021-07-09] MEDS: hydrALAZINE 25 MG TAB PO SCH ×3 (09:52→20:39)
[2021-07-09] MEDS: Amlodipine 10 MG TAB PO SCH (09:53)
[2021-07-09] MEDS: Metoprolol Tartrate 25 MG TAB PO SCH ×2 (09:53→20:43)
[2021-07-09] MEDS: Atorvastatin Calcium 40 MG TAB PO SCH (20:39)
[2021-07-10] MEDS: Metoprolol Tartrate 25 MG TAB PO SCH ×2 (09:19→20:32)
[2021-07-10] MEDS: hydrALAZINE 25 MG TAB PO SCH ×3 (09:19→20:31)
[2021-07-10] MEDS: Amlodipine 10 MG TAB PO SCH (09:21)
[2021-07-10] MEDS ORDERED: READ PPD TEST SITE PO SCH (10:15)
[2021-07-10 11:31] LABS: Anion Gap 9 mmol/L (10-20); BUN (Urea Nitrogen) 23 mg/dL (8.9-20.6); Calc. Creatinine Clearance 43 mL/min (70-130); Calcium 5.9 mg/dL (7.8-10.44); Carbon Dioxide 20 mmol/L (22-29); Chloride 117 mmol/L (98-107); Glucose 98 mg/dL (70-105); Potassium 2.4 mmol/L (3.5-5.1); Sodium 144 mmol/L (136-145)
[2021-07-10] MEDS ORDERED: Calcium Gluconate 4.6 MEQ in Sodium Chloride 0.9% 100 ML IVPB ONE (12:16)
[2021-07-10] MEDS ORDERED: Potassium Chloride 20 MEQ TAB PO SCH ×2 (12:30→13:15)
[2021-07-10 12:44] LABS: Anion Gap 12 mmol/L (10-20); BUN (Urea Nitrogen) 30 mg/dL (8.9-20.6); Calc. Creatinine Clearance 28 mL/min (70-130); Carbon Dioxide 28 mmol/L (22-29); Chloride 105 mmol/L (98-107); Glucose 124 mg/dL (70-105); Potassium 3.5 mmol/L (3.5-5.1); Sodium 141 mmol/L (136-145)
[2021-07-10] MEDS: Atorvastatin Calcium 40 MG TAB PO SCH (20:31)
[2021-07-11 07:14] LABS: Calcium 8.7 mg/dL (7.8-10.44); Chloride 107 mmol/L (98-107); Potassium 3.9 mmol/L (3.5-5.1); Sodium 142 mmol/L (136-145)
[2021-07-11 07:15] LABS: Glucose 97 mg/dL (70-105)
[2021-07-11 07:16] LABS: Anion Gap 12 mmol/L (10-20); Carbon Dioxide 27 mmol/L (22-29)
[2021-07-11 07:18] LABS: Calc. Creatinine Clearance 28 mL/min (70-130)
[2021-07-11 07:19] LABS: BUN (Urea Nitrogen) 35 mg/dL (8.9-20.6)
[2021-07-11] MEDS ORDERED: Heparin 10,000 UNITS/ 10 ML VIAL ONE (08:43)
[2021-07-11] MEDS: Amlodipine 10 MG TAB PO SCH (11:54)
[2021-07-11] MEDS: hydrALAZINE 25 MG TAB PO SCH ×2 (12:05→15:18)
[2021-07-11] MEDS: Metoprolol Tartrate 25 MG TAB PO SCH (12:06)
[2021-07-11 16:12] VITALS: BP 109/76; TEMP 98.2
== END 2021-07-11 16:31 | disposition home or self-care (01) | DRG 291 ==
LOC: ERS 09:57 → T4-B 13:26
PROVIDERS: ADMIT Family Medicine; ATTEND Internal Medicine
PROC: 0JH60XZ Insertion of Tunneled Vascular Access Device into Chest Subcutaneous Tissue and Fascia, Open Approach (ICD-10-PCS; principal; 2021-07-07)
PROC: 02HV33Z Insertion of Infusion Device into Superior Vena Cava, Percutaneous Approach (ICD-10-PCS; 2021-07-07)
PROC: B5181ZA Fluoroscopy of Superior Vena Cava using Low Osmolar Contrast, Guidance (ICD-10-PCS; 2021-07-07)
PROC: B548ZZA Ultrasonography of Superior Vena Cava, Guidance (ICD-10-PCS; 2021-07-07)
PROC: 5A1D70Z Performance of Urinary Filtration, Intermittent, Less than 6 Hours Per Day (ICD-10-PCS; 2021-07-07)
DX: I13.2 Hypertensive heart and chronic kidney disease with heart failure and with stage 5 chronic kidney disease, or end stage renal disease (principal); N18.6 End stage renal disease; Z68.41 Body mass index [BMI] 40.0-44.9, adult; I50.32 Chronic diastolic (congestive) heart failure; E78.5 Hyperlipidemia, unspecified; J45.909 Unspecified asthma, uncomplicated; G47.33 Obstructive sleep apnea (adult) (pediatric); Z20.822 Contact with and (suspected) exposure to COVID-19; I48.91 Unspecified atrial fibrillation; E11.22 Type 2 diabetes mellitus with diabetic chronic kidney disease; E66.01 Morbid (severe) obesity due to excess calories; D63.1 Anemia in chronic kidney disease; E88.09 Other disorders of plasma-protein metabolism, not elsewhere classified; E88.81 Metabolic syndrome and other insulin resistance; R80.9 Proteinuria, unspecified
CPT/HCPCS: 36415; 70450; 71045; 80048; 80053; 80061; 81003; 81015; 82550; 83036; 83880; 84484; 85025; 86580; 86704; 86706; 86803; 87340; 90935; 93005; 93970; 97139; C1751; C1752; G0257; J1644; J2704; J3010; S0020; U0003; U0005

== ENCOUNTER 2023-06-05 09:31 | Outpatient (CLI) | payer MEDICARE | END 2023-06-05 09:32 | disposition home or self-care (01) | LOC: MRI 09:31 | PROVIDERS: ATTEND Family Medicine | DX: M47.26 Other spondylosis with radiculopathy, lumbar region (principal); M51.37 Other intervertebral disc degeneration, lumbosacral region; M47.817 Spondylosis without myelopathy or radiculopathy, lumbosacral region; M48.07 Spinal stenosis, lumbosacral region | CPT/HCPCS: 72148 ==

== ENCOUNTER 2025-08-11 08:42 | Outpatient (CLI) | payer MEDICARE, OTHER | END 2025-08-11 08:43 | disposition home or self-care (01) | LOC: BICRAD 08:42 | PROVIDERS: ATTEND Internal Medicine Nephrology | DX: Z11.1 Encounter for screening for respiratory tuberculosis (principal) | CPT/HCPCS: 71046 ==